=== PATIENT | male | born 1960 | race Caucasian/White ===

== ENCOUNTER → 2019-12-03 | Outpatient (CLI) | payer MEDICARE ==
--- NOTE | 2019-12-03 12:09 | NM ---
EXAMINATION TYPE: NM stress lexiscan cardiolite DATE OF EXAM: 12/03/2019 COMPARISON: None HISTORY: Chest pain TECHNIQUE: Patient received 9.8 and 26.3 mCi technetium 99m Cardiolite intravenously on protocol was 0.4 mg Lexiscan IV FINDINGS: Review of stress and rest SPECT images demonstrates decreased radio pharmaceutical uptake on stress a nd rest images along the inferolateral left ventricle extending to the cardiac apex. There is some d ecreased uptake along the lateral wall towards apex greater on stress images than on rest images, dec reased uptake along the portion of the apex greater on stress than on rest images. Gated analysis asya ws normal wall motion with an estimated left ventricular ejection fraction of 58 %. 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 A Yellow level critical message alert has been initiated for Cely Gillespie DO via the [employer] Critical Results System on 12/03/2019 12:06 PM. This message alert has been sent [facility] via the preferences provided by the clinician for the receipt of Radiology Critical Findings . Message ID [id number].
--- NOTE | 2019-12-03 14:21 | ECHOS ---
STRESS ECHOCARDIOGRAM LUMASON: VIAL: INDICATIONS: Chest pain. MEDICATIONS: BASELINE HEART RATE: 78 BASELINE BLOOD PRESSURE: 139/68 MAXIMUM HEART RATE: 113 MAXIMUM BLOOD PRESSURE: 144/92 85% MPHR: 139 100% MPHR: 163 METS: MAXIMUM STAGE REACHED: TOTAL EXERCISE TIME: CLINICAL INFORMATION: Baseline EKG revealed normal sinus rhythm without significant ST-T changes. There was an incomplete right bundle branch block pattern. With Lexiscan administration heart rate changed from 78 to 108 beats per minute and blood pressure changed from 139/68 to 134/91. EKG remained unremarkable and patient was asymptomatic. IMPRESSION: 1. By EKG criteria, this is an unremarkable Lexiscan stress test with minor resting EKG changes. 2. The nuclear scan results which are more pertinent will be reported by the radiologist. MMESTUARDO / IJN: [id number] /
== END | disposition home or self-care (01) ==
LOC: RADNMMAIN 08:15
PROVIDERS: ATTEND Family Medicine
DX: I25.2 Old myocardial infarction (principal)
CPT/HCPCS: 93017; 78452; A9500

== ENCOUNTER → 2019-12-14 | Outpatient (CLI) | payer MEDICARE ==
[2019-12-14 08:27] LABS: MCH 32.4 pg (25.0-35.0); MCHC 32.3 g/dL (31.0-37.0); MCV 100.4 fL (80.0-100.0); Mean Platelet Volume 6.5; Platelet Count 259 k/uL (150-450); RBC 5.56 m/uL (4.30-5.90); RDW 13.2 % (11.5-15.5); WBC 9.1 k/uL (3.8-10.6)
[2019-12-14 08:28] LABS: Potassium 4.5 mmol/L (3.5-5.1)
[2019-12-14 08:40] LABS: HCT 55.9 % (39.0-53.0)
== END | disposition home or self-care (01) ==
LOC: LABPAT 07:04
PROVIDERS: ATTEND Internal Medicine Cardiovascular Disease
DX: Z01.818 Encounter for other preprocedural examination (principal); R07.2 Precordial pain
CPT/HCPCS: 36415; 80051; 82565; 84520; 85027

== ENCOUNTER → 2019-12-17 | Day surgery (SDC) | payer MEDICARE ==
[2019-12-16 09:38] VITALS: BMI 38.2
[~2019-12-17] MED LIST: ALPRAZolam 0.25 MG TAB PO PRN; ALPRAZolam 0.5 MG TAB PO PRN; ASPIRIN 325 MG TAB PO ONE; ASPIRIN 81 MG PO SCH; ATORVASTATIN 80 MG TAB PO ONE; ATROPINE SULFATE 0.1 MG/ML 10ML SYRINGE IV PRN; CLOPIDOGREL 75 MG TAB ONE; CLOPIDOGREL 75 MG TAB PO ONE; CLOPIDOGREL 75 MG TAB PO SCH; HEPARIN SODIUM 1,000 UN/ML (10ML VL) IV ONE; HEPARIN SODIUM 1,000 UN/ML (10ML VL) ONE; IOPAMIDOL-370 100ML BTL INJ ONE; IOPAMIDOL-370 125ML BTL INJ ONE; LIDOCAINE 1% INJ 10MG/ML (20 ML MDV) ONE; LIDOCAINE 1% INJ 10MG/ML (20 ML MDV) SQ ONE; MAG HYDROX/AL HYDROX/SIMETH 30 ML CUP PO PRN; MIDAZOLAM 2 MG/2 ML VIAL IVP ONE; NITROGLYCERIN SL TABS 0.4 MG TAB SUBLINGUAL PRN; RX INFO: IV CONTRAST WAS GIVEN 1 EACH MISC MISCELLANE PRN; SODIUM CHLORIDE 0.9% 1,000 ML in EMPTY BAG 1 BAG IV ONE; ZOLPIDEM 5 MG TAB PO PRN; fentaNYL (PF) 50 MCG/ML 2 ML AMP IV ONE; fentaNYL (PF) 50 MCG/ML 2 ML AMP ONE
[2019-12-17 06:59] VITALS: RESP 18; TEMP 97.9
--- NOTE | 2019-12-17 08:59 | P.PRCINT ---
Percutaneous Coronary Int. - Percutaneous Coronary Intervention Percutaneous Coronary Intervention: PROCEDURES PERFORMED: Selective left coronary angiography, iFR of mid LAD, successful PCI of mid LAD with overlapping 3.0 x 15 mm and 2.75 x 8 mm Xience SHERINE. INDICATION: Abnormal stress test, angina HISTORY: Patient is a 59-year-old male with history of tobacco abuse, hypertension who has been having chest pain over the last few weeks. Patient had a stress test which showed inferior ischemia. Patient had a diagnostic catheterization performed by my partner and I was asked to evaluate for possible PCI. PROCEDURE: After the risks, benefits and alternatives of the above mentioned procedure explained in detail with the patient, informed consent was obtained. The decision was made to iFR the LAD given it was indeterminate and ischemia was in the inferior territory. A 6Fr sheath had been placed in the right femoral artery using modified Seldinger technique. A 6Fr CLS 3.5 guide catheter was used to engage the left main. A 0.014 pressure guidewire was placed distal to the mid LAD lesion and iFR was performed. iFR was positive at 0.85. A 0.014 BMW wire was advanced into the distal LAD and then a second BMW wire was placed in the diagonal branch. The lesion was predilated with a 2.75 x 12 mm balloon. Next, a 3.0 x 15 mm Xience SHERINE was deployed. There was a distal stent dissection and therefore this was covered with a 2.75 x 8 mm Xience SHERINE. Preintervention there was a 60-70 % stenosis and ERIC 3 flow and post intervention there was 0% residual stenosis and ERIC 3 flow without evidence of dissection. The wire was removed and final angiograms were taken. A right femoral angiogram was performed and showed adequate anatomy for closure. An Angio-Seal was placed. The patient tolerated the procedure well. Patient was transported back to the post catheterization holding area in stable condition. Conscious Sedation: Patient was monitored under the direct supervision of vision of myself for conscious sedation using Versed and fentanyl for a total duration of 45 minutes HEMODYNAMICS: Aorta: 132/72 SELECTIVE CORONARY ARTERIOGRAPHY: LEFT MAIN: The left main is a large caliber vessel which bifurcates into the LAD and circumflex. There is no significant stenosis. LEFT ANTERIOR DESCENDING CORONARY ARTERY: LAD is a large caliber vessel which wraps around to the apex. There is a mid LAD 60-70% stenosis just before a small to moderate caliber diagonal 2 branch without significant disease. LEFT CIRCUMFLEX CORONARY ARTERY: Left circumflex is a moderate caliber vessel without significant stenosis. RIGHT CORONARY ARTERY: Not imaged, see diagnostic report FINAL IMPRESSION: 1. Coronary artery disease as above with iFR positive mid LAD lesion at 0.85 2. Successful PCI of mid LAD with overlapping 3.0 x 15 mm and 2.75 x 8 mm Xience SHERINE. PLAN: 1. Aggressive risk factor modification per most recent ACC/AHA guidelines. 2. Follow-up in the office in 1-2 weeks. 3. Tobacco cessation 4. Dual antiplatelets for 12 months.
[2019-12-17 12:15] VITALS: PULSE 70
--- NOTE | 2019-12-17 13:26 | CC ---
CARDIAC CATHETERIZATION REPORT INDICATION: Chest pain with abnormal stress test. PROCEDURE NOTE: After obtaining informed consent, left heart catheterization and coronary angiogram are performed via the right femoral artery using standard Erich catheters. Patient tolerated the procedure well without any obvious immediate complications. The patient received moderate conscious sedation. Total sedation time was 15 minutes. FINDINGS: HEMODYNAMICS: Left ventricular end-diastolic pressure is 12-14 mm. There is no significant gradient across the aortic valve. LEFT VENTRICULOGRAM: Not performed. ANGIOGRAPHIC DATA: LEFT MAIN CORONARY ARTERY: Left main coronary artery is a normal-sized vessel and is free of stenosis. Divides into left anterior descending coronary artery and circumflex coronary artery. CIRCUMFLEX CORONARY ARTERY: Circumflex coronary artery is a nondominant vessel and is free of significant disease. LEFT ANTERIOR DESCENDING CORONARY ARTERY: Left anterior descending coronary artery shows a focal area of stenosis in the proximal part which seems to be a 50% to 70% stenosis. RIGHT CORONARY ARTERY: Right coronary artery is a large dominant vessel, shows mild atherosclerotic plaque in the proximal portion but there are no focal hemodynamically significant lesions. CONCLUSIONS: Moderate to severe area of stenosis in the proximal LAD. PLAN: I am going to ask Dr. Rai the on-call vp outcomes to evaluate the LAD and either do angioplasty of the vessels or at least perform an FFR. It does not correlate with the patient's stress test. The patient definitely had symptoms suggestive of angina. MMODL / IJN: [id number] /
[2019-12-17 14:17] VITALS: BP 125/73
== END ==
LOC: CATHCVL 06:23
PROVIDERS: ATTEND Internal Medicine Cardiovascular Disease
DX: I25.10 Atherosclerotic heart disease of native coronary artery without angina pectoris (principal); R94.39 Abnormal result of other cardiovascular function study; R07.89 Other chest pain; R07.2 Precordial pain; I45.10 Unspecified right bundle-branch block; E78.5 Hyperlipidemia, unspecified; F32.9 Major depressive disorder, single episode, unspecified; E78.2 Mixed hyperlipidemia; I10 Essential (primary) hypertension; F17.210 Nicotine dependence, cigarettes, uncomplicated; Z79.899 Other long term (current) drug therapy; Z79.890 Hormone replacement therapy; Z82.49 Family history of ischemic heart disease and other diseases of the circulatory system
CPT/HCPCS: 93571; 93458; 85347; C9600; C1769 ×3; C1760; C1887; C1725; C1894; C1874; J2250; J2001; J3010; J1644; Q9967 ×2

== ENCOUNTER 2021-06-25 11:47 | Inpatient (IN) | payer BC, MEDICARE, OTHER ==
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
[2021-06-25 12:42] LABS: Basophils # (A) 0.1 k/uL (0-0.2); Basophils % (A) 1 %; Eosinophils # (A) 0.2 k/uL (0-0.7); Eosinophils % (A) 2 %; HCT 54.6 % (39.0-53.0); HGB 17.7 gm/dL (13.0-17.5); Lymphocytes # (A) 1.8 k/uL (1.0-4.8); Lymphocytes % (A) 19 %; MCH 33.9 pg (25.0-35.0); MCHC 32.3 g/dL (31.0-37.0); MCV 104.9 fL (80.0-100.0); Macrocytosis Moderate; Monocytes # (A) 0.7 k/uL (0-1.0); Monocytes % (A) 8 %; Neutrophils # (A) 6.6 k/uL (1.3-7.7); Neutrophils % (A) 69 %; Platelet Count 214 k/uL (150-450); RBC 5.21 m/uL (4.30-5.90); WBC 9.6 k/uL (3.8-10.6)
[2021-06-25 12:53] LABS: ALT 24 U/L (4-49); AST 27 U/L (17-59); African American GFR (CKD) >90 (>60 ml/min/1.73 sqM); Alkaline Phosphatase 117 U/L (38-126); Anion Gap 5 mmol/L; Blood Urea Nitrogen 10 mg/dL (9-20); Calcium 8.6 mg/dL (8.4-10.2); Carbon Dioxide 34 mmol/L (22-30); Chloride 93 mmol/L (98-107); Glucose 103 mg/dL (74-99); Non-African American GFR(CKD) 90 (>60 ml/min/1.73 sqM); Potassium 4.3 mmol/L (3.5-5.1); Sodium 132 mmol/L (137-145); Total Bilirubin 0.8 mg/dL (0.2-1.3); Total Protein 6.9 g/dL (6.3-8.2)
--- NOTE | 2021-06-25 12:57 | XR ---
EXAMINATION TYPE: XR chest 2V DATE OF EXAM: 06/25/2021 COMPARISON: NONE TECHNIQUE: PA and lateral views submitted. HISTORY: Chest pain FINDINGS: Heart is prominent there is a coarsened interstitium with bibasilar infiltrate and tiny effusion. Art hropathy of the shoulders with biapical pleural thickening but no pneumothorax. IMPRESSION: 1. Correlate for mild CHF otherwise consider interstitial pneumonia or pneumonitis.
[2021-06-25 13:06] LABS: INR 1.1 (<1.2); Partial Thromboplastin Time 26.8 sec (22.0-30.0); Prothrombin Time 11.3 sec (9.0-12.0)
--- NOTE | 2021-06-25 14:38 | CT ---
EXAMINATION TYPE: CT angio chest DATE OF EXAM: 06/25/2021 COMPARISON: No previous CT scan is available for comparison. HISTORY: SHELL (difficulty breathing) CT DLP: 666 mGy.cm. Automated Exposure Control for Dose Reduction was Utilized. TECHNIQUE AND CONTRAST: CTA scan of the thorax is performed with IV Contrast, patient injected with 100 mL of Isovue 370, pul monary angiogram protocol. MIP Images are created on an independent workstation and reviewed. FINDINGS: Suboptimal CT scan with artifactual images and suboptimal enhancement of the pulmonary arteries. No d efinite filling defect within the pulmonary trunk, main pulmonary arteries, lobar and segmental branc hes to suggest pulmonary embolism. Subsegmental branches are suboptimally assessed. The pulmonary hector nk measures 3.4 cm, suggestive of pulmonary hypertension. Coronary and arterial atherosclerotic calci fications. No gross cardiomegaly. Scattered bilateral subsegmental pulmonary atelectasis with minimal infiltration in the posterior asp ect of the lung bases. Pulmonary edema can't be excluded. No gross lung lesion identified with the li mitation of the artifactual images. Expiratory exposure. Patent trachea and main bronchi. No pericard ial or pleural effusion. Questionable prominent right superior paratracheal lymph node versus cyst measuring 10 mm. 9.5 mm rig ht inferior paratracheal lymph node with 13 mm subcarinal lymph node. No other pathologically enlarge d lymph nodes in the chest by this CT angiographic study. Bulky liver with suspected hepatic steatosi s. Degenerative changes of the thoracic spine. IMPRESSION: With the limitation of the artifactual images, no major or central pulmonary embolism. Suspected pulm onary edema. Prominent lymph nodes as described above, for precautionary follow-up CT scan in 3 month s for reassessment. Other findings as described above.
[2021-06-25] MEDS ORDERED: NALOXONE 0.4 MG/ML 1 ML VIAL IV PRN (15:03)
[2021-06-25] MEDS ORDERED: ACETAMINOPHEN TAB 325 MG TAB PO PRN (15:03)
[2021-06-25] MEDS ORDERED: predniSONE 50 MG TAB PO STA (15:06)
[2021-06-25 15:07] LABS: VBG PH 7.29 (7.31-7.41)
[2021-06-25 15:15] LABS: Appearance,Urine Clear (Clear); Bilirubin,Urine Negative (Negative); Blood,Urine Negative (Negative); Color,Urine Yellow; Glucose,Urine (UA) Negative (Negative); Ketones,Urine Negative (Negative); Leukocyte Esterase,Urine Negative (Negative); Nitrite,Urine Negative (Negative); PH, Urine 6.5 (5.0-8.0); Protein,Urine Negative (Negative); Urobilinogen,Urine <2.0 mg/dL (<2.0)
[2021-06-25] MEDS: IPRATROPIUM-ALBUTEROL 3 ML NEB INHALATION SCH ×2 (15:21→19:55)
[2021-06-25 18:17] LABS: VBG PH 7.24 (7.31-7.41)
[2021-06-25] MEDS ORDERED: LORazepam 2 MG/ML INJ IV PRN (19:31)
[2021-06-25] MEDS ORDERED: THIAMINE 100 MG/ML 2 ML VIAL IM STA (19:31)
[2021-06-25] MEDS: OLANZapine 10 MG TAB PO SCH (20:23)
[2021-06-25] MEDS: lamoTRIgine 100 MG TAB PO SCH (20:23)
[2021-06-25] MEDS: ESCITALOPRAM 20 MG TAB PO SCH (20:23)
[2021-06-25] MEDS: THIAMINE 100 MG TAB PO SCH (20:25)
[2021-06-26] MEDS: LORazepam 2 MG/ML INJ IV PRN ×5 (04:48→22:59)
[2021-06-26] MEDS: LEVOTHYROXINE 25 MCG TAB PO SCH (05:36)
[2021-06-26] MEDS: THIAMINE 100 MG TAB PO SCH ×2 (05:36→16:50)
[2021-06-26] MEDS: ASPIRIN 81 MG PO SCH (08:22)
[2021-06-26] MEDS: ISOSORBIDE MONONITRATE ER 30 MG TAB.ER.24H PO SCH (08:22)
[2021-06-26] MEDS: MULTIVITAMINS, THERA 1 EACH TAB PO SCH (08:22)
[2021-06-26] MEDS: lamoTRIgine 100 MG TAB PO SCH ×2 (08:22→20:21)
[2021-06-26] MEDS ORDERED: FUROSEMIDE 10 MG/ML 4 ML VIAL IV STA (08:53)
[2021-06-26] MEDS ORDERED: predniSONE 50 MG TAB PO SCH (09:00)
[2021-06-26] MEDS: IPRATROPIUM-ALBUTEROL 3 ML NEB INHALATION SCH ×5 (09:09→19:14)
[2021-06-26] MEDS: methylPREDNISolone SOD SUCCI 40 MG/ML 1 ML VIAL IV SCH ×3 (09:27→23:01)
[2021-06-26 11:06] LABS: ABG Base Excess 15.6 mmol/L; ABG Oxygen Saturation 91.4 % (94-97); ABG PH 7.37 (7.35-7.45); ABG TCO2 43 mmol/L (19-24); Allen Test Performed? Yes
[2021-06-26 11:10] LABS: ABG PCO2 71 mmHg (35-45); ABG PO2 56 mmHg (83-108)
[2021-06-26 11:11] LABS: ABG HCO3 41 mmol/L (21-25)
[2021-06-26 11:35] LABS: African American GFR (CKD) >90 (>60 ml/min/1.73 sqM); Anion Gap 4 mmol/L; Blood Urea Nitrogen 11 mg/dL (9-20); Calcium 9.3 mg/dL (8.4-10.2); Chloride 96 mmol/L (98-107); Glucose 112 mg/dL (74-99); Non-African American GFR(CKD) 80 (>60 ml/min/1.73 sqM); Potassium 4.2 mmol/L (3.5-5.1); Sodium 140 mmol/L (137-145)
[2021-06-26 11:55] LABS: Carbon Dioxide 40 mmol/L (22-30)
--- NOTE | 2021-06-26 13:00 | ECHOF ---
Referral Reason:wilberto MEASUREMENTS -------- HEIGHT: 167.6 cm WEIGHT: 116.1 kg BP: IVSd: 1.3 cm (0.6 - 1.1) LVIDd: 3.2 cm (3.9 - 5.3) LVPWd: 1.5 cm (0.6 - 1.1) IVSs: 1.5 cm LVIDs: 1.5 cm LVPWs: 1.7 cm Ao Diam: 3.3 cm (2.0 - 3.7) LA Diam: 3.6 cm (2.7 - 3.8) RAP: 5.00 mmHg RVSP: 9.71 mmHg FINDINGS -------- This was a technically difficult study with suboptimal views. The left ventricular size is normal. There is moderate concentric left ventricular hypertrophy. O verall left ventricular systolic function is normal with, an EF between 55 - 60 %. The RV was not well visualized. The left atrial size is normal. The right atrium was not well visualized. Lumason used The aortic valve was not well visualized. The mitral valve was not well visualized. The tricuspid valve was not well visualized. The pulmonic valve was not well visualized. The aortic root size is normal. IVC Not well visulized. CONCLUSIONS -------- 1. The left ventricular size is normal. 2. There is moderate concentric left ventricular hypertrophy. 3. Overall left ventricular systolic function is normal with, an EF between 55 - 60 %. TALENT ACQUISITION ASSISTANT: Maddy Dia [facility]
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
[2021-06-26] MEDS: FUROSEMIDE 10 MG/ML 4 ML VIAL IV SCH ×2 (16:00→23:02)
[2021-06-26] MEDS: ENOXAPARIN 40 MG/0.4 ML SYRINGE SQ SCH (16:01)
[2021-06-26] MEDS: SYMBICORT 160-4.5 MCG INHALER INHALATION SCH (19:16)
[2021-06-26 20:13] LABS: Glucose,Whole Blood 177 mg/dL (75-99)
[2021-06-26] MEDS: ATORVASTATIN 40 MG TAB PO SCH (20:21)
[2021-06-26] MEDS: ESCITALOPRAM 20 MG TAB PO SCH (20:21)
[2021-06-26] MEDS: OLANZapine 10 MG TAB PO SCH (20:22)
[2021-06-26] MEDS: INSULIN ASPART (NovoLOG) 100 UNIT/ML VIAL SQ SCH (20:24)
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
[2021-06-27 06:04] LABS: Glucose,Whole Blood 116 mg/dL (75-99)
[2021-06-27] MEDS: LEVOTHYROXINE 25 MCG TAB PO SCH (06:04)
[2021-06-27] MEDS: INSULIN ASPART (NovoLOG) 100 UNIT/ML VIAL SQ SCH ×3 (06:04→17:08)
[2021-06-27] MEDS: PANTOPRAZOLE 40 MG TABLET PO SCH (06:05)
[2021-06-27] MEDS: THIAMINE 100 MG TAB PO SCH ×2 (06:05→15:12)
[2021-06-27] MEDS: SYMBICORT 160-4.5 MCG INHALER INHALATION SCH ×3 (07:31→19:34)
[2021-06-27] MEDS: IPRATROPIUM-ALBUTEROL 3 ML NEB INHALATION SCH ×4 (07:31→19:19)
[2021-06-27] MEDS: FUROSEMIDE 10 MG/ML 4 ML VIAL IV SCH (08:07)
[2021-06-27] MEDS: methylPREDNISolone SOD SUCCI 40 MG/ML 1 ML VIAL IV SCH ×2 (08:08→15:13)
[2021-06-27] MEDS: lamoTRIgine 100 MG TAB PO SCH ×2 (08:11→21:05)
[2021-06-27] MEDS: MULTIVITAMINS, THERA 1 EACH TAB PO SCH (08:12)
[2021-06-27] MEDS: ISOSORBIDE MONONITRATE ER 30 MG TAB.ER.24H PO SCH (08:12)
[2021-06-27] MEDS: ENOXAPARIN 40 MG/0.4 ML SYRINGE SQ SCH (08:12)
[2021-06-27] MEDS: ASPIRIN 81 MG PO SCH (08:12)
[2021-06-27] MEDS: LORazepam 2 MG/ML INJ IV PRN ×5 (08:13→23:33)
--- NOTE | 2021-06-27 08:34 | XR ---
EXAMINATION TYPE: XR chest 1V portable DATE OF EXAM: 06/27/2021 COMPARISON: 06/25/2021 HISTORY: Shortness of breath TECHNIQUE: Single frontal view of the chest is obtained. FINDINGS: Bilateral infiltrate and small left effusion with coarsened interstitium and mild cardiome ladan. No pneumothorax. Arthropathy of the shoulders. IMPRESSION: Correlate for mild CHF or interstitial pneumonitis. Superimposed left lower lobe infiltrate not exclu ded.
[2021-06-27 09:15] LABS: Basophils % (A) 0 %; Eosinophils % (A) 0 %; HGB 18.3 gm/dL (13.0-17.5); Hypochromasia Slight; Lymphocytes # (A) 1.9 k/uL (1.0-4.8); Lymphocytes % (A) 15 %; MCHC 32.2 g/dL (31.0-37.0); MCV 108.8 fL (80.0-100.0); Macrocytosis Marked; Mean Platelet Volume 7.1; Monocytes # (A) 0.7 k/uL (0-1.0); Monocytes % (A) 5 %; Neutrophils # (A) 9.7 k/uL (1.3-7.7); Neutrophils % (A) 77 %; Platelet Count 241 k/uL (150-450); RBC 5.22 m/uL (4.30-5.90); RDW 14.6 % (11.5-15.5); WBC 12.6 k/uL (3.8-10.6)
[2021-06-27 09:25] LABS: ALT 22 U/L (4-49); AST 22 U/L (17-59); African American GFR (CKD) >90 (>60 ml/min/1.73 sqM); Albumin 4.2 g/dL (3.5-5.0); Alkaline Phosphatase 111 U/L (38-126); Blood Urea Nitrogen 21 mg/dL (9-20); Calcium 9.5 mg/dL (8.4-10.2); Chloride 91 mmol/L (98-107); Glucose 139 mg/dL (74-99); Non-African American GFR(CKD) 82 (>60 ml/min/1.73 sqM); Potassium 3.7 mmol/L (3.5-5.1); Sodium 139 mmol/L (137-145); Total Bilirubin 0.9 mg/dL (0.2-1.3); Total Protein 7.2 g/dL (6.3-8.2)
[2021-06-27 09:28] LABS: HCT 56.7 % (39.0-53.0)
[2021-06-27 09:32] LABS: Anion Gap 11 mmol/L
[2021-06-27 09:40] LABS: Carbon Dioxide 37 mmol/L (22-30)
--- NOTE | 2021-06-27 11:03 | P.PN ---
Subjective Progress Note Date: 06/27/21 Principal diagnosis: Altered mental status, confusion, shortness of breath This is a 61-year-old white male with history of coronary artery disease, previous PCI of mid LAD done back in 2019, known history of COPD, patient is at least a [id number] smoker, history of degenerative joint disease, seizure disorder, patient presented to the ER with 2 weeks history of intermittent episodes of cough, wheezing, shortness of breath, and fatigue. Patient has been experiencing difficulty laying flat, and in spite of all of this, the patient continues to smoke on a daily basis. Workup in the ER showed relative hypoxemia, hypercapnia, and acute on chronic respiratory acidosis with metabolic compensation. His pCO2 was high as 84, and on BiPAP, ABG showed a pO2 of 56 pCO2 71 pH of 7.37 and this was on 55% FiO2 with IPAP of 12 and EPAP of 6. His bicarb was about 40. Troponin was relatively normal. Chest x-ray and CT of the chest consistent with congestive heart failure, and no evidence of pulmonary embolism, there was also some nonspecific prominence of the lymph nodes in the subcarinal area. However the size was anywhere between 10 mm up to 30 mm. At any rate patient was in moderate respiratory distress, admitted, placed on diuretics, bronchodilators, and I was asked to see him on consultation. Patient was quite short of breath, could not give me much history, however I was able to get most of the history from his at bedside. Patient had no fever, no ch ills, no hemoptysis and no chest pain. No nausea no vomiting no abdominal pain, no melena and no hematemesis. On 06/27/2021 patient seen in follow-up on selective care unit. Still remains on BiPAP with pressures of 12 and 6 and FiO2 of 35%, and his pulse ox is at 90- 91%. He is arousable, but still lethargic, he did receive a couple doses of Ativan through the night for restlessness per CIWA protocol. He is answering simple questions, he continues on Lasix 40 mg every 8 hours, he is in -1682 mL net fluid balance over the last 24 hours, still continues with a diffuse wheezing, and coughing, no phlegm production. Today's chest x-ray continues to show bilateral infiltrate and small pleural effusion with coarsened interstitium and mild cardiomegaly. Echocardiogram showed moderate concentric LVH, and EF of 55-60%. His labs have been reviewed, white blood cell count is 12.6, hemoglobin is 18.3, sodium is 139, potassium is 3.7, chloride is 91, CO2 37, BUN is 21 creatinine is 1. Procan SR level was negative, troponins were negative 3. Objective - Vital Signs Vital signs: Vital Signs Temp 97.6 F 06/27/21 07:23 Pulse 94 06/27/21 07:57 Resp 20 06/27/21 07:23 BP 137/81 06/27/21 07:23 Pulse Ox 91 L 06/27/21 07:36 Intake & Output 06/26/21 06/27/21 06/27/21 18:59 06:59 18:59 Intake Total 118 240 Output Total 1800 Balance -1682 240 Intake: Oral 118 240 Output: Urine 1800 Other: Voiding Method External Catheter External Catheter Urinal - Exam GENERAL EXAM: Arousable to voice, able to answer simple questions, 61-year-old white male on BiPAP support with pressures of 12 and 6 and FiO2 of 35% comfortable in no apparent distress. HEAD: Normocephalic/atraumatic. EYES: Normal reaction of pupils, equal size. Conjunctiva pink, sclera white. NOSE: Clear with pink turbinates. THROAT: No erythema or exudates. NECK: No masses, no JVD, no thyroid enlargement, no adenopathy. CHEST: No chest wall deformity. Symmetrical expansion. LUNGS: Equal air entry with diffuse wheezes CVS: Regular rate and rhythm, normal S1 and S2, no gallops, no murmurs, no rubs ABDOMEN: Soft, nontender. No hepatosplenomegaly, normal bowel sounds, no guarding or rigidity. EXTREMITIES: No clubbing, no edema, no cyanosis, 2+ pulses and upper and lower extremities. MUSCULOSKELETAL: Muscle strength and tone normal. SPINE: No scoliosis or deformity SKIN: No rashes CENTRAL NERVOUS SYSTEM: Lethargic but arousable. No focal deficits, tone is normal in all 4 extremities. - Labs CBC & Chem 7: 06/27/21 08:30 06/27/21 08:30 Labs: Abnormal Lab Results - Last 24 Hours (Table) 06/26/21 06/26/21 06/26/21 Range/Units 10:49 11:03 20:11 WBC (3.8-10.6) k/uL Hgb (13.0-17.5) gm/dL Hct (39.0-53.0) % MCV (80.0-100.0) fL Neutrophils # (1.3-7.7) k/uL Macrocytosis ABG pCO2 71 H* (35-45) mmHg ABG pO2 56 L* (83-108) mmHg ABG HCO3 41 H* (21-25) mmol/L ABG Total CO2 43 H (19-24) mmol/L ABG O2 Saturation 91.4 L (94-97) % Chloride 96 L (98-107) mmol/L Carbon Dioxide 40 H (22-30) mmol/L BUN (9-20) mg/dL Glucose 112 H (74-99) mg/dL POC Glucose (mg/dL) 177 H (75-99) mg/dL 06/27/21 06/27/21 06/27/21 Range/Units 06:01 08:30 08:30 WBC 12.6 H (3.8-10.6) k/uL Hgb 18.3 H (13.0-17.5) gm/dL Hct 56.7 H (39.0-53.0) % MCV 108.8 H (80.0-100.0) fL Neutrophils # 9.7 H (1.3-7.7) k/uL Macrocytosis Marked A ABG pCO2 (35-45) mmHg ABG pO2 (83-108) mmHg ABG HCO3 (21-25) mmol/L ABG Total CO2 (19-24) mmol/L ABG O2 Saturation (94-97) % Chloride 91 L (98-107) mmol/L Carbon Dioxide 37 H (22-30) mmol/L BUN 21 H (9-20) mg/dL Glucose 139 H (74-99) mg/dL POC Glucose (mg/dL) 116 H (75-99) mg/dL Assessment and Plan Plan: Assessment: #1. Acute exacerbation of diastolic CHF #2. Acute exacerbation of COPD #3. Acute on chronic hypoxic and hypercapnic respiratory failure related to the above #4. [id number] smoking history #5. History of coronary artery disease previous PCI and stenting #6. History of alcohol abuse, chronic and ongoing #7. Obstructive sleep apnea, not on CPAP, awaiting outpatient sleep study #8. Depression Plan: Continue current dose of steroids Continue nebulized bronchodilators and diuretics Patient remains on BiPAP, may trial him on nasal cannula GI and DVT prophylaxis Provide a rhic systems safety engineer at the bedside if the family is not at the bedside Cardiology recs Will continue to follow I have personally seen and examined the patient, performed the documentation and the assessment and plan as written. Number of minutes spent on the visit: [10] Time with Patient: Less than 30
[2021-06-27 11:59] LABS: Glucose,Whole Blood 124 mg/dL (75-99)
--- NOTE | 2021-06-27 12:00 | P.PN ---
Subjective This is a pleasant 61-year-old male past medical history significant for coronary artery disease status post PCI proximal LAD in 12/2019 in the setting of an abnormal stress test, dyslipidemia, chronic nicotine dependence (currently smokes 2PPD), alcohol abuse. He follows in the office with Dr. Perez. We have been asked to see in consultation for chest pain, shortness of breath. Patient presents to the emergency department with worsening shortness of breath and fatigue and edema. Shortness of breath occurs with activity and at rest. He did have an episode of non-radiating, non-exertional chest pain yesterday, which resolved. On admission patient found. Hypoxic 86% on room air and was started on BIPAP. DIAGNOSTICS Chest xray mild congestive heart failure. CTA- suboptimal with artifactual images. No definite filling defect to suggest pulmonary embolism, scattered bilateral subsegmental pulmonary have discussed with minimal infiltration. Pulmonary edema cannot be Excluded. Echocardiogram- difficult to visualize valves, EF 55-60% moderate concentric LVH Laboratory reviewed, troponin negative 3, sodium 132, proBNP 830, pH 7.37 pCO2 71, pO2 56, HCO3 41, UA negative, COVID-19 negative. 06/27/2021 Patient seen and examined at bedside. Continues to be in BIPAP. He is confused. Given currently being treated for alcohol withdrawal. Chest xray revealed bilateral infiltrate and small pleural effusion with coarsened interstitium and mild cardiomegaly. He continues to have cough and wheezing. He is maintained on IV Lasix, with -1682 fluid balance. PHYSICAL EXAMINATION Vitals reviewed CONSTITUTIONAL: Confused. HEENT:Neck Supple. No JVD. CHEST EXAMINATION: Lungs are diminished, decrease breath sounds bilaterally to auscultation, wheezing noted. No chest wall tenderness is noted on palpation or with deep breathing. HEART EXAMINATION: Regular rate and rhythm. S1, S2 heard. No murmurs, gallops or rub. ABDOMEN: Soft, nontender. Positive bowel sounds. EXTREMITIES: 2+ peripheral pulses, trace bilateral lower extremity edema and no calf tenderness. NEUROLOGIC EXAMINATION: Patient is awake, confused. ASSESSMENT Worsening shortness of breath, possibly multifactorial COPD exacerbation and acu te heart failure with preserved ejection fraction Coronary artery disease status post PCI proximal LAD in 12/2019 in the setting of an abnormal stress test Dyslipidemia Chronic nicotine dependence, currently smokes 2PPD History of alcohol abuse PLAN Decrease IV Lasix 20mg Q8hr Monitor renal function and electrolytes Monitor I/Os, daily weights Continue aspirin, statin Currently being given PRN ativan per [facility] protocol Patient not on beta marek or ACEI/ARB due to hypotension Further recommendations based on clinical course Nurse practitioner note has been reviewed by physician. Signing provider agrees with the documented findings, assessment, and plan of care. Objective - Vital Signs Vital signs: Vital Signs Temp 98.3 F 06/27/21 11:15 Pulse 89 06/27/21 11:38 Resp 21 06/27/21 11:15 BP 109/75 06/27/21 11:15 Pulse Ox 91 L 06/27/21 11:15 Intake & Output 06/26/21 06/27/21 06/27/21 18:59 06:59 18:59 Intake Total 118 240 Output Total 1800 Balance -1682 240 Intake: Oral 118 240 Output: Urine 1800 Other: Voiding Method External Catheter External Catheter Urinal - Labs CBC & Chem 7: 06/27/21 08:30 06/27/21 08:30 Labs: Abnormal Lab Results - Last 24 Hours (Table) 06/26/21 06/26/21 06/27/21 Range/Units 10:49 20:11 06:01 WBC (3.8-10.6) k/uL Hgb (13.0-17.5) gm/dL Hct (39.0-53.0) % MCV (80.0-100.0) fL Neutrophils # (1.3-7.7) k/uL Macrocytosis Chloride 96 L (98-107) mmol/L Carbon Dioxide 40 H (22-30) mmol/L BUN (9-20) mg/dL Glucose 112 H (74-99) mg/dL POC Glucose (mg/dL) 177 H 116 H (75-99) mg/dL 06/27/21 06/27/21 Range/Units 08:30 08:30 WBC 12.6 H (3.8-10.6) k/uL Hgb 18.3 H (13.0-17.5) gm/dL Hct 56.7 H (39.0-53.0) % MCV 108.8 H (80.0-100.0) fL Neutrophils # 9.7 H (1.3-7.7) k/uL Macrocytosis Marked A Chloride 91 L (98-107) mmol/L Carbon Dioxide 37 H (22-30) mmol/L BUN 21 H (9-20) mg/dL Glucose 139 H (74-99) mg/dL POC Glucose (mg/dL) (75-99) mg/dL
[2021-06-27] MEDS: FUROSEMIDE 10 MG/ML 2 ML VIAL IV SCH ×2 (15:16→21:05)
[2021-06-27 16:58] LABS: Glucose,Whole Blood 161 mg/dL (75-99)
[2021-06-27 20:01] LABS: Glucose,Whole Blood 142 mg/dL (75-99)
[2021-06-27] MEDS: OLANZapine 10 MG TAB PO SCH (21:04)
[2021-06-27] MEDS: ATORVASTATIN 40 MG TAB PO SCH (21:04)
[2021-06-27] MEDS: ESCITALOPRAM 20 MG TAB PO SCH (21:04)
--- NOTE | 2021-06-27 22:51 | P.PN ---
Subjective Progress Note Date: 06/27/21 He remains on BIPAP today, still lethargic but less short of breath and able to answer questions. His bicarb is improved today. He is getting ativan prn for CIWA protocol. Pt continues on IV lasix with net -1600 ml fluid balance. Objective - Vital Signs Vital signs: Vital Signs Temp 98.9 F 06/27/21 14:50 Pulse 90 06/27/21 19:38 Resp 20 06/27/21 14:50 BP 174/69 06/27/21 14:50 Pulse Ox 93 L 06/27/21 14:50 Intake & Output 06/27/21 06/27/21 06/28/21 06:59 18:59 06:59 Intake Total 720 Output Total 2500 Balance -1780 Intake: Oral 720 Output: Urine 2500 Other: Voiding Method External Catheter Urinal - Exam Gen: well developed male in no acute distress HEENT: on BIPAP CV: RRR, no murmur Lungs: No rhonchi, rales. Minimal wheezing Neuro: Alert. Oriented x3, slow to respond - Labs CBC & Chem 7: 06/27/21 08:30 06/27/21 08:30 Labs: Abnormal Lab Results - Last 24 Hours (Table) 06/27/21 06/27/21 06/27/21 Range/Units 06:01 08:30 08:30 WBC 12.6 H (3.8-10.6) k/uL Hgb 18.3 H (13.0-17.5) gm/dL Hct 56.7 H (39.0-53.0) % MCV 108.8 H (80.0-100.0) fL Neutrophils # 9.7 H (1.3-7.7) k/uL Macrocytosis Marked A Chloride 91 L (98-107) mmol/L Carbon Dioxide 37 H (22-30) mmol/L BUN 21 H (9-20) mg/dL Glucose 139 H (74-99) mg/dL POC Glucose (mg/dL) 116 H (75-99) mg/dL 06/27/21 06/27/21 06/27/21 Range/Units 11:47 16:56 19:59 WBC (3.8-10.6) k/uL Hgb (13.0-17.5) gm/dL Hct (39.0-53.0) % MCV (80.0-100.0) fL Neutrophils # (1.3-7.7) k/uL Macrocytosis Chloride (98-107) mmol/L Carbon Dioxide (22-30) mmol/L BUN (9-20) mg/dL Glucose (74-99) mg/dL POC Glucose (mg/dL) 124 H 161 H 142 H (75-99) mg/dL Assessment and Plan Plan: Continue with BIPAP support, IV steroids, duonebs. Continue lasix. Cardiology and Pulmonology following
[2021-06-28] MEDS: INSULIN ASPART (NovoLOG) 100 UNIT/ML VIAL SQ SCH ×5 (00:10→21:48)
[2021-06-28] MEDS: NICOTINE 21MG/24HR PATCH TRANSDERM SCH ×2 (00:10→08:46)
[2021-06-28] MEDS: LORazepam 2 MG/ML INJ IV PRN ×9 (02:50→21:20)
[2021-06-28] MEDS: methylPREDNISolone SOD SUCCI 40 MG/ML 1 ML VIAL IV SCH ×2 (03:10→08:45)
[2021-06-28] MEDS: PANTOPRAZOLE 40 MG TABLET PO SCH (06:03)
[2021-06-28] MEDS: THIAMINE 100 MG TAB PO SCH ×2 (06:03→16:47)
[2021-06-28] MEDS: LEVOTHYROXINE 25 MCG TAB PO SCH (06:03)
[2021-06-28 06:14] LABS: Glucose,Whole Blood 98 mg/dL (75-99)
[2021-06-28] MEDS: SYMBICORT 160-4.5 MCG INHALER INHALATION SCH ×2 (07:34→20:27)
[2021-06-28] MEDS: IPRATROPIUM-ALBUTEROL 3 ML NEB INHALATION SCH ×4 (07:35→20:27)
[2021-06-28] MEDS: FUROSEMIDE 10 MG/ML 2 ML VIAL IV SCH (08:44)
[2021-06-28] MEDS: ISOSORBIDE MONONITRATE ER 30 MG TAB.ER.24H PO SCH (08:45)
[2021-06-28] MEDS: ASPIRIN 81 MG PO SCH (08:45)
[2021-06-28] MEDS: ENOXAPARIN 40 MG/0.4 ML SYRINGE SQ SCH (08:45)
[2021-06-28] MEDS: MULTIVITAMINS, THERA 1 EACH TAB PO SCH (08:46)
[2021-06-28] MEDS: lamoTRIgine 100 MG TAB PO SCH ×2 (08:46→20:06)
[2021-06-28 09:51] LABS: African American GFR (CKD) >90 (>60 ml/min/1.73 sqM); Blood Urea Nitrogen 25 mg/dL (9-20); Calcium 9.6 mg/dL (8.4-10.2); Chloride 87 mmol/L (98-107); Glucose 99 mg/dL (74-99); Non-African American GFR(CKD) 78 (>60 ml/min/1.73 sqM); Potassium 3.5 mmol/L (3.5-5.1); Sodium 137 mmol/L (137-145)
[2021-06-28 09:59] LABS: Anion Gap 12 mmol/L
[2021-06-28 10:15] LABS: Carbon Dioxide 38 mmol/L (22-30)
[2021-06-28 11:19] LABS: Glucose,Whole Blood 136 mg/dL (75-99)
--- NOTE | 2021-06-28 11:52 | P.PN ---
Subjective Progress Note Date: 06/28/21 Principal diagnosis: Altered mental status, confusion, shortness of breath This is a 61-year-old white male with history of coronary artery disease, previous PCI of mid LAD done back in 2019, known history of COPD, patient is at least a [id number] smoker, history of degenerative joint disease, seizure disorder, patient presented to the ER with 2 weeks history of intermittent episodes of cough, wheezing, shortness of breath, and fatigue. Patient has been experiencing difficulty laying flat, and in spite of all of this, the patient continues to smoke on a daily basis. Workup in the ER showed relative hypoxemia, hypercapnia, and acute on chronic respiratory acidosis with metabolic compensation. His pCO2 was high as 84, and on BiPAP, ABG showed a pO2 of 56 pCO2 71 pH of 7.37 and this was on 55% FiO2 with IPAP of 12 and EPAP of 6. His bicarb was about 40. Troponin was relatively normal. Chest x-ray and CT of the chest consistent with congestive heart failure, and no evidence of pulmonary embolism, there was also some nonspecific prominence of the lymph nodes in the subcarinal area. However the size was anywhere between 10 mm up to 30 mm. At any rate patient was in moderate respiratory distress, admitted, placed on diuretics, bronchodilators, and I was asked to see him on consultation. Patient was quite short of breath, could not give me much history, however I was able to get most of the history from his at bedside. Patient had no fever, no ch ills, no hemoptysis and no chest pain. No nausea no vomiting no abdominal pain, no melena and no hematemesis. On 06/27/2021 patient seen in follow-up on selective care unit. Still remains on BiPAP with pressures of 12 and 6 and FiO2 of 35%, and his pulse ox is at 90- 91%. He is arousable, but still lethargic, he did receive a couple doses of Ativan through the night for restlessness per [facility] protocol. He is answering simple questions, he continues on Lasix 40 mg every 8 hours, he is in -1682 mL net fluid balance over the last 24 hours, still continues with a diffuse wheezing, and coughing, no phlegm production. Today's chest x-ray continues to show bilateral infiltrate and small pleural effusion with coarsened interstitium and mild cardiomegaly. Echocardiogram showed moderate concentric LVH, and EF of 55-60%. His labs have been reviewed, white blood cell count is 12.6, hemoglobin is 18.3, sodium is 139, potassium is 3.7, chloride is 91, CO2 37, BUN is 21 creatinine is 1. Procan SR level was negative, troponins were negative 3. On 06/28/2021 patient seen in follow-up on selective care unit, he is off the BiPAP support, currently on 4 L of oxygen, his pulse ox is 89-95%, breathing comfortably, he is much more awake on today's exam, doing better, he was assisted up to the recliner, tolerating activity well, he remains on Lasix 20 mg 3 tablets a day, IV Solu-Medrol, he is in -1780 mL net fluid balance over the last 24 hours, lower extremity edema is improving. Remains on nebulized bronchodilators, lung sounds reveal diminished breath sounds with some scattered crackles. He is intermittently confused, he is only oriented times to person and place. Did receive a couple doses of Ativan last night for increased restlessness and agitation. Remains on Ativan for COPD protocol. His labs have been reviewed sodium is 137, potassium is 3.5, chloride is 87, CO2 is 38, B1 is 25 creatinine is 1.05. Objective - Vital Signs Vital signs: Vital Signs Temp 98.3 F 06/28/21 08:00 Pulse 79 06/28/21 11:35 Resp 19 06/28/21 11:35 BP 123/78 06/28/21 11:35 Pulse Ox 91 L 06/28/21 08:00 Intake & Output 06/27/21 06/28/21 06/28/21 18:59 06:59 18:59 Intake Total 720 120 Output Total 2500 700 Balance -1780 -580 Intake: Oral 720 120 Output: Urine 2500 700 Other: Voiding Method Urinal Urinal Urinal - Exam GENERAL EXAM: Awake and alert and oriented 2, sitting up in the recliner, intermittently drowsy, but able to answer simple questions, 61-year-old white male on 4 L of oxygen pulse ox of 89-95%, comfortable in no apparent distress. HEAD: Normocephalic/atraumatic. EYES: Normal reaction of pupils, equal size. Conjunctiva pink, sclera white. NOSE: Clear with pink turbinates. THROAT: No erythema or exudates. NECK: No masses, no JVD, no thyroid enlargement, no adenopathy. CHEST: No chest wall deformity. Symmetrical expansion. LUNGS: Equal air entry with mild bibasilar crackles CVS: Regular rate and rhythm, normal S1 and S2, no gallops, no murmurs, no rubs ABDOMEN: Soft, nontender. No hepatosplenomegaly, normal bowel sounds, no guarding or rigidity. EXTREMITIES: No clubbing, no edema, no cyanosis, 2+ pulses and upper and lower extremities. MUSCULOSKELETAL: Muscle strength and tone normal. SPINE: No scoliosis or deformity SKIN: No rashes CENTRAL NERVOUS SYSTEM: Awake and alert oriented 2, but arousable. No focal deficits, tone is normal in all 4 extremities. - Labs CBC & Chem 7: 06/27/21 08:30 06/28/21 07:42 Labs: Abnormal Lab Results - Last 24 Hours (Table) 06/27/21 06/27/21 06/27/21 Range/Units 11:47 16:56 19:59 Chloride (98-107) mmol/L Carbon Dioxide (22-30) mmol/L BUN (9-20) mg/dL POC Glucose (mg/dL) 124 H 161 H 142 H (75-99) mg/dL 06/28/21 06/28/21 Range/Units 07:42 11:17 Chloride 87 L (98-107) mmol/L Carbon Dioxide 38 H (22-30) mmol/L BUN 25 H (9-20) mg/dL POC Glucose (mg/dL) 136 H (75-99) mg/dL Assessment and Plan Plan: Assessment: #1. Acute exacerbation of diastolic CHF #2. Acute exacerbation of COPD #3. Acute on chronic hypoxic and hypercapnic respiratory failure related to the above #4. [id number] smoking history #5. History of coronary artery disease previous PCI and stenting #6. History of alcohol abuse, chronic and ongoing #7. Obstructive sleep apnea, not on CPAP, awaiting outpatient sleep study #8. Depression Plan: Patient is doing better He is off BiPAP support, Still intermittently drowsy at times Blood breathing easier, Maintaining negative fluid balance Continue diuretics per cardiology recommendations May transition the patient to Medrol Dosepak Wean FiO2 to keep O2 sats 88% and above increase activity as tolerated safety precautions I have personally seen and examined the patient, performed the documentation and the assessment and plan as written. Number of minutes spent on the visit: [10] Time with Patient: Less than 30
[2021-06-28] MEDS: methylPREDNISolone 4 MG TAB TAPER PO SCH (12:59)
--- NOTE | 2021-06-28 15:21 | P.PN ---
Subjective This is a pleasant 61-year-old male past medical history significant for coronary artery disease status post PCI proximal LAD in 12/2019 in the setting of an abnormal stress test, dyslipidemia, chronic nicotine dependence (currently smokes 2PPD), alcohol abuse. He follows in the office with Dr. Perez. We have been asked to see in consultation for chest pain, shortness of breath. Patient presents to the emergency department with worsening shortness of breath and fatigue and edema. Shortness of breath occurs with activity and at rest. He did have an episode of non-radiating, non-exertional chest pain yesterday, which resolved. On admission patient found. Hypoxic 86% on room air and was started on BIPAP. DIAGNOSTICS Chest xray mild congestive heart failure. CTA- suboptimal with artifactual images. No definite filling defect to suggest pulmonary embolism, scattered bilateral subsegmental pulmonary have discussed with minimal infiltration. Pulmonary edema cannot be Excluded. Echocardiogram- difficult to visualize valves, EF 55-60% moderate concentric LVH Laboratory reviewed, troponin negative 3, sodium 132, proBNP 830, pH 7.37 pCO2 71, pO2 56, HCO3 41, UA negative, COVID-19 negative. 06/28/2021 Patient seen and examined at bedside. Is refusing to be BIPAP on this morning. He is on 4L nasal cannula. More relaxed this morning. More alert. There continues to be acutely confused. Given currently being treated for alcohol withdrawal. Serum creatinine 1.05, BUN 25. Blood pressure is improved. He is maintained on IV Lasix, with -1780 fluid balance. PHYSICAL EXAMINATION Vitals reviewed CONSTITUTIONAL: Confused. HEENT:Neck Supple. No JVD. CHEST EXAMINATION: Lungs are diminished, decrease breath sounds bilaterally to auscultation, wheezing noted. No chest wall tenderness is noted on palpation or with deep breathing. HEART EXAMINATION: Regular rate and rhythm. S1, S2 heard. No murmurs, gallops or rub. ABDOMEN: Soft, nontender. Positive bowel sounds. EXTREMITIES: 2+ peripheral pulses, trace bilateral lower extremity edema and no calf tenderness. NEUROLOGIC EXAMINATION: Patient is awake, confused. ASSESSMENT Worsening shortness of breath, possibly multifactorial COPD exacerbation and acute heart failure with preserved ejection fraction Coronary artery disease status post PCI proximal LAD in 12/2019 in the setting of an abnormal stress test Dyslipidemia Chronic nicotine dependence, currently smokes 2PPD History of alcohol abuse PLAN Transition to by mouth Lasix 40 mg daily and monitor response. Monitor renal function and electrolytes Monitor I/Os, daily weights Continue aspirin, statin Currently being given PRN ativan per [facility] protocol Patient not on beta marek or ACEI/ARB due to hypotension Further recommendations based on clinical course Nurse practitioner note has been reviewed by physician. Signing provider agrees with the documented findings, assessment, and plan of care. Objective - Vital Signs Vital signs: Vital Signs Temp 98.3 F 06/28/21 08:00 Pulse 79 06/28/21 11:35 Resp 19 06/28/21 11:35 BP 123/78 06/28/21 11:35 Pulse Ox 91 L 06/28/21 11:35 Intake & Output 06/27/21 06/28/21 06/28/21 18:59 06:59 18:59 Intake Total 720 240 Output Total 2500 700 Balance -1780 -460 Intake: Oral 720 240 Output: Urine 2500 700 Other: Voiding Method Urinal Urinal Urinal - Labs CBC & Chem 7: 06/27/21 08:30 06/28/21 07:42 Labs: Abnormal Lab Results - Last 24 Hours (Table) 06/27/21 06/27/21 06/28/21 Range/Units 16:56 19:59 07:42 Chloride 87 L (98-107) mmol/L Carbon Dioxide 38 H (22-30) mmol/L BUN 25 H (9-20) mg/dL POC Glucose (mg/dL) 161 H 142 H (75-99) mg/dL 06/28/21 Range/Units 11:17 Chloride (98-107) mmol/L Carbon Dioxide (22-30) mmol/L BUN (9-20) mg/dL POC Glucose (mg/dL) 136 H (75-99) mg/dL
[2021-06-28 16:25] LABS: Glucose,Whole Blood 158 mg/dL (75-99)
[2021-06-28] MEDS: OLANZapine 10 MG TAB PO SCH (20:05)
[2021-06-28] MEDS: ESCITALOPRAM 20 MG TAB PO SCH (20:06)
[2021-06-28] MEDS: ATORVASTATIN 40 MG TAB PO SCH (20:06)
[2021-06-28 20:23] LABS: Glucose,Whole Blood 113 mg/dL (75-99)
[2021-06-28] MEDS ORDERED: diphenhydrAMINE 50 MG/ML 1 ML VIAL IVP STA (20:48)
[2021-06-28] MEDS ORDERED: HALOPERIDOL LACTATE 5 MG/ML 1 ML VIAL IVP STA (20:48)
--- NOTE | 2021-06-28 23:23 | P.PN ---
Subjective Progress Note Date: 06/28/21 Pt is feeling better today, able to answer questions, up in chair on BIPAP. He is having confusion and agitation, requiring more ativan per [facility] protocol, wanting to take BIPAP off, restless. Solumedrol and lasix switched to PO formulation. Objective - Vital Signs Vital signs: Vital Signs Temp 99.5 F 06/28/21 20:00 Pulse 102 H 06/28/21 20:00 Resp 18 06/28/21 20:00 BP 148/82 06/28/21 20:00 Pulse Ox 90 L 06/28/21 20:00 Intake & Output 06/28/21 06/28/21 06/29/21 06:59 18:59 06:59 Intake Total 240 Output Total 700 Balance -460 Intake: Oral 240 Output: Urine 700 Other: Voiding Method Urinal External Catheter External Catheter - Exam Gen: well developed male in no acute distress HEENT: on BIPAP CV: RRR, no murmur Lungs: No rhonchi, rales. Minimal wheezing Neuro: Alert. Oriented x3, intermittently confused and agitated - Labs CBC & Chem 7: 06/27/21 08:30 06/28/21 07:42 Labs: Abnormal Lab Results - Last 24 Hours (Table) 06/28/21 06/28/21 06/28/21 Range/Units 07:42 11:17 16:24 Chloride 87 L (98-107) mmol/L Carbon Dioxide 38 H (22-30) mmol/L BUN 25 H (9-20) mg/dL POC Glucose (mg/dL) 136 H 158 H (75-99) mg/dL 06/28/21 Range/Units 20:22 Chloride (98-107) mmol/L Carbon Dioxide (22-30) mmol/L BUN (9-20) mg/dL POC Glucose (mg/dL) 113 H (75-99) mg/dL Assessment and Plan Plan: Continue with BIPAP, reduce steroids to PO medrol. Continue with home psych medications. 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 Neurology consult for worsened delerium. Continue [facility] protocol
[2021-06-29] MEDS: LORazepam 2 MG/ML INJ IV PRN ×4 (01:19→08:10)
[2021-06-29] MEDS: PANTOPRAZOLE 40 MG TABLET PO SCH (05:51)
[2021-06-29] MEDS: THIAMINE 100 MG TAB PO SCH ×2 (05:51→17:11)
[2021-06-29] MEDS: LEVOTHYROXINE 25 MCG TAB PO SCH (05:51)
[2021-06-29] MEDS: INSULIN ASPART (NovoLOG) 100 UNIT/ML VIAL SQ SCH ×4 (05:51→20:56)
[2021-06-29 05:59] LABS: Glucose,Whole Blood 96 mg/dL (75-99)
[2021-06-29] MEDS: IPRATROPIUM-ALBUTEROL 3 ML NEB INHALATION SCH ×4 (07:31→19:36)
[2021-06-29] MEDS: SYMBICORT 160-4.5 MCG INHALER INHALATION SCH ×3 (07:32→19:36)
[2021-06-29] MEDS: ISOSORBIDE MONONITRATE ER 30 MG TAB.ER.24H PO SCH (10:17)
[2021-06-29] MEDS: lamoTRIgine 100 MG TAB PO SCH ×2 (10:17→20:55)
[2021-06-29] MEDS: FUROSEMIDE 40 MG TAB PO SCH (10:18)
[2021-06-29] MEDS: ENOXAPARIN 40 MG/0.4 ML SYRINGE SQ SCH (10:18)
[2021-06-29] MEDS: MULTIVITAMINS, THERA 1 EACH TAB PO SCH (10:18)
[2021-06-29] MEDS: NICOTINE 21MG/24HR PATCH TRANSDERM SCH (10:18)
[2021-06-29] MEDS: METOPROLOL TARTRATE 12.5 MG TAB PO SCH ×2 (10:20→20:55)
[2021-06-29] MEDS: ASPIRIN 81 MG PO SCH (10:21)
[2021-06-29] MEDS: methylPREDNISolone 4 MG TAB TAPER PO SCH (10:21)
--- NOTE | 2021-06-29 10:25 | P.PN ---
Subjective This is a pleasant 61-year-old male past medical history significant for coronary artery disease status post PCI proximal LAD in 12/2019 in the setting of an abnormal stress test, dyslipidemia, chronic nicotine dependence (currently smokes 2PPD), alcohol abuse. He follows in the office with Dr. Perez. We have been asked to see in consultation for chest pain, shortness of breath. Patient presents to the emergency department with worsening shortness of breath and fatigue and edema. Shortness of breath occurs with activity and at rest. He did have an episode of non-radiating, non-exertional chest pain yesterday, which resolved. On admission patient found. Hypoxic 86% on room air and was started on BIPAP. DIAGNOSTICS Chest xray mild congestive heart failure. CTA- suboptimal with artifactual images. No definite filling defect to suggest pulmonary embolism, scattered bilateral subsegmental pulmonary have discussed with minimal infiltration. Pulmonary edema cannot be Excluded. Echocardiogram- difficult to visualize valves, EF 55-60% moderate concentric LVH Laboratory reviewed, troponin negative 3, sodium 132, proBNP 830, pH 7.37 pCO2 71, pO2 56, HCO3 41, UA negative, COVID-19 negative. 06/29/2021 Patient seen and examined at bedside. Patient is extremely agitated. Refusing assessment or questioning this morning. Currently being treated for alcohol withdrawal. Blood pressure is improved. He is maintained on PO Lasix, with -1160 fluid balance. Breathing has improved. PHYSICAL EXAMINATION Vitals reviewed CONSTITUTIONAL: Confused. Agitated. Unable to fully assess patient due to refusal, agitation. EXTREMITIES: No lower extremity edema NEUROLOGIC EXAMINATION: Patient is awake, confused. ASSESSMENT Worsening shortness of breath, possibly multifactorial COPD exacerbation and acute heart failure with preserved ejection fraction Coronary artery disease status post PCI proximal LAD in 12/2019 in the setting of an abnormal stress test Dyslipidemia Chronic nicotine dependence, currently smokes 2PPD History of alcohol abuse PLAN BP improved, start metoprolol tartrate 12.5mg BID Continue PO Lasix 40 mg daily Continue aspirin, statin Currently being given PRN ativan per [facility] protocol, Primary consulting psychiatry From a cardiology perspective, no further changes at this time. We will follow the patient as needed. Please reach out with any further questions or concerns. Nurse practitioner note has been reviewed by physician. Signing provider agrees with the documented findings, assessment, and plan of care. Objective - Vital Signs Vital signs: Vital Signs Temp 97.8 F 0415/22 03:26 Pulse 89 06/29/21 07:50 Resp 21 06/29/21 03:26 BP 148/91 06/29/21 03:26 Pulse Ox 92 L 06/29/21 03:26 Intake & Output 06/28/21 06/29/21 06/29/21 18:59 06:59 18:59 Intake Total 240 Output Total 700 700 Balance -460 -700 Intake: Oral 240 Output: Urine 700 700 Straight 700 Other: Voiding Method External Catheter External Catheter - Labs CBC & Chem 7: 06/27/21 08:30 06/28/21 07:42 Labs: Abnormal Lab Results - Last 24 Hours (Table) 06/28/21 06/28/21 06/28/21 Range/Units 07:42 11:17 16:24 Chloride 87 L (98-107) mmol/L Carbon Dioxide 38 H (22-30) mmol/L BUN 25 H (9-20) mg/dL POC Glucose (mg/dL) 136 H 158 H (75-99) mg/dL 06/28/21 Range/Units 20:22 Chloride (98-107) mmol/L Carbon Dioxide (22-30) mmol/L BUN (9-20) mg/dL POC Glucose (mg/dL) 113 H (75-99) mg/dL
[2021-06-29] MEDS ORDERED: HALOPERIDOL LACTATE 5 MG/ML 1 ML VIAL IVP PRN (11:07)
--- NOTE | 2021-06-29 11:07 | P.PN ---
Subjective Progress Note Date: 06/29/21 Principal diagnosis: Altered mental status, confusion, shortness of breath This is a 61-year-old white male with history of coronary artery disease, previous PCI of mid LAD done back in 2019, known history of COPD, patient is at least a [id number] smoker, history of degenerative joint disease, seizure disorder, patient presented to the ER with 2 weeks history of intermittent episodes of cough, wheezing, shortness of breath, and fatigue. Patient has been experiencing difficulty laying flat, and in spite of all of this, the patient continues to smoke on a daily basis. Workup in the ER showed relative hypoxemia, hypercapnia, and acute on chronic respiratory acidosis with metabolic compensation. His pCO2 was high as 84, and on BiPAP, ABG showed a pO2 of 56 pCO2 71 pH of 7.37 and this was on 55% FiO2 with IPAP of 12 and EPAP of 6. His bicarb was about 40. Troponin was relatively normal. Chest x-ray and CT of the chest consistent with congestive heart failure, and no evidence of pulmonary embolism, there was also some nonspecific prominence of the lymph nodes in the subcarinal area. However the size was anywhere between 10 mm up to 30 mm. At any rate patient was in moderate respiratory distress, admitted, placed on diuretics, bronchodilators, and I was asked to see him on consultation. Patient was quite short of breath, could not give me much history, however I was able to get most of the history from his at bedside. Patient had no fever, no ch ills, no hemoptysis and no chest pain. No nausea no vomiting no abdominal pain, no melena and no hematemesis. On 06/27/2021 patient seen in follow-up on selective care unit. Still remains on BiPAP with pressures of 12 and 6 and FiO2 of 35%, and his pulse ox is at 90- 91%. He is arousable, but still lethargic, he did receive a couple doses of Ativan through the night for restlessness per [facility] protocol. He is answering simple questions, he continues on Lasix 40 mg every 8 hours, he is in -1682 mL net fluid balance over the last 24 hours, still continues with a diffuse wheezing, and coughing, no phlegm production. Today's chest x-ray continues to show bilateral infiltrate and small pleural effusion with coarsened interstitium and mild cardiomegaly. Echocardiogram showed moderate concentric LVH, and EF of 55-60%. His labs have been reviewed, white blood cell count is 12.6, hemoglobin is 18.3, sodium is 139, potassium is 3.7, chloride is 91, CO2 37, BUN is 21 creatinine is 1. Procan SR level was negative, troponins were negative 3. On 06/28/2021 patient seen in follow-up on selective care unit, he is off the BiPAP support, currently on 4 L of oxygen, his pulse ox is 89-95%, breathing comfortably, he is much more awake on today's exam, doing better, he was assisted up to the recliner, tolerating activity well, he remains on Lasix 20 mg 3 tablets a day, IV Solu-Medrol, he is in -1780 mL net fluid balance over the last 24 hours, lower extremity edema is improving. Remains on nebulized bronchodilators, lung sounds reveal diminished breath sounds with some scattered crackles. He is intermittently confused, he is only oriented times to person and place. Did receive a couple doses of Ativan last night for increased restlessness and agitation. Remains on Ativan for COPD protocol. His labs have been reviewed sodium is 137, potassium is 3.5, chloride is 87, CO2 is 38, BUN is 25 creatinine is 1.05. On 06/29/2021 patient seen in follow-up on selective care unit. He is resting in bed, he is restrained by soft wrist restraints, he is confused, but appears to be in no respiratory distress. Is currently on 4 L of oxygen pulse ox is 90%, she did wear BiPAP intermittently last night, safety admin assistant is at the bedside to prevent the patient from getting up unassisted. 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 He is on [facility] protocol and receiving Ativan, and received a dose of it at midnight shift. Remains on Symbicort and DuoNeb, his IV Lasix has been transitioned to oral Lasix per cardiology, he is on GI and DVT prophylaxis, and his steroids have been converted to Medrol Dosepak. Objective - Vital Signs Vital signs: Vital Signs Temp 97.8 F 06/29/21 03:26 Pulse 89 06/29/21 07:50 Resp 21 06/29/21 03:26 BP 148/91 06/29/21 03:26 Pulse Ox 92 L 06/29/21 03:26 Intake & Output 06/28/21 06/29/21 06/29/21 18:59 06:59 18:59 Intake Total 240 Output Total 700 700 Balance -460 -700 Intake: Oral 240 Output: Urine 700 700 Straight 700 Other: Voiding Method External Catheter External Catheter - Exam GENERAL EXAM: Confused, restless, restrained with soft wrist restraints intermittently drowsy, but able to answer simple questions, 61-year-old white male on 4 L of oxygen pulse ox of 90%, comfortable in no apparent distress. safety admin assistant at the bedside HEAD: Normocephalic/atraumatic. EYES: Normal reaction of pupils, equal size. Conjunctiva pink, sclera white. NOSE: Clear with pink turbinates. THROAT: No erythema or exudates. NECK: No masses, no JVD, no thyroid enlargement, no adenopathy. CHEST: No chest wall deformity. Symmetrical expansion. LUNGS: Equal air entry with mild bibasilar crackles CVS: Regular rate and rhythm, normal S1 and S2, no gallops, no murmurs, no rubs ABDOMEN: Soft, nontender. No hepatosplenomegaly, normal bowel sounds, no guarding or rigidity. EXTREMITIES: No clubbing, no edema, no cyanosis, 2+ pulses and upper and lower extremities. MUSCULOSKELETAL: Muscle strength and tone normal. SPINE: No scoliosis or deformity SKIN: No rashes CENTRAL NERVOUS SYSTEM: lethargic but arousable, restless. No focal deficits, tone is normal in all 4 extremities. - Labs CBC & Chem 7: 06/27/21 08:30 06/28/21 07:42 Labs: Abnormal Lab Results - Last 24 Hours (Table) 06/28/21 06/28/21 06/28/21 Range/Units 11:17 16:24 20:22 POC Glucose (mg/dL) 136 H 158 H 113 H (75-99) mg/dL Assessment and Plan Plan: Assessment: #1. Acute exacerbation of diastolic CHF #2. Acute exacerbation of COPD #3. Acute on chronic hypoxic and hypercapnic respiratory failure related to the above #4. [id number] smoking history #5. History of coronary artery disease previous PCI and stenting #6. History of alcohol abuse, chronic and ongoing #7. Obstructive sleep apnea, not on CPAP, awaiting outpatient sleep study #8. Depression Plan: Continue breathing treatments Continue Medrol Dosepak Continue diuretics per cardiology Maintain safety precautions [facility] protocol pt sitter Maintain aspiration precautions GI and DVT prophylaxis I have personally seen and examined the patient, performed the documentation and the assessment and plan as written. Number of minutes spent on the visit: [10] Time with Patient: Less than 30
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
[2021-06-29 11:29] LABS: Calcium 9.5 mg/dL (8.4-10.2); Potassium 3.5 mmol/L (3.5-5.1)
[2021-06-29 11:32] LABS: Glucose,Whole Blood 102 mg/dL (75-99)
[2021-06-29 13:03] LABS: Glucose,Whole Blood 112 mg/dL (75-99)
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
[2021-06-29] MEDS: flUPHENAZine 2.5 MG/ML (MDV) 10 ML VIAL IM PRN ×2 (14:36→23:09)
[2021-06-29 16:37] LABS: Glucose,Whole Blood 112 mg/dL (75-99)
[2021-06-29 20:41] LABS: Glucose,Whole Blood 138 mg/dL (75-99)
[2021-06-29] MEDS: ATORVASTATIN 40 MG TAB PO SCH (20:55)
[2021-06-29] MEDS: ESCITALOPRAM 20 MG TAB PO SCH (20:55)
[2021-06-29] MEDS: OLANZapine 10 MG TAB PO SCH (20:55)
--- NOTE | 2021-06-29 22:21 | P.PN ---
Subjective Progress Note Date: 06/29/21 He was again confused and agitated overnight, pulling at BIPAP and requiring haldol and soft restraints. His BP is stable and he tolerated NC at 4 LPM today. Objective - Vital Signs Vital signs: Vital Signs Temp 98.1 F 06/29/21 20:00 Pulse 95 06/29/21 20:00 Resp 18 06/29/21 20:00 BP 159/92 06/29/21 20:00 Pulse Ox 96 06/29/21 20:00 Intake & Output 06/29/21 06/29/21 06/30/21 06:59 18:59 06:59 Intake Total 360 Output Total 700 1000 Balance -700 -640 Intake: Oral 360 Output: Urine 700 1000 Straight 700 Other: Voiding Method External Catheter External Catheter - Exam Gen: well developed male in no acute distress HEENT: on BIPAP CV: RRR, no murmur Lungs: No rhonchi, rales. Minimal wheezing Neuro: Alert. Oriented x3, intermittently confused and agitated - Labs CBC & Chem 7: 06/27/21 08:30 06/29/21 10:40 Labs: Abnormal Lab Results - Last 24 Hours (Table) 06/29/21 06/29/21 06/29/21 Range/Units 10:40 11:31 13:01 Sodium 136 L (137-145) mmol/L Chloride 90 L (98-107) mmol/L Carbon Dioxide 40 H (22-30) mmol/L BUN 28 H (9-20) mg/dL POC Glucose (mg/dL) 102 H 112 H (75-99) mg/dL 06/29/21 06/29/21 Range/Units 16:34 20:35 Sodium (137-145) mmol/L Chloride (98-107) mmol/L Carbon Dioxide (22-30) mmol/L BUN (9-20) mg/dL POC Glucose (mg/dL) 112 H 138 H (75-99) mg/dL Assessment and Plan Plan: Continue with BIPAP, Pulmonlogy following. Antipsychotic adjusted per psychiatry. Continue with CIWA, start librium. Encourage frequent redirection
[2021-06-30 02:11] LABS: Glucose,Whole Blood 107 mg/dL (75-99)
[2021-06-30 06:23] LABS: Glucose,Whole Blood 106 mg/dL (75-99)
[2021-06-30] MEDS: INSULIN ASPART (NovoLOG) 100 UNIT/ML VIAL SQ SCH ×4 (06:23→22:20)
[2021-06-30] MEDS: SYMBICORT 160-4.5 MCG INHALER INHALATION SCH ×2 (08:22→20:51)
[2021-06-30] MEDS: IPRATROPIUM-ALBUTEROL 3 ML NEB INHALATION SCH ×4 (08:22→20:51)
[2021-06-30] MEDS: flUPHENAZine 2.5 MG/ML (MDV) 10 ML VIAL IM PRN (09:08)
[2021-06-30] MEDS: ENOXAPARIN 40 MG/0.4 ML SYRINGE SQ SCH (09:08)
[2021-06-30] MEDS: NICOTINE 21MG/24HR PATCH TRANSDERM SCH (09:08)
[2021-06-30] MEDS: MULTIVITAMINS, THERA 1 EACH TAB PO SCH (09:12)
[2021-06-30] MEDS: lamoTRIgine 100 MG TAB PO SCH ×2 (09:12→22:28)
[2021-06-30] MEDS: FUROSEMIDE 40 MG TAB PO SCH (09:12)
[2021-06-30] MEDS: METOPROLOL TARTRATE 12.5 MG TAB PO SCH ×2 (09:12→22:28)
[2021-06-30] MEDS: methylPREDNISolone 4 MG TAB TAPER PO SCH (09:13)
[2021-06-30] MEDS: PANTOPRAZOLE 40 MG TABLET PO SCH (09:15)
[2021-06-30] MEDS: THIAMINE 100 MG TAB PO SCH ×2 (09:15→16:56)
[2021-06-30] MEDS: ISOSORBIDE MONONITRATE ER 30 MG TAB.ER.24H PO SCH (09:15)
[2021-06-30] MEDS: ASPIRIN 81 MG PO SCH (09:15)
[2021-06-30] MEDS: LEVOTHYROXINE 25 MCG TAB PO SCH (09:15)
--- NOTE | 2021-06-30 10:18 | P.PN ---
Subjective Progress Note Date: 06/30/21 The patient is seen at bedside and per nurse he was sleeping in the morning and is on BiPAP. No seizure-like activity noted. It seems that his notified yesterday's AM nurse that patient last drink was about 9 days that nurse notified me. CT and EEG could not be performed yesterday because of his cooperation per his nurse and forestry aid technician. I attempted to contact the patient's via phone but no response. Objective - Vital Signs Vital signs: Vital Signs Temp 97.9 F 06/30/21 03:47 Pulse 76 06/30/21 08:34 Resp 20 06/30/21 03:47 BP 144/82 06/30/21 03:47 Pulse Ox 95 06/30/21 03:47 Intake & Output 06/29/21 06/30/21 06/30/21 18:59 06:59 18:59 Intake Total 360 10 0 Output Total 1000 650 Balance -640 -640 0 Intake: IV 10 Invasive Line 2 10 Oral 360 0 Output: Urine 1000 650 Other: Voiding Method External Catheter Indwelling Catheter - Exam GENERAL: The patient is lying in bed and does not seem in acute distress. HENT: Supple neck. No nuchal rigidity. NEUROLOGICAL: Higher mental function: The patient is drowsy but is minimally awakeable to voice. Was stating "leave me a lone". Is not following commands. Cranial nerves: The pupils are round, equal, seems 2mm. No facial weakness. Re st of cranial nerves is hard to assess because of his condition. Motor: Gait is deferred. The strength is hard to assess individual muscles because of his condition but lifting all extremities above gravity. Normal tone and bulk. Cerebellum: Unable to assess. Sensation: Unable to assess. WORK-UP: Calcium 9.5 Ammonia <9 Serum Vitamin B12: 513 Folate: 17.80 TSH: 3.79 AST of 27 and ALT of 24. Urinalysis is negative for urinary tract infection Solorio virus PCR was not detected ABG pCO2 was 71, pH of 7.37, pO2 was 56, bicarb is 41. - Labs CBC & Chem 7: 06/27/21 08:30 06/29/21 10:40 Labs: Abnormal Lab Results - Last 24 Hours (Table) 06/29/21 06/29/21 06/29/21 Range/Units 10:40 11:31 13:01 Sodium 136 L (137-145) mmol/L Chloride 90 L (98-107) mmol/L Carbon Dioxide 40 H (22-30) mmol/L BUN 28 H (9-20) mg/dL POC Glucose (mg/dL) 102 H 112 H (75-99) mg/dL 06/29/21 06/29/21 06/30/21 Range/Units 16:34 20:35 01:59 Sodium (137-145) mmol/L Chloride (98-107) mmol/L Carbon Dioxide (22-30) mmol/L BUN (9-20) mg/dL POC Glucose (mg/dL) 112 H 138 H 107 H (75-99) mg/dL 06/30/21 Range/Units 05:58 Sodium (137-145) mmol/L Chloride (98-107) mmol/L Carbon Dioxide (22-30) mmol/L BUN (9-20) mg/dL POC Glucose (mg/dL) 106 H (75-99) mg/dL Assessment and Plan Assessment: Hypoxic and hypercapnic encephalopathy and due to medication use (steroid use). Delirium due to reported hypoxic respiratory failure, steroid use and possibly alcohol withdrawal Also patient has component of acute on chronic hypoxic and hypercapnic respiratory failure, exacerbation of COPD Acute on chronic hypoxic and hypercapnic respiratory failure Acute exacerbation of COPD Acute exacerbation of diastolic congestive heart failure Chronic ongoing alcohol use Chronic tobacco use Plan: Pending routine EEG (likely to be completed this Friday). I will not start the patient on antiepileptic drug unless there is epileptiform discharges or seizure on the EEG. Pending CT head to completed. Patient is on Lamictal 300 mg every morning and 200 mg daily at bedtime I presume this is used for his moods but also has antiepileptic effect as well. Currently the patient is on thiamine 100 mg 1 tablet twice a day Patient is on Ativan for CIWA protocol and defer management to his primary team. Psychiatry is on board. Patient is on Zyprexa 25mg qhs and Prolixin 5mg IM Q6H PRN. Pulmonary team is on board. We'll defer the rest of the medical management to the primary team The plan is discussed with the patient's nurse. Porfirio Lugo M.D. Neuro-Hospitalist Time with Patient: Less than 30
[2021-06-30 11:45] LABS: Glucose,Whole Blood 135 mg/dL (75-99)
--- NOTE | 2021-06-30 11:56 | P.PN ---
Subjective Progress Note Date: 06/30/21 This is a 61-year-old white male with history of coronary artery disease, previous PCI of mid LAD done back in 2019, known history of COPD, patient is at least a [id number] smoker, history of degenerative joint disease, seizure disorder, patient presented to the ER with 2 weeks history of intermittent e pisodes of cough, wheezing, shortness of breath, and fatigue. Patient has been experiencing difficulty laying flat, and in spite of all of this, the patient continues to smoke on a daily basis. Workup in the ER showed relative hypoxemia, hypercapnia, and acute on chronic respiratory acidosis with metabolic compensation. His pCO2 was high as 84, and on BiPAP, ABG showed a pO2 of 56 pCO2 71 pH of 7.37 and this was on 55% FiO2 with IPAP of 12 and EPAP of 6. His bicarb was about 40. Troponin was relatively normal. Chest x-ray and CT of the chest consistent with congestive heart failure, and no evidence of pulmonary embolism, there was also some nonspecific prominence of the lymph nodes in the subcarinal area. However the size was anywhere between 10 mm up to 30 mm. At any rate patient was in moderate respiratory distress, admitted, placed on diuretics, bronchodilators, and I was asked to see him on consultation. Patient was quite short of breath, could not give me much history, however I was able to get most of the history from his at bedside. Patient had no fever, no chil ls, no hemoptysis and no chest pain. No nausea no vomiting no abdominal pain, no melena and no hematemesis. On 06/27/2021 patient seen in follow-up on selective care unit. Still remains on BiPAP with pressures of 12 and 6 and FiO2 of 35%, and his pulse ox is at 90- 91%. He is arousable, but still lethargic, he did receive a couple doses of Ativan through the night for restlessness per CIWA protocol. He is answering simple questions, he continues on Lasix 40 mg every 8 hours, he is in -1682 mL net fluid balance over the last 24 hours, still continues with a diffuse wheezing, and coughing, no phlegm production. Today's chest x-ray continues to show bilateral infiltrate and small pleural effusion with coarsened interstitium and mild cardiomegaly. Echocardiogram showed moderate concentric LVH, and EF of 55-60%. His labs have been reviewed, white blood cell count is 12.6, hemoglobin is 18.3, sodium is 139, potassium is 3.7, chloride is 91, CO2 37, BUN is 21 creatinine is 1. Procan SR level was negative, troponins were negative 3. On 06/28/2021 patient seen in follow-up on selective care unit, he is off the BiPAP support, currently on 4 L of oxygen, his pulse ox is 89-95%, breathing comfortably, he is much more awake on today's exam, doing better, he was assisted up to the recliner, tolerating activity well, he remains on Lasix 20 mg 3 tablets a day, IV Solu-Medrol, he is in -1780 mL net fluid balance over the last 24 hours, lower extremity edema is improving. Remains on nebulized bronchodilators, lung sounds reveal diminished breath sounds with some scattered crackles. He is intermittently confused, he is only oriented times to person and place. Did receive a couple doses of Ativan last night for increased restlessness and agitation. Remains on Ativan for COPD protocol. His labs have been reviewed sodium is 137, potassium is 3.5, chloride is 87, CO2 is 38, BUN is 25 creatinine is 1.05. On 06/29/2021 patient seen in follow-up on selective care unit. He is resting in bed, he is restrained by soft wrist restraints, he is confused, but appears to be in no respiratory distress. Is currently on 4 L of oxygen pulse ox is 90%, she did wear BiPAP intermittently last night, health and safety consultant is at the bedside to prevent the patient from getting up unassisted. Reportedly patient had been agitated and aggressive during the hourly shift. He is on CIWA protocol and receiving Ativan, and received a dose of it at midnight shift. Remains on Symbicort and DuoNeb, his IV Lasix has been transitioned to oral Lasix per cardiology, he is on GI and DVT prophylaxis, and his steroids have been converted to Medrol Dosepak. The patient is seen today 07/30/2021 in follow-up on the selective care unit. He is currently resting comfortably in bed. Sleepy but arousable. Confused and angry at times. physician obstetrician remains at the bedside. He is currently on AVAPS with tidal volume of 400, respiratory rate of 20, EPAP of 6 with a high temperature 1.0 seconds. FiO2 is 40%. Minimum pressure of 10 and a maximum of 20. Oxygen saturations in the 90s. His been afebrile. Hemodynamically stable. The patient had pulled his mask off and only on 5 L nasal cannula his O2 saturation was 82%. Blood glucose 135. He is continued on CIWA protocol. Continue on Symbicort and DuoNeb inhalations, Medrol Dosepak. NicoDerm patch in place. Objective - Vital Signs Vital signs: Vital Signs Temp 98.0 F 06/30/21 08:00 Pulse 80 06/30/21 11:45 Resp 24 06/30/21 08:00 BP 142/83 06/30/21 08:00 Pulse Ox 94 L 06/30/21 08:00 Intake & Output 06/29/21 06/30/21 06/30/21 18:59 06:59 18:59 Intake Total 360 10 0 Output Total 1000 650 350 Balance -640 -640 -350 Intake: IV 10 Invasive Line 2 10 Oral 360 0 Output: Urine 1000 650 350 Other: Voiding Method External Catheter Indwelling Catheter Indwelling Catheter - Exam GENERAL EXAM: Sleepy, arousable, 61-year-old male patient, AVAPS with FiO2 45%, comfortable in no apparent distress. HEAD: Normocephalic. EYES: Normal reaction of pupils, equal size. NOSE: Clear with pink turbinates. THROAT: No erythema or exudates. NECK: No masses, no JVD. CHEST: No chest wall deformity. LUNGS: Equal air entry with faint crackles in the posterior bases CVS: S1 and S2 normal with no audible murmur, regular rhythm. ABDOMEN: No hepatosplenomegaly, normal bowel sounds, no guarding or rigidity. SPINE: No scoliosis or deformity SKIN: No rashes CENTRAL NERVOUS SYSTEM: No focal deficits, tone is normal in all 4 extremities. EXTREMITIES: There is no peripheral edema. No clubbing, no cyanosis. Peripheral pulses are intact. - Labs CBC & Chem 7: 06/27/21 08:30 06/29/21 10:40 Labs: Abnormal Lab Results - Last 24 Hours (Table) 06/29/21 06/29/21 06/29/21 Range/Units 13:01 16:34 20:35 POC Glucose (mg/dL) 112 H 112 H 138 H (75-99) mg/dL 06/30/21 06/30/21 06/30/21 Range/Units 01:59 05:58 11:43 POC Glucose (mg/dL) 107 H 106 H 135 H (75-99) mg/dL Assessment and Plan Assessment: 1 Acute exacerbation of diastolic CHF 2 Acute exacerbation of COPD 3 Acute on chronic hypoxic and hypercapnic respiratory failure related to the above 4 [id number] smoking history 5 History of coronary artery disease previous PCI and stenting 6 History of alcohol abuse, chronic and ongoing 7 Obstructive sleep apnea, not on CPAP, awaiting outpatient sleep study 8 Depression Plan: The patient was seen and evaluated Comfortable on AVAPS, FiO2 45% Continue current treatment plan physician obstetrician at the bedside We will continue to follow I have personally seen and examined the patient, performed the documentation and the assessment and plan as written. Number of minutes spent on the visit: 10.
--- NOTE | 2021-06-30 13:04 | P.PN ---
Progress Note - Text Interval History: Patient was seen in his room in bed sleeping. Per request from staff, science writer did not wake patient up. History was obtained by chart and with conversation from staff. Per staff, patient has been sleeping most of the day. When he woke up earlier in the morning, he was very agitated. He received Ativan 1 mg at 8:10 AM yesterday and Prolixin 5 mg at 9:08 AM this morning. MENTAL STATUS EXAM: General Appearance: Patient appears to be overweight. Patient appears to have poor hygiene and grooming wearing hospital gown. Sleeping in bed Behavior: unable to assess - pt sleeping Speech: unable to assess - pt sleeping Mood/Affect: unable to assess - pt sleeping Suicidality/Homicidality: unable to assess - pt sleeping Perceptions: unable to assess - pt sleeping Though content/process: unable to assess - pt sleeping Memory and concentration: unable to assess - pt sleeping Judgment and insight: unable to assess - pt sleeping IMPRESSIONS: Delirium, unknown etiology (likely etoh withdrawal vs. steroid induced) history of etoh abuse PLAN: -At this time patient DOES NOT meet criteria for inpatient psychiatric admission. -Delirium precautions recommended with patient including - avoiding use of narcotics and LEDGER CLERK sedatives, limit anticholinergic medications when possible, frequent re-orientation, minimize use of restraints, open window shades during the day and close them at night -Continue zyprexa to 25 mg qhs for insomnia/psychosis, Prolixin 5 mg q6hr prn for agitation, Please attempt to treat agitation with antipsychotic rather than ativan, continue librium 20 mg tid for etoh withdrawal (will taper tomorrow). lamictal and lexapro continue as perscribed. Please attempt to titrate down/off of steroids as this is most likely worsening his confusion/delirium. -CIWA protocol with PRN Ativan for alcohol withdrawal. Continue to monitor vital signs. Please attempt to limit the amount of ativan he receives as this may be causing the delirium to get worse -Continue 1:1 sitter for safety -Communicated plan to patient's nurse -Will continue to follow along -Please contact with any questions. []
[2021-06-30 16:29] LABS: Glucose,Whole Blood 125 mg/dL (75-99)
--- NOTE | 2021-06-30 19:28 | P.PN ---
Subjective Progress Note Date: 06/30/21 Principal diagnosis: Acute exacerbation diastolic CHF Acute exacerbation COPD Acute on chronic hypoxic/hypercapnic respiratory failure 61-year-old white male with history of coronary artery disease, previous PCI of mid LAD done back in 2019, known history of COPD, patient is at least a [id number] smoker, history of degenerative joint disease, seizure disorder, patient presented to the ER with 2 weeks history of intermittent episodes of cough, wheezing, shortness of breath, and fatigue. Patient has been experiencing difficulty laying flat, and in spite of all of this, the patient continues to smoke on a daily basis. Workup in the ER showed relative hypoxemia, hypercapnia, and acute on chronic respiratory acidosis with metabolic compensation. His pCO2 was high as 84, and on BiPAP, ABG showed a pO2 of 56 pCO2 71 pH of 7.37 and this was on 55% FiO2 with IPAP of 12 and EPAP of 6. His bicarb was about 40. Troponin was relatively normal. Chest x-ray and CT of the chest consistent with congestive heart failure, and no evidence of pulmonary embolism, there was also some nonspecific prominence of the lymph nodes in the subcarinal area. However the size was anywhere between 10 mm up to 30 mm. 06/30/2021 Patient is seen and evaluated in follow-up on the selective care unit. He is currently resting comfortably in bed; sleepy but arousable; remains confused and angry at times. nurse sitter remains at the bedside. He is currently on AVAPS; FiO2 is 40%. Vital signs are reviewed and reveal temperature of 98.0, pulse 80, respiration 24 and blood pressure of 142/83 He is continued on CIWA protocol. Continue on Symbicort and DuoNeb inhalations, Medrol Dosepak. NicoDerm patch in place. Objective - Vital Signs Vital signs: Vital Signs Temp 97.0 F L 06/30/21 12:00 Pulse 77 06/30/21 12:00 Resp 22 06/30/21 12:00 BP 117/72 06/30/21 12:00 Pulse Ox 97 06/30/21 12:00 Intake & Output 06/29/21 06/30/21 06/30/21 18:59 06:59 18:59 Intake Total 360 10 0 Output Total 1000 650 350 Balance -640 -640 -350 Intake: IV 10 Invasive Line 2 10 Oral 360 0 Output: Urine 1000 650 350 Other: Voiding Method External Catheter Indwelling Catheter Indwelling Catheter - Exam HEAD: Normocephalic. NECK: No masses, no JVD. CHEST: No chest wall deformity. LUNGS: Equal air entry with faint crackles in the posterior bases CVS: S1 and S2 normal with no audible murmur, regular rhythm. ABDOMEN: No hepatosplenomegaly, normal bowel sounds, no guarding or rigidity. SKIN: No rashes CENTRAL NERVOUS SYSTEM: No focal deficits, tone is normal in all 4 extremities. EXTREMITIES: There is no peripheral edema. No clubbing, no cyanosis. Peripheral pulses are intact. - Labs CBC & Chem 7: 06/27/21 08:30 06/29/21 10:40 Labs: Abnormal Lab Results - Last 24 Hours (Table) 06/29/21 06/29/21 06/30/21 Range/Units 16:34 20:35 01:59 POC Glucose (mg/dL) 112 H 138 H 107 H (75-99) mg/dL 06/30/21 06/30/21 Range/Units 05:58 11:43 POC Glucose (mg/dL) 106 H 135 H (75-99) mg/dL Assessment and Plan Assessment: 1. Acute on chronic hypoxic/hypercapnic respiratory failure; multifactorial - Related to acute exacerbation diastolic CHF/acute exacerbation COPD --Comfortable on AVAPS, FiO2 45% 2. Acute exacerbation diastolic CHF; patient is transitioned to Lasix 40 mg daily 3. Acute exacerbation COPD; DuoNeb nebulizer treatments 4 times a day and when necessary; patient remains on Medrol dosepak and Symbicort 4. History of coronary artery disease; patient has previous history of PCI and stenting 5. Alcohol abuse/tobacco abuse; CIWA protocol in place with Ativan; patient is currently on NicoDerm patch 6. Obstructive sleep apnea; patient awaits outpatient sleep study 7. Hyperlipidemia; Lipitor 40 mg by mouth daily at bedtime DVT prophylaxis SCDs/subcu Lovenox CODE STATUS; full code
[2021-06-30 20:40] LABS: Glucose,Whole Blood 110 mg/dL (75-99)
[2021-06-30] MEDS: ATORVASTATIN 40 MG TAB PO SCH (22:29)
[2021-06-30] MEDS: ESCITALOPRAM 20 MG TAB PO SCH (22:29)
[2021-06-30] MEDS: OLANZapine 10 MG TAB PO SCH (22:29)
[2021-07-01] MEDS: flUPHENAZine 2.5 MG/ML (MDV) 10 ML VIAL IM PRN (03:25)
[2021-07-01] MEDS: INSULIN ASPART (NovoLOG) 100 UNIT/ML VIAL SQ SCH ×4 (06:18→20:35)
[2021-07-01 06:33] LABS: Glucose,Whole Blood 94 mg/dL (75-99)
[2021-07-01] MEDS: IPRATROPIUM-ALBUTEROL 3 ML NEB INHALATION SCH ×4 (07:32→19:16)
[2021-07-01] MEDS: SYMBICORT 160-4.5 MCG INHALER INHALATION SCH ×2 (07:32→19:16)
[2021-07-01] MEDS: MULTIVITAMINS, THERA 1 EACH TAB PO SCH (09:16)
[2021-07-01] MEDS: LEVOTHYROXINE 25 MCG TAB PO SCH (09:16)
[2021-07-01] MEDS: ISOSORBIDE MONONITRATE ER 30 MG TAB.ER.24H PO SCH (09:16)
[2021-07-01] MEDS: METOPROLOL TARTRATE 12.5 MG TAB PO SCH ×2 (09:16→21:22)
[2021-07-01] MEDS: ASPIRIN 81 MG PO SCH (09:16)
[2021-07-01] MEDS: THIAMINE 100 MG TAB PO SCH ×2 (09:16→16:55)
[2021-07-01] MEDS: PANTOPRAZOLE 40 MG TABLET PO SCH (09:16)
[2021-07-01] MEDS: FUROSEMIDE 40 MG TAB PO SCH (09:16)
[2021-07-01] MEDS: NICOTINE 21MG/24HR PATCH TRANSDERM SCH (09:16)
[2021-07-01] MEDS: methylPREDNISolone 4 MG TAB TAPER PO SCH (09:16)
[2021-07-01] MEDS: lamoTRIgine 100 MG TAB PO SCH ×2 (09:16→21:22)
[2021-07-01] MEDS: ENOXAPARIN 40 MG/0.4 ML SYRINGE SQ SCH (09:16)
[2021-07-01 09:43] LABS: African American GFR (CKD) >90 (>60 ml/min/1.73 sqM); Blood Urea Nitrogen 30 mg/dL (9-20); Calcium 9.7 mg/dL (8.4-10.2); Chloride 89 mmol/L (98-107); Glucose 105 mg/dL (74-99); Non-African American GFR(CKD) 80 (>60 ml/min/1.73 sqM); Potassium 3.3 mmol/L (3.5-5.1); Sodium 138 mmol/L (137-145)
[2021-07-01 09:50] LABS: Anion Gap 10 mmol/L
[2021-07-01 09:51] LABS: Basophils # (A) 0.1 k/uL (0-0.2); Basophils % (A) 1 %; Eosinophils # (A) 0.2 k/uL (0-0.7); Eosinophils % (A) 2 %; HGB 18.9 gm/dL (13.0-17.5); Hypochromasia Slight; Lymphocytes # (A) 1.7 k/uL (1.0-4.8); Lymphocytes % (A) 17 %; MCH 33.4 pg (25.0-35.0); MCHC 31.1 g/dL (31.0-37.0); MCV 107.6 fL (80.0-100.0); Macrocytosis Moderate; Monocytes # (A) 0.7 k/uL (0-1.0); Monocytes % (A) 7 %; Neutrophils # (A) 7.3 k/uL (1.3-7.7); Neutrophils % (A) 72 %; Platelet Count 191 k/uL (150-450); RBC 5.65 m/uL (4.30-5.90); RDW 13.4 % (11.5-15.5); WBC 10.1 k/uL (3.8-10.6)
[2021-07-01 09:56] LABS: HCT 60.8 % (39.0-53.0)
[2021-07-01 09:57] LABS: Carbon Dioxide 39 mmol/L (22-30)
[2021-07-01 11:43] LABS: Glucose,Whole Blood 203 mg/dL (75-99)
--- NOTE | 2021-07-01 11:52 | P.PN ---
Subjective Progress Note Date: 07/01/21 Principal diagnosis: Acute on chronic hypoxic and hypercapnic respiratory failure, multifactorial. This is a 61-year-old white male with history of coronary artery disease, previous PCI of mid LAD done back in 2019, known history of COPD, patient is at least a [id number] smoker, history of degenerative joint disease, seizure disorder, patient presented to the ER with 2 weeks history of intermittent episodes of cough, wheezing, shortness of breath, and fatigue. Patient has been experiencing difficulty laying flat, and in spite of all of this, the patient continues to smoke on a daily basis. Workup in the ER showed relative hypoxemia, hypercapnia, and acute on chronic respiratory acidosis with metabolic compensation. His pCO2 was high as 84, and on BiPAP, ABG showed a pO2 of 56 pCO2 71 pH of 7.37 and this was on 55% FiO2 with IPAP of 12 and EPAP of 6. His bicarb was about 40. Troponin was relatively normal. Chest x-ray and CT of the chest consistent with congestive heart failure, and no evidence of pulmonary embolism, there was also some nonspecific prominence of the lymph nodes in the subcarinal area. However the size was anywhere between 10 mm up to 30 mm. At any rate patient was in moderate respiratory distress, admitted, placed on diuretics, bronchodilators, and I was asked to see him on consultation. Patient was quite short of breath, could not give me much history, however I was able to get most of the history from his at bedside. Patient had no fever, no chills, no hemoptysis and no chest pain. No nausea no vomiting no abdominal pa in, no melena and no hematemesis. On 06/27/2021 patient seen in follow-up on selective care unit. Still remains on BiPAP with pressures of 12 and 6 and FiO2 of 35%, and his pulse ox is at 90- 91%. He is arousable, but still lethargic, he did receive a couple doses of Ativan through the night for restlessness per CIWA protocol. He is answering simple questions, he continues on Lasix 40 mg every 8 hours, he is in -1682 mL net fluid balance over the last 24 hours, still continues with a diffuse wheezing, and coughing, no phlegm production. Today's chest x-ray continues to show bilateral infiltrate and small pleural effusion with coarsened interstitium and mild cardiomegaly. Echocardiogram showed moderate concentric LVH, and EF of 55-60%. His labs have been reviewed, white blood cell count is 12.6, hemoglobin is 18.3, sodium is 139, potassium is 3.7, chloride is 91, CO2 37, BUN is 21 c reatinine is 1. Procan SR level was negative, troponins were negative 3. On 06/28/2021 patient seen in follow-up on selective care unit, he is off the BiPAP support, currently on 4 L of oxygen, his pulse ox is 89-95%, breathing comfortably, he is much more awake on today's exam, doing better, he was assisted up to the recliner, tolerating activity well, he remains on Lasix 20 mg 3 tablets a day, IV Solu-Medrol, he is in -1780 mL net fluid balance over the last 24 hours, lower extremity edema is improving. Remains on nebulized bronchodilators, lung sounds reveal diminished breath sounds with some scattered crackles. He is intermittently confused, he is only oriented times to person and place. Did receive a couple doses of Ativan last night for increased restlessness and agitation. Remains on Ativan for COPD protocol. His labs have been reviewed sodium is 137, potassium is 3.5, chloride is 87, CO2 is 38, BUN is 25 creatinine is 1.05. On 06/29/2021 patient seen in follow-up on [facility] care unit. He is resting in bed, he is restrained by soft wrist restraints, he is confused, but appears to be in no respiratory distress. Is currently on 4 L of oxygen pulse ox is 90%, she did wear BiPAP intermittently last night, manager environmental health and safety is at the bedside to prevent the patient from getting up unassisted. Reportedly patient had been agitated and aggressive during the shiftman. He is on CIWA protocol and receiving Ativan, and received a dose of it at midnight shift. Remains on Symbicort and DuoNeb, his IV Lasix has been transitioned to oral Lasix per cardiology, he is on GI and DVT prophylaxis, and his steroids have been converted to Medrol Dosepak. The patient is seen today 06/30/2021 in follow-up on the selective care unit. He is currently resting comfortably in bed. Sleepy but arousable. Confused and angry at times. special needs babysitter remains at the bedside. He is currently on AVAPS with tidal volume of 400, respiratory rate of 20, EPAP of 6 with a high temper ature 1.0 seconds. FiO2 is 40%. Minimum pressure of 10 and a maximum of 20. Oxygen saturations in the 90s. His been afebrile. Hemodynamically stable. The patient had pulled his mask off and only on 5 L nasal cannula his O2 saturation was 82%. Blood glucose 135. He is continued on CIWA protocol. Continue on Symbicort and DuoNeb inhalations, Medrol Dosepak. NicoDerm patch in place. Patient was reevaluated today on 06/30/2021, patient was earlier on BiPAP, however he was transitioned to 4 L nasal cannula, and he seemed to be doing fairly well on 4 L. Continues to have intermittent cough and wheezing, however clinically I believe the patient had a significant improvement in his pulmonary and cardiac status since admission because when he presented initially, the patient had profound wheezing and severe respiratory distress along with abnormal chest x-ray showing evidence of pulmonary edema. This has significantly improved, clinically the patient is improving, his mental status remains a bit of an issue as intermittently the patient is confused, today he is oriented to place, he knew that he was at [facility], he knew the year but did not know the month, it was May according to him. He couldn't recall the name of the president, but when he was given a hint that his first time is Mohinder, patient realizes it was Mohinder cook. WBC count today is 10.1 hemoglobin is 18.9, obviously the patient hypoxia and chronic polycythemia. Bicarb is 39 electrolytes are normal renal profile is relatively normal last chest x-ray from 413 showed improvement in his interstitial edema, and I'm recommending a follow- up chest x-ray to be done in a.m. Objective - Vital Signs Vital signs: Vital Signs Temp 97.9 F 07/01/21 08:00 Pulse 76 07/01/21 08:00 Resp 20 07/01/21 08:00 BP 128/84 07/01/21 08:00 Pulse Ox 98 07/01/21 08:00 Intake & Output 06/30/21 07/01/21 07/01/21 18:59 06:59 18:59 Intake Total 0 20 Output Total 1075 120 Balance -1075 -100 Intake: IV 20 Invasive Line 2 20 Oral 0 Output: Urine 1075 120 Other: Voiding Method Indwelling Catheter Indwelling Catheter Indwelling Catheter - Exam GENERAL EXAM: 61-year-old white male in no distress, on 4 L nasal cannula. HEAD: Normocephalic. EYES: Normal reaction of pupils, equal size. NOSE: Clear with pink turbinates. THROAT: No erythema or exudates. NECK: No masses, no JVD. CHEST: No chest wall deformity. LUNGS: Diminished breath sound bilaterally, wheezing on forced expiratory maneuver noted. CVS: S1 and S2 normal with no audible murmur, regular rhythm. ABDOMEN: No hepatosplenomegaly, normal bowel sounds, no guarding or rigidity. SKIN: No rashes CENTRAL NERVOUS SYSTEM: Minimal confusion, but nonetheless the patient's mental status is improved significantly. EXTREMITIES: There is no peripheral edema. No clubbing, no cyanosis. Peripheral pulses are intact. - Labs CBC & Chem 7: 07/01/21 09:20 07/01/21 09:20 Labs: Abnormal Lab Results - Last 24 Hours (Table) 06/30/21 06/30/21 06/30/21 Range/Units 11:43 16:27 20:15 Hgb (13.0-17.5) gm/dL Hct (39.0-53.0) % MCV (80.0-100.0) fL Potassium (3.5-5.1) mmol/L Chloride (98-107) mmol/L Carbon Dioxide (22-30) mmol/L BUN (9-20) mg/dL Glucose (74-99) mg/dL POC Glucose (mg/dL) 135 H 125 H 110 H (75-99) mg/dL 07/01/21 07/01/21 07/01/21 Range/Units 09:20 09:20 11:42 Hgb 18.9 H (13.0-17.5) gm/dL Hct 60.8 H* (39.0-53.0) % MCV 107.6 H (80.0-100.0) fL Potassium 3.3 L (3.5-5.1) mmol/L Chloride 89 L (98-107) mmol/L Carbon Dioxide 39 H (22-30) mmol/L BUN 30 H (9-20) mg/dL Glucose 105 H (74-99) mg/dL POC Glucose (mg/dL) 203 H (75-99) mg/dL Assessment and Plan Assessment: Impression: Acute hypoxic and hypercapnic respiratory failure secondary to acute exacerbation of COPD and acute diastolic congestive heart failure. Acute exacerbation of COPD Acute diastolic congestive heart failure Suspect underlying obstructive sleep apnea syndrome History of seizure disorder Dyslipidemia History of underlying coronary artery disease and previous PCI in 2020. Tobacco dependence syndrome History of hypothyroidism History of depression Acute mental status changes secondary to alcohol withdrawal, and acute toxic metabolic encephalopathy. Recommendation: Continue present supportive care measures. Continue diuretics. Lasix 40 mg by mouth daily. Continue bronchodilators. DuoNeb updrafts and Symbicort. Continue Medrol Dosepak. Continue GI and DVT prophylaxis. Repeat chest x-ray in a.m. Continue CIWA protocol. Continue Zyprexa. Continue Lamictal. Continue Ativan when necessary. Use BiPAP as needed. We will continue to follow. Time with Patient: Less than 30
[2021-07-01] MEDS ORDERED: Potassium Replacement Protocol 1 EACH MISC MISCELLANE PRN (12:24)
--- NOTE | 2021-07-01 13:26 | P.PN ---
Progress Note - Text Interval History: Patient states that he is doing well. He does not know the date today, but knows his name and place. Denies irritability, agitation, withdrawal symptoms, suicidal thoughts, homicidal thoughts, hallucinations, medication side effects. Per nursing staff, patient has significantly improved. He received Prolixin IM 5 mg at 325 this morning MENTAL STATUS EXAM: General Appearance: Patient appears to be overweight. Patient appears to have poor hygiene and grooming wearing hospital gown. Sitting up on chair next to the bed Behavior: Cooperative, pleasant Speech: Normal rate and rhythm Mood/Affect: Euthymic, full range Suicidality/Homicidality: Denies Perceptions: No hallucinations, not responding to internal stimuli Though content/process: Goal-directed Memory and concentration: AO 2 Judgment and insight: Improving IMPRESSIONS: Delirium, unknown etiology (likely etoh withdrawal vs. steroid induced) - significant improvement today history of etoh abuse PLAN: -At this time patient DOES NOT meet criteria for inpatient psychiatric admission. -Delirium precautions recommended with patient including - avoiding use of narcotics and PONY TRIMMER sedatives, limit anticholinergic medications when possible, frequent re-orientation, minimize use of restraints, open window shades during the day and close them at night -Continue zyprexa to 25 mg qhs for insomnia/psychosis, Prolixin 5 mg q6hr prn for agitation, Please attempt to treat agitation with antipsychotic rather than ativan, taper librium to 10 mg tid for etoh withdrawal. lamictal and lexapro continue as perscribed. Please attempt to titrate down/off of steroids as this i s most likely worsening his confusion/delirium. -CIWA protocol with PRN Ativan for alcohol withdrawal. Continue to monitor vital signs. Please attempt to limit the amount of ativan he receives as this may be causing the delirium to get worse -DC 1:1 sitter as patient has significantly improved today - if behavior worsens, will restart sitter -Communicated plan to patient's nurse -Will continue to follow along -Please contact with any questions.
--- NOTE | 2021-07-01 13:58 | P.PN ---
Subjective Progress Note Date: 07/01/21 The patient is seen at bedside and feels he is doing much better today. He denies of any focal weakness or visual disturbance. Objective - Vital Signs Vital signs: Vital Signs Temp 97.9 F 07/01/21 08:00 Pulse 76 07/01/21 08:00 Resp 20 07/01/21 08:00 BP 128/84 07/01/21 08:00 Pulse Ox 98 07/01/21 08:00 Intake & Output 06/30/21 07/01/21 07/01/21 18:59 06:59 18:59 Intake Total 0 20 540 Output Total 1075 120 900 Balance -1075 -100 -360 Intake: IV 20 Invasive Line 2 20 Oral 0 540 Output: Urine 1075 120 900 Other: Voiding Method Indwelling Catheter Indwelling Catheter Indwelling Catheter - Exam GENERAL: The patient is lying in bed and in acute distress. NEUROLOGICAL: Higher mental function: The patient is awake, alert, oriented to self, place and time. He is following simple command. No aphasia. Cranial nerves: The pupils are round, equal, reactive to light. Visual field are full to confrontation. No facial weakness. No dysarthria. Motor: Gait is deferred. The strength is moving all extremities above gravity equally. Normal tone and bulk. WORK-UP: Calcium 9.5 Ammonia <9 Serum Vitamin B12: 513 Folate: 17.80 TSH: 3.79 AST of 27 and ALT of 24. Urinalysis is negative for urinary tract infection Solorio virus PCR was not detected ABG pCO2 was 71, pH of 7.37, pO2 was 56, bicarb is 41. - Labs CBC & Chem 7: 07/01/21 09:20 07/01/21 09:20 Labs: Abnormal Lab Results - Last 24 Hours (Table) 06/30/21 06/30/21 07/01/21 Range/Units 16:27 20:15 09:20 Hgb 18.9 H (13.0-17.5) gm/dL Hct 60.8 H* (39.0-53.0) % MCV 107.6 H (80.0-100.0) fL Potassium (3.5-5.1) mmol/L Chloride (98-107) mmol/L Carbon Dioxide (22-30) mmol/L BUN (9-20) mg/dL Glucose (74-99) mg/dL POC Glucose (mg/dL) 125 H 110 H (75-99) mg/dL 07/01/21 07/01/21 Range/Units 09:20 11:42 Hgb (13.0-17.5) gm/dL Hct (39.0-53.0) % MCV (80.0-100.0) fL Potassium 3.3 L (3.5-5.1) mmol/L Chloride 89 L (98-107) mmol/L Carbon Dioxide 39 H (22-30) mmol/L BUN 30 H (9-20) mg/dL Glucose 105 H (74-99) mg/dL POC Glucose (mg/dL) 203 H (75-99) mg/dL Assessment and Plan Assessment: Hypoxic and hypercapnic encephalopathy and due to medication use (steroid use) and possibly alcohol withdrawal---improving Also patient has component of acute on chronic hypoxic and hypercapnic respi ratory failure, exacerbation of COPD Acute on chronic hypoxic and hypercapnic respiratory failure Acute exacerbation of COPD Acute exacerbation of diastolic congestive heart failure Chronic ongoing alcohol use Chronic tobacco use Plan: Pending routine EEG (likely to be completed this Friday). I will not start the patient on antiepileptic drug unless there is epileptiform discharges or seizure on the EEG. Pending CT head to completed. Patient is on Lamictal 300 mg every morning and 200 mg daily at bedtime I presume this is used for his moods but also has antiepileptic effect as well. Currently the patient is on thiamine 100 mg 1 tablet twice a day Patient is on Ativan for CIWA protocol and defer management to his primary team. Psychiatry is on board. Patient is on Zyprexa 25mg qhs and Prolixin 5mg IM Q6H PRN. Pulmonary team is on board. We'll defer the rest of the medical management to the primary team The plan is discussed with the patient's nurse. Dr. Mora will start neurology service tomorrow AM. Porfirio Lugo M.D. Neuro-Hospitalist Time with Patient: Less than 30
--- NOTE | 2021-07-01 14:44 | CT ---
EXAMINATION TYPE: CT brain wo con DATE OF EXAM: 07/01/2021 COMPARISON: 12/08/2009 HISTORY: Altered mental status. CT DLP: 1230.4 mGycm Automated exposure control for dose reduction was used. Ventricles have normal size. There is no mass effect or midline shift. There is no sign of intracrani al hemorrhage. No evidence of cerebral edema. The calvarium is intact. There is normal aeration of th e mastoid sinuses. IMPRESSION: Normal unenhanced head CT scan. No change.
[2021-07-01] MEDS: POTASSIUM CHLORIDE ER 20 MEQ TAB.ER PO SCH ×2 (16:00→16:55)
[2021-07-01 16:20] LABS: Glucose,Whole Blood 120 mg/dL (75-99)
[2021-07-01 20:08] LABS: Glucose,Whole Blood 123 mg/dL (75-99)
[2021-07-01] MEDS: ATORVASTATIN 40 MG TAB PO SCH (21:22)
[2021-07-01] MEDS: ESCITALOPRAM 20 MG TAB PO SCH (21:22)
[2021-07-01] MEDS: OLANZapine 10 MG TAB PO SCH (21:22)
[2021-07-02 04:08] VITALS: RESP 18
[2021-07-02 06:21] LABS: Glucose,Whole Blood 195 mg/dL (75-99)
[2021-07-02] MEDS: LEVOTHYROXINE 25 MCG TAB PO SCH (06:32)
[2021-07-02] MEDS: INSULIN ASPART (NovoLOG) 100 UNIT/ML VIAL SQ SCH ×2 (06:32→12:17)
[2021-07-02] MEDS: PANTOPRAZOLE 40 MG TABLET PO SCH (06:32)
[2021-07-02] MEDS: THIAMINE 100 MG TAB PO SCH (06:32)
[2021-07-02] MEDS: MULTIVITAMINS, THERA 1 EACH TAB PO SCH (09:18)
[2021-07-02] MEDS: FUROSEMIDE 40 MG TAB PO SCH (09:19)
[2021-07-02] MEDS: NICOTINE 21MG/24HR PATCH TRANSDERM SCH (09:19)
[2021-07-02] MEDS: ASPIRIN 81 MG PO SCH (09:19)
[2021-07-02] MEDS: ENOXAPARIN 40 MG/0.4 ML SYRINGE SQ SCH (09:19)
[2021-07-02] MEDS: ISOSORBIDE MONONITRATE ER 30 MG TAB.ER.24H PO SCH (09:19)
[2021-07-02] MEDS: METOPROLOL TARTRATE 12.5 MG TAB PO SCH (09:19)
[2021-07-02] MEDS: methylPREDNISolone 4 MG TAB TAPER PO SCH (09:19)
[2021-07-02] MEDS: lamoTRIgine 100 MG TAB PO SCH (09:20)
[2021-07-02] MEDS: IPRATROPIUM-ALBUTEROL 3 ML NEB INHALATION SCH ×3 (09:38→16:47)
[2021-07-02] MEDS: SYMBICORT 160-4.5 MCG INHALER INHALATION SCH (09:38)
[2021-07-02 11:26] LABS: Basophils % (A) 0 %; Eosinophils # (A) 0.2 k/uL (0-0.7); Eosinophils % (A) 2 %; HGB 18.9 gm/dL (13.0-17.5); Hypochromasia Slight; Lymphocytes # (A) 2.1 k/uL (1.0-4.8); Lymphocytes % (A) 18 %; MCH 34.8 pg (25.0-35.0); MCHC 32.6 g/dL (31.0-37.0); MCV 106.8 fL (80.0-100.0); Macrocytosis Moderate; Mean Platelet Volume 6.9; Monocytes # (A) 0.8 k/uL (0-1.0); Monocytes % (A) 7 %; Neutrophils # (A) 8.1 k/uL (1.3-7.7); Neutrophils % (A) 70 %; Platelet Count 204 k/uL (150-450); RBC 5.42 m/uL (4.30-5.90); RDW 13.9 % (11.5-15.5); WBC 11.5 k/uL (3.8-10.6)
[2021-07-02 11:34] LABS: HCT 57.9 % (39.0-53.0)
[2021-07-02 11:39] LABS: ALT 33 U/L (4-49); AST 59 U/L (17-59); African American GFR (CKD) >90 (>60 ml/min/1.73 sqM); Alkaline Phosphatase 102 U/L (38-126); Blood Urea Nitrogen 20 mg/dL (9-20); Calcium 8.9 mg/dL (8.4-10.2); Chloride 91 mmol/L (98-107); Glucose 109 mg/dL (74-99); Magnesium 2.1 mg/dL (1.6-2.3); Non-African American GFR(CKD) 82 (>60 ml/min/1.73 sqM); Potassium 3.8 mmol/L (3.5-5.1); Sodium 136 mmol/L (137-145); Total Bilirubin 0.8 mg/dL (0.2-1.3); Total Protein 6.8 g/dL (6.3-8.2)
[2021-07-02 11:40] LABS: Glucose,Whole Blood 144 mg/dL (75-99)
[2021-07-02 11:45] LABS: Anion Gap 7 mmol/L
[2021-07-02 11:46] LABS: Carbon Dioxide 38 mmol/L (22-30)
--- NOTE | 2021-07-02 12:31 | XR ---
EXAMINATION TYPE: XR chest 1V portable DATE OF EXAM: 07/02/2021 COMPARISON: Chest x-ray 06/27/2021 HISTORY: Congestive heart failure TECHNIQUE: Single frontal view of the chest is obtained. FINDINGS: Cardiac mediastinal silhouette is stable. Interstitium is mildly increased. Abnormal densi ties present at the left lung base. No evident pneumothorax. There are overlying artifacts. IMPRESSION: Basilar atelectasis versus pneumonia, correlate, there may be some persistent interstiti al edema
--- NOTE | 2021-07-02 13:10 | P.PN ---
Progress Note - Text Progress Note Date: 07/02/21 Interval History: Patient was seen today sitting in his chair watching television. Patient just finished eating his lunch and was agreeable to speak to screenplay writer in the room today. He appeared to have a congruent affect and was fairly appropriately during conversation. His attention span was improved significantly. He had a bright affect. He states that he is doing "much better" and thanked screenplay writer for helping him. He states that "I was messed up a few days ago" referring to his delirium. He states that he is feeling much clearer now. He was able to identify objects in the room. He was alert and oriented 2 however did not know today's date and believed that it was "June 06". He knows who the current president is. Fair concentration. He is denying any depression or any anxiety today. He states that he is sleeping better at nighttime. He claims that he follows up with Dr. Gillespie as his psychiatrist. He is denying any auditory or visual hallucinations today. He is denying any suicidal or homicidal ideations intent or plan. MENTAL STATUS EXAM: General Appearance: Patient appears to be overweight. Patient appears to have improving hygiene and grooming wearing hospital gown. Sitting up on chair next to the bed Behavior: Cooperative, pleasant Speech: Normal rate and rhythm Mood/Affect: Euthymic, full range Suicidality/Homicidality: Denies Perceptions: No hallucinations, not responding to internal stimuli Though content/process: Goal-directed, logical, no delusions or paranoia. Memory and concentration: AO 2, does not know what his date is. Improved concentration. Judgment and insight: Improving IMPRESSIONS: Delirium, unknown etiology (likely etoh withdrawal vs. steroid induced) - significantly improved history of etoh abuse PLAN: -At this time patient DOES NOT meet criteria for inpatient psychiatric admission. -Delirium precautions recommended with patient including - avoiding use of narcotics and PRODUCTION OPERATIONS MANAGER sedatives, limit anticholinergic medications when possible, frequent re-orientation, minimize use of restraints, open window shades during the day and close them at night -Continue zyprexa to 25 mg qhs for insomnia/psychosis, Prolixin 5 mg q6hr prn for agitation, discontinued Librium. lamictal and lexapro continue as perscribed. Please attempt to continue to titrate down/off of steroids as this is most likely on of the causes of his delirium. -Patient follows up with Dr Gillespie as his psychiatrist -At this time psychiatry will sign off. -Please contact with any questions.
--- NOTE | 2021-07-02 14:37 | P.PN ---
Subjective Progress Note Date: 07/02/21 Principal diagnosis: Shortness of breath. On 06/28/2021 patient seen in follow-up on selective care unit, he is off the BiPAP support, currently on 4 L of oxygen, his pulse ox is 89-95%, breathing comfortably, he is much more awake on today's exam, doing better, he was assisted up to the recliner, tolerating activity well, he remains on Lasix 20 mg 3 tablets a day, IV Solu-Medrol, he is in -1780 mL net fluid balance over the last 24 hours, lower extremity edema is improving. Remains on nebulized bronchodilators, lung sounds reveal diminished breath sounds with some scattered crackles. He is intermittently confused, he is only oriented times to person and place. Did receive a couple doses of Ativan last night for increased restlessness and agitation. Remains on Ativan for COPD protocol. His labs have been reviewed sodium is 137, potassium is 3.5, chloride is 87, CO2 is 38, BUN is 25 creatinine is 1.05. On 06/29/2021 patient seen in follow-up on selective care unit. He is resting in bed, he is restrained by soft wrist restraints, he is confused, but appears to be in no respiratory distress. Is currently on 4 L of oxygen pulse ox is 90%, she did wear BiPAP intermittently last night, safety specialist is at the bedside to prevent the patient from getting up unassisted. Reportedly patient had been agitated and aggressive during the shiftman. He is on CIWA protocol and receiving Ativan, and received a dose of it at midnight shift. Remains on Symbicort and DuoNeb, his IV Lasix has been transitioned to oral Lasix per cardiology, he is on GI and DVT prophylaxis, and his steroids have been converted to Medrol Dosepak. The patient is seen today 06/30/2021 in follow-up on the selective care unit. He is currently resting comfortably in bed. Sleepy but arousable. Confused and angry at times. associate relations specialist remains at the bedside. He is currently on AVAPS with tidal volume of 400, respiratory rate of 20, EPAP of 6 with a high temperature 1.0 seconds. FiO2 is 40%. Minimum pressure of 10 and a maximum of 20. Oxygen saturations in the 90s. His been afebrile. Hemodynamically stable. The patient had pulled his mask off and only on 5 L nasal cannula his O2 saturation was 82%. Blood glucose 135. He is continued on CIWA protocol. Continue on Symbicort and DuoNeb inhalations, Medrol Dosepak. NicoDerm patch in place. Patient was reevaluated today on 06/30/2021, patient was earlier on BiPAP, however he was transitioned to 4 L nasal cannula, and he seemed to be doing fairly well on 4 L. Continues to have intermittent cough and wheezing, however clinically I believe the patient had a significant improvement in his pulmonary and cardiac status since admission because when he presented initially, the patient had profound wheezing and severe respiratory distress along with abnormal chest x-ray showing evidence of pulmonary edema. This has significantly improved, clinically the patient is improving, his mental status remains a bit of an issue as intermittently the patient is confused, today he is oriented to place, he knew that he was at [facility], he knew the year but did not know the month, it was May according to him. He couldn't recall the name of the president, but when he was given a hint that his first time is Mohinder, patient realizes it was Mohinder cook. WBC count today is 10.1 hemoglobin is 18.9, obviously the patient hypoxia and chronic polycythemia. Bicarb is 39 electrolytes are normal renal profile is relatively normal last chest x-ray from 413 showed improvement in his interstitial edema, and I'm recommending a follow- up chest x-ray to be done in a.m. Progress note dated 07/02/2021. The patient was seen today in room 355. He's on 2 L nasal cannula. The patient is not on any IV fluids. The patient was admitted with a COPD exacerbation. He was also thought to have obstructive sleep apnea syndrome. Labs today include a white count 11.5, hemoglobin 18.9, hematocrit 57.9, and a platelet count of 204,000. Sodium 136, potassium 3.8, chlorides 91, CO2 38, anion gap 7, BUN 20, and creatinine 1. The rest of the comprehensive metabolic profile appears to be relatively normal. Chest x-ray shows some basilar atelectasis and/or infiltrate. There may also be some mild interstitial edema. Objective - Vital Signs Vital signs: Vital Signs Temp 97.2 F L 07/02/21 12:00 Pulse 74 07/02/21 12:58 Resp 18 07/02/21 12:58 BP 126/78 07/02/21 12:00 Pulse Ox 93 L 07/02/21 12:10 Intake & Output 07/01/21 07/02/21 07/02/21 18:59 06:59 18:59 Intake Total 540 10 378 Output Total 900 Balance -360 10 378 Intake: IV 10 Invasive Line 2 10 Oral 540 378 Output: Urine 900 Other: Voiding Method Indwelling Catheter Toilet # Voids 1 - Exam No acute distress, oriented 3. Sitting up in bed. No conversational dyspnea or use of accessory muscles. HEENT examination is grossly unremarkable. Neck supple. Full range of motion. No adenopathy thyromegaly or neck vein distention. Cardiovascular examination reveals regular rhythm rate. S1-S2 normal. No S3 or S4. No discernible murmur noted. Heart rate 74 bpm. Lungs reveal scattered bilateral rhonchi. Breath sounds equal bilaterally but diminished throughout. Slight prolongation on forced maneuver. No crackles. Minimal expiratory wheezes. 2 L saturation is 94%. Abdomen soft bowel sounds are heard. No masses or tenderness. Extremities are intact. No cyanosis clubbing or edema. Skin is without rash or lesion. Neurologic examination is brief but nonfocal. - Labs CBC & Chem 7: 07/02/21 11:02 07/02/21 11:02 Labs: Abnormal Lab Results - Last 24 Hours (Table) 07/01/21 07/01/21 07/02/21 Range/Units 16:19 20:07 06:20 WBC (3.8-10.6) k/uL Hgb (13.0-17.5) gm/dL Hct (39.0-53.0) % MCV (80.0-100.0) fL Neutrophils # (1.3-7.7) k/uL Sodium (137-145) mmol/L Chloride (98-107) mmol/L Carbon Dioxide (22-30) mmol/L Glucose (74-99) mg/dL POC Glucose (mg/dL) 120 H 123 H 195 H (75-99) mg/dL 07/02/21 07/02/21 07/02/21 Range/Units 11:02 11:02 11:34 WBC 11.5 H (3.8-10.6) k/uL Hgb 18.9 H (13.0-17.5) gm/dL Hct 57.9 H* (39.0-53.0) % MCV 106.8 H (80.0-100.0) fL Neutrophils # 8.1 H (1.3-7.7) k/uL Sodium 136 L (137-145) mmol/L Chloride 91 L (98-107) mmol/L Carbon Dioxide 38 H (22-30) mmol/L Glucose 109 H (74-99) mg/dL POC Glucose (mg/dL) 144 H (75-99) mg/dL Assessment and Plan Assessment: Acute hypoxemic and hypercapnic respiratory failure secondary to severe COPD exacerbation, and also acute diastolic CHF. Diastolic CHF. Chronic obstructive pulmonary disease. Probable obstructive sleep apnea syndrome. History of seizure disorder. Hyperlipidemia. History of CAD with previous percutaneous coronary intervention, 2019. Tobacco dependence syndrome. History of hypothyroidism. His recent depression. Mental status changes, improved, secondary to alcohol withdrawal and metabolic encephalopathy. Plan: Plan dated 07/03/2019. The patient seemed be doing much better. His saturations are excellent on 2 L. The patient will need an outpatient sleep study. He will need to be assessed for home O2. He likely will need a. May need of both at rest and on exertion. Clinically, the patient's much improved. Labs, x-rays, and medications are all reviewed. The patient will continue on GI and DVT prophylaxis. We'll continue to follow. Additional recommendations and suggestions are forthcoming. Time with Patient: Less than 30
[2021-07-02 16:53] LABS: Glucose,Whole Blood 254 mg/dL (75-99)
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
[2021-07-02 20:22] VITALS: BP 128/79; PULSE 84; TEMP 98.2
--- NOTE | 2021-07-03 10:05 | P.PN ---
Subjective Progress Note Date: 07/02/21 Patient is a 61-year-old male with altered mental status due to hypoxic/hypercapnic and alcohol use. Patient's mentation is improving. Patient is sitting in the recliner, using nebulizer treatment. Offers no complaints. Patient admits to drinking 1 pint of gin been for last 1-1/2 years. He spelled to quit all tobacco and alcohol use. Denies any neurological symptoms. Objective - Vital Signs Vital signs: Vital Signs Temp 97.2 F L 07/02/21 12:00 Pulse 74 07/02/21 12:58 Resp 18 07/02/21 12:58 BP 126/78 07/02/21 12:00 Pulse Ox 93 L 07/02/21 12:10 Intake & Output 07/01/21 07/02/21 07/02/21 18:59 06:59 18:59 Intake Total 540 10 378 Output Total 900 Balance -360 10 378 Intake: IV 10 Invasive Line 2 10 Oral 540 378 Output: Urine 900 Other: Voiding Method Indwelling Catheter Toilet # Voids 1 - Exam Patient's mental status, speech and language functions are normal. Cranial nerves are normal. Visual ruano full, face is symmetric and tongue protrudes the midline. Muscle strength is normal. No ataxia. Tone and bulk of muscles normal. - Labs CBC & Chem 7: 07/02/21 11:02 07/02/21 11:02 Labs: Abnormal Lab Results - Last 24 Hours (Table) 07/01/21 07/01/21 07/02/21 Range/Units 16:19 20:07 06:20 WBC (3.8-10.6) k/uL Hgb (13.0-17.5) gm/dL Hct (39.0-53.0) % MCV (80.0-100.0) fL Neutrophils # (1.3-7.7) k/uL Sodium (137-145) mmol/L Chloride (98-107) mmol/L Carbon Dioxide (22-30) mmol/L Glucose (74-99) mg/dL POC Glucose (mg/dL) 120 H 123 H 195 H (75-99) mg/dL 07/02/21 07/02/21 07/02/21 Range/Units 11:02 11:02 11:34 WBC 11.5 H (3.8-10.6) k/uL Hgb 18.9 H (13.0-17.5) gm/dL Hct 57.9 H* (39.0-53.0) % MCV 106.8 H (80.0-100.0) fL Neutrophils # 8.1 H (1.3-7.7) k/uL Sodium 136 L (137-145) mmol/L Chloride 91 L (98-107) mmol/L Carbon Dioxide 38 H (22-30) mmol/L Glucose 109 H (74-99) mg/dL POC Glucose (mg/dL) 144 H (75-99) mg/dL Assessment and Plan Assessment: Hypoxic and hypercapnic encephalopathy and due to medication use (steroid use) and possibly alcohol withdrawal---improving Also patient has component of acute on chronic hypoxic and hypercapnic respiratory failure, exacerbation of COPD Acute on chronic hypoxic and hypercapnic respiratory failure Acute exacerbation of COPD Acute exacerbation of diastolic congestive heart failure Chronic ongoing alcohol use Chronic tobacco use Plan: EEG was performed today, which revealed mild background slowing, consistent with encephalopathy. No epileptiform activity was seen. No indication for antiepileptic drug at this time, as the EEG did not reveal any epileptiform activity. Repeat computed tomography scan head is normal. No change. I personally reviewed CT head and agree with the findings. Patient is on Lamictal 300 mg every morning and 200 mg daily at bedtime I presume this is used for his moods but also has antiepileptic effect as well. Currently the patient is on thiamine 100 mg 1 tablet twice a day Patient is on Ativan for CIWA protocol and defer management to his primary team. Psychiatry is on board. Patient is on Zyprexa 25mg qhs and Prolixin 5mg IM Q6H PRN. Pulmonary team is on board. We'll defer the rest of the medical management to the primary team Neurologically clear.
== END 2021-07-02 19:46 | disposition home or self-care (01) | DRG 291 ==
LOC: EC 11:47 → 3SCARD 15:03 → INTOOBSV 15:03 → 3SCARD 16:34 → OBSVTOIN 06-26 10:55
PROVIDERS: ADMIT Family Medicine; ATTEND Family Medicine
PROC: 5A09357 Assistance with Respiratory Ventilation, Less than 24 Consecutive Hours, Continuous Positive Airway Pressure (ICD-10-PCS; principal; 2021-06-25)
DX: I50.33 Acute on chronic diastolic (congestive) heart failure (principal); J96.21 Acute and chronic respiratory failure with hypoxia; J96.22 Acute and chronic respiratory failure with hypercapnia; G92.8 Other toxic encephalopathy; J44.1 Chronic obstructive pulmonary disease with (acute) exacerbation; E87.2 Acidosis; F10.239 Alcohol dependence with withdrawal, unspecified; F10.231 Alcohol dependence with withdrawal delirium; I25.10 Atherosclerotic heart disease of native coronary artery without angina pectoris; E03.9 Hypothyroidism, unspecified; E11.9 Type 2 diabetes mellitus without complications; F17.210 Nicotine dependence, cigarettes, uncomplicated; F32.9 Major depressive disorder, single episode, unspecified; G40.909 Epilepsy, unspecified, not intractable, without status epilepticus; Z20.822 Contact with and (suspected) exposure to COVID-19; E78.5 Hyperlipidemia, unspecified; F43.10 Post-traumatic stress disorder, unspecified; G47.33 Obstructive sleep apnea (adult) (pediatric); T38.0X5A Adverse effect of glucocorticoids and synthetic analogues, initial encounter; Z79.82 Long term (current) use of aspirin; Z79.899 Other long term (current) drug therapy; Z79.3 Long term (current) use of hormonal contraceptives; Z95.5 Presence of coronary angioplasty implant and graft; Z78.1 Physical restraint status; Z79.890 Hormone replacement therapy; Z91.51 Personal history of suicidal behavior; Z86.010 Personal history of colon polyps; Z80.1 Family history of malignant neoplasm of trachea, bronchus and lung; Z82.49 Family history of ischemic heart disease and other diseases of the circulatory system; Z83.3 Family history of diabetes mellitus; Z71.6 Tobacco abuse counseling
CPT/HCPCS: 36415; 36600; 70450; 71045; 71046; 71275; 80048; 80053; 81003; 82140; 82607; 82746; 82803; 82805; 83735; 83880; 84145; 84443; 84484; 85025; 85379; 85610; 85730; 87635; 93005; 93306; 94640; 94660; 94760; 95816; 99285

== ENCOUNTER 2021-07-30 14:01 | Inpatient (IN) | payer MEDICARE ==
--- NOTE | 2021-07-30 16:12 | XR ---
EXAMINATION TYPE: XR chest 2V DATE OF EXAM: 07/30/2021 COMPARISON: 07/13/2021, 06/25/2021 HISTORY: 61 year-old male shortness of breath TECHNIQUE: PA and lateral views FINDINGS: Heart is borderline enlarged. Hazy lower lung densities likely relating to overlying soft tissue. Pat whitney left basilar opacity. Interstitial prominence. No pleural effusion. IMPRESSION: Borderline heart size and interstitial prominence, correlate to exclude pulmonary vascular congestio n. Patchy left basilar atelectasis versus developing infiltrate.
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
[2021-07-30 17:33] LABS: INR 0.9 (<1.2); Prothrombin Time 10.3 sec (9.0-12.0)
[2021-07-30 17:40] LABS: Basophils # (A) 0.1 k/uL (0-0.2); Basophils % (A) 1 %; Eosinophils # (A) 0.2 k/uL (0-0.7); Eosinophils % (A) 2 %; HCT 51.8 % (39.0-53.0); HGB 16.7 gm/dL (13.0-17.5); Lymphocytes # (A) 2.4 k/uL (1.0-4.8); Lymphocytes % (A) 22 %; MCH 33.9 pg (25.0-35.0); MCHC 32.3 g/dL (31.0-37.0); Macrocytosis Moderate; Mean Platelet Volume 6.7; Monocytes # (A) 0.6 k/uL (0-1.0); Monocytes % (A) 5 %; Neutrophils # (A) 7.3 k/uL (1.3-7.7); Neutrophils % (A) 67 %; Platelet Count 256 k/uL (150-450); RBC 4.93 m/uL (4.30-5.90); RDW 14.4 % (11.5-15.5); WBC 10.9 k/uL (3.8-10.6)
[2021-07-30 17:41] LABS: Albumin 4.2 g/dL (3.5-5.0); Calcium 9.2 mg/dL (8.4-10.2); Magnesium 1.9 mg/dL (1.6-2.3); Potassium 3.9 mmol/L (3.5-5.1); Total Bilirubin 0.3 mg/dL (0.2-1.3)
[2021-07-30 18:42] LABS: ABG Base Excess 18.5 mmol/L; ABG Oxygen Saturation 88.9 % (94-97); ABG PH 7.37 (7.35-7.45); ABG TCO2 46 mmol/L (19-24)
[2021-07-30 18:44] LABS: ABG PCO2 77 mmHg (35-45); ABG PO2 55 mmHg (83-108)
[2021-07-30 18:45] LABS: ABG HCO3 44 mmol/L (21-25); Allen Test Performed? Yes
[2021-07-30] MEDS ORDERED: IPRATROPIUM-ALBUTEROL 3 ML NEB INHALATION STA (19:11)
[2021-07-30] MEDS ORDERED: methylPREDNISolone SOD SUCCI 125 MG/2 ML VIAL IV STA (19:12)
[2021-07-30] MEDS ORDERED: NALOXONE 0.4 MG/ML 1 ML VIAL IV PRN (19:45)
[2021-07-30] MEDS ORDERED: LORazepam 2 MG/ML INJ IV STA (19:54)
[2021-07-30] MEDS ORDERED: IPRATROPIUM-ALBUTEROL 3 ML NEB INHALATION PRN (19:56)
[2021-07-30] MEDS: methylPREDNISolone SOD SUCCI 40 MG/ML 1 ML VIAL IV SCH (22:11)
[2021-07-30] MEDS: ESCITALOPRAM 20 MG TAB PO SCH (23:44)
[2021-07-30] MEDS: ATORVASTATIN 40 MG TAB PO SCH (23:44)
[2021-07-30] MEDS: FUROSEMIDE 20 MG TAB PO SCH (23:44)
[2021-07-30] MEDS: lamoTRIgine 100 MG TAB PO SCH (23:46)
[2021-07-30] MEDS: OLANZapine 10 MG TAB PO SCH (23:47)
[2021-07-31] MEDS: SYMBICORT 80-4.5 MCG INHALER INHALATION SCH ×2 (07:43→20:06)
[2021-07-31] MEDS: LEVOTHYROXINE 25 MCG TAB PO SCH (08:45)
[2021-07-31] MEDS: ASPIRIN 81 MG PO SCH (08:45)
[2021-07-31] MEDS: ISOSORBIDE MONONITRATE ER 30 MG TAB.ER.24H PO SCH (08:46)
[2021-07-31] MEDS: lamoTRIgine 100 MG TAB PO SCH ×2 (08:46→20:53)
[2021-07-31] MEDS: methylPREDNISolone SOD SUCCI 40 MG/ML 1 ML VIAL IV SCH ×2 (08:47→20:52)
[2021-07-31] MEDS: METOPROLOL TARTRATE 12.5 MG TAB PO SCH ×2 (08:50→20:53)
[2021-07-31 08:55] LABS: Basophils % (A) 0 %; Eosinophils % (A) 0 %; HCT 54.6 % (39.0-53.0); HGB 17.1 gm/dL (13.0-17.5); Lymphocytes # (A) 1.6 k/uL (1.0-4.8); Lymphocytes % (A) 12 %; MCHC 31.2 g/dL (31.0-37.0); MCV 105.5 fL (80.0-100.0); Macrocytosis Moderate; Mean Platelet Volume 6.8; Monocytes # (A) 0.2 k/uL (0-1.0); Monocytes % (A) 2 %; Neutrophils # (A) 11.2 k/uL (1.3-7.7); Neutrophils % (A) 86 %; Platelet Count 264 k/uL (150-450); RBC 5.18 m/uL (4.30-5.90); RDW 13.7 % (11.5-15.5); WBC 13.1 k/uL (3.8-10.6)
[2021-07-31 09:12] LABS: African American GFR (CKD) >90 (>60 ml/min/1.73 sqM); Anion Gap 8 mmol/L; Blood Urea Nitrogen 23 mg/dL (9-20); Calcium 9.3 mg/dL (8.4-10.2); Carbon Dioxide 35 mmol/L (22-30); Chloride 94 mmol/L (98-107); Glucose 161 mg/dL (74-99); Non-African American GFR(CKD) >90 (>60 ml/min/1.73 sqM); Potassium 4.7 mmol/L (3.5-5.1); Sodium 137 mmol/L (137-145)
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
[2021-07-31] MEDS: IPRATROPIUM-ALBUTEROL 3 ML NEB INHALATION SCH ×4 (12:53→20:06)
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
[2021-07-31] MEDS: PANTOPRAZOLE 40 MG/10 ML VIAL IVP SCH (14:15)
[2021-07-31 16:29] LABS: Glucose,Whole Blood 272 mg/dL (75-99)
[2021-07-31] MEDS: OLANZapine 10 MG TAB PO SCH (20:52)
[2021-07-31] MEDS: ESCITALOPRAM 20 MG TAB PO SCH (20:53)
[2021-07-31] MEDS: ATORVASTATIN 40 MG TAB PO SCH (20:53)
[2021-07-31] MEDS: INSULIN ASPART (NovoLOG) 100 UNIT/ML VIAL SQ SCH (21:08)
[2021-07-31 21:09] LABS: Glucose,Whole Blood 173 mg/dL (75-99)
[2021-08-01] MEDS: INSULIN ASPART (NovoLOG) 100 UNIT/ML VIAL SQ SCH ×2 (05:40→11:47)
[2021-08-01] MEDS: LEVOTHYROXINE 25 MCG TAB PO SCH (05:44)
[2021-08-01 06:11] LABS: Glucose,Whole Blood 121 mg/dL (75-99)
[2021-08-01] MEDS: IPRATROPIUM-ALBUTEROL 3 ML NEB INHALATION SCH ×2 (07:01→11:11)
[2021-08-01] MEDS: SYMBICORT 80-4.5 MCG INHALER INHALATION SCH (07:01)
[2021-08-01] MEDS: METOPROLOL TARTRATE 12.5 MG TAB PO SCH (08:28)
[2021-08-01] MEDS: FUROSEMIDE 20 MG TAB PO SCH (08:28)
[2021-08-01] MEDS: ASPIRIN 81 MG PO SCH (08:28)
[2021-08-01] MEDS: lamoTRIgine 100 MG TAB PO SCH (08:28)
[2021-08-01] MEDS: methylPREDNISolone SOD SUCCI 40 MG/ML 1 ML VIAL IV SCH (08:28)
[2021-08-01] MEDS: ISOSORBIDE MONONITRATE ER 30 MG TAB.ER.24H PO SCH (08:28)
[2021-08-01] MEDS: PANTOPRAZOLE 40 MG/10 ML VIAL IVP SCH (08:29)
[2021-08-01 09:22] VITALS: RESP 19; TEMP 97.4
[2021-08-01 11:43] LABS: Glucose,Whole Blood 95 mg/dL (75-99)
[2021-08-01 12:07] VITALS: BP 127/78; PULSE 74
[2021-08-01 12:09] LABS: African American GFR (CKD) >90 (>60 ml/min/1.73 sqM); Anion Gap 5 mmol/L; Blood Urea Nitrogen 27 mg/dL (9-20); Calcium 8.8 mg/dL (8.4-10.2); Carbon Dioxide 38 mmol/L (22-30); Chloride 96 mmol/L (98-107); Glucose 98 mg/dL (74-99); Non-African American GFR(CKD) 81 (>60 ml/min/1.73 sqM); Potassium 4.1 mmol/L (3.5-5.1); Sodium 139 mmol/L (137-145)
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
[2021-08-01] MEDS ORDERED: predniSONE 10 MG TAB PO SCH (12:30)
--- NOTE | 2021-08-01 13:50 | P.DS ---
Providers Date of admission: 07/30/21 19:45 Expected date of discharge: 08/01/21 Attending physician: Shane Aden MD Consults: 07/30/21 19:52 Consult Physician Urgent Consulting Provider: Elizabeth Trujillo Consult Reason/Comments: acute NIVDRF, acute COPD exacerbation Do you want consulting provider notified?: Yes Primary care physician: Shane Aden MD Hospital Course: Final Diagnoses: Acute on chronic hypoxic, hypercapnic respiratory failure secondary to acute COPD exacerbation , required CPAP. Wears 2 L nasal cannula O2 at home. Obstructive sleep apnea, home sleep study pending Recently admitted with hypoxic and hypercapnic encephalopathy secondary to nicotine, alcohol DTs and steroids Nicotine dependence, reports decreased amount smoked daily to less than 4-5 cigarettes daily Ongoing alcohol abuse Hypertension Hyperlipidemia CAD Chronic CHF, diastolic Depression Diabetes mellitus type 2 Hypothyroidism Posttraumatic stress disorder Hospital course:Shilo Suazo is a 61 yo M with PMH of CAD, COPD, heavy tobacco abuse, seizure disorder, ongoing nicotine and alcohol dependence, suspected obstructive sleep apnea, who presented to the ED with confusion, hypoxia. reported he frequently takes off his oxygen, decreased his O2 sat with ambulation down to 64% with accompanying confusion. Normally maintains O2 sat of high 80s to low 90s on 2 L nasal cannula. Currently reports he continues to smoke but has decreased the amount of cigarettes to less than 4-5 per day. Patient currently sitting up in chair at the side of bed in the ER denies increased shortness of breath, denies chest pain, palpitations. EKG reported sinus rhythm, troponin negative 1 Denies cough, congestion, chills, lower extremity swelling. Denies nausea vomiting or diarrhea. Denies confusion. Chest x-ray reported borderline heart size, interstitial prominence, patchy left basilar atelectasis versus developing infiltrate ABG reported CO2 of 77, O2 of 55 with BiPAP initiated along with nebulized bronchodilators and steroids. Afebrile, WBC 10.1, 13.1, hemoglobin 17.1, MCV 105.5, platelets 264, sodium 137, potassium 4.7, BUN 23, creatinine 0.9, blood sugars 102 to 161. Maintain on BiPAP again last night, bicarb 38. Oxygen weaned down to 2 L nasal cannula( baseline) maintaining O2 sats of 93%. Significant clinical improvement. Denies sweats, no shakes. Denies chest pain, palpitations or increased shortness of breath. Denies lightheadedness, dizziness or focal deficits. Patient reports he has not consumed alcohol since his last admission. Alcohol cessation reinforced. Patient will be discharged home today in a stable condition with guarded prognosis pending final DC recommendations and clearance per pulmonary. Authorization for BiPAP machine in progress/home sleep study pending. The impression and plan of care has been dictated as directed. : I performed a history and examination of this patient, discussed the same with the dictator. I agree with the dictator's note ,documented as a scribe. Any additional findings or plans will be noted. Patient Condition at Discharge: Stable Plan - Discharge Summary Discharge Rx Participant: No New Discharge Prescriptions: New predniSONE 10 mg PO DIRECTED #30 tab Continue lamoTRIgine [LaMICtal] 200 mg PO HS Escitalopram [Lexapro] 20 mg PO HS OLANZapine [ZyPREXA] 20 mg PO HS Aspirin [Adult Low Dose Aspirin EC] 81 mg PO DAILY Atorvastatin [Lipitor] 40 mg PO HS Isosorbide Mononitrate ER [Imdur] 30 mg PO DAILY lamoTRIgine [LaMICtal] 300 mg PO DAILY Levothyroxine Sodium [Synthroid] 25 mcg PO DAILY Furosemide [Lasix] 20 mg PO MOWEFR Metoprolol Tartrate [Lopressor] 12.5 mg PO BID Ipratropium-Albuterol Nebulize [Duoneb 0.5 mg-3 mg/3 ml Soln] 3 ml INHALATION RT-TID Fluticasone Propion/Salmeterol [Fluticasone-Salmeterol 250-50] 1 puff INHAL ATION RT-BID Discharge Medication List lamoTRIgine [LaMICtal] 200 mg PO HS 12/14/15 [History] Escitalopram [Lexapro] 20 mg PO HS 02/21/16 [History] OLANZapine [ZyPREXA] 20 mg PO HS 02/21/16 [History] Aspirin [Adult Low Dose Aspirin EC] 81 mg PO DAILY 12/16/19 [History] Atorvastatin [Lipitor] 40 mg PO HS 12/16/19 [History] Isosorbide Mononitrate ER [Imdur] 30 mg PO DAILY 12/16/19 [History] lamoTRIgine [LaMICtal] 300 mg PO DAILY 10/01/20 [History] Levothyroxine Sodium [Synthroid] 25 mcg PO DAILY 06/25/21 [History] Fluticasone Propion/Salmeterol [Fluticasone-Salmeterol 250-50] 1 puff INHALATION RT-BID 07/30/21 [History] Furosemide [Lasix] 20 mg PO MOWEFR 07/30/21 [History] Ipratropium-Albuterol Nebulize [Duoneb 0.5 mg-3 mg/3 ml Soln] 3 ml INHALATION RT-TID 07/30/21 [History] Metoprolol Tartrate [Lopressor] 12.5 mg PO BID 07/30/21 [History] predniSONE 10 mg PO DIRECTED #30 tab 07/31/21 [Rx] Follow up Appointment(s)/Referral(s): Elizabeth Trujillo MD [STAFF PHYSICIAN] - 08/16/21 1:00 pm Shane Aden MD [Primary Care Provider] - 08/02/21 10:30 am ([place] [facility]. ) Patient Instructions/Handouts: COPD (Chronic Obstructive Pulmonary Disease) (DC) Discharge Disposition: HOME SELF-CARE
[2021-08-01] MEDS ORDERED: SYMBICORT 160-4.5 MCG INHALER INHALATION SCH (20:00)
== END 2021-08-01 13:40 | disposition home or self-care (01) | DRG 190 ==
LOC: EC 14:01 → 3SCARD 19:45
PROVIDERS: ADMIT Family Medicine; ATTEND Family Medicine
PROC: 5A09357 Assistance with Respiratory Ventilation, Less than 24 Consecutive Hours, Continuous Positive Airway Pressure (ICD-10-PCS; principal; 2021-07-30)
PROC: HZ2ZZZZ Detoxification Services for Substance Abuse Treatment (ICD-10-PCS; 2021-07-30)
DX: J44.1 Chronic obstructive pulmonary disease with (acute) exacerbation (principal); I50.33 Acute on chronic diastolic (congestive) heart failure; J96.21 Acute and chronic respiratory failure with hypoxia; J96.22 Acute and chronic respiratory failure with hypercapnia; G93.40 Encephalopathy, unspecified; E87.4 Mixed disorder of acid-base balance; J98.11 Atelectasis; Z68.41 Body mass index [BMI] 40.0-44.9, adult; Z20.822 Contact with and (suspected) exposure to COVID-19; E66.9 Obesity, unspecified; I11.0 Hypertensive heart disease with heart failure; I25.10 Atherosclerotic heart disease of native coronary artery without angina pectoris; G47.33 Obstructive sleep apnea (adult) (pediatric); R79.89 Other specified abnormal findings of blood chemistry; R41.0 Disorientation, unspecified; E03.9 Hypothyroidism, unspecified; G40.909 Epilepsy, unspecified, not intractable, without status epilepticus; J40 Bronchitis, not specified as acute or chronic; E11.9 Type 2 diabetes mellitus without complications; Z71.41 Alcohol abuse counseling and surveillance of alcoholic; Z71.6 Tobacco abuse counseling; E78.5 Hyperlipidemia, unspecified; F10.10 Alcohol abuse, uncomplicated; F17.210 Nicotine dependence, cigarettes, uncomplicated; F32.A Depression, unspecified; F43.12 Post-traumatic stress disorder, chronic; Z79.82 Long term (current) use of aspirin; Z79.890 Hormone replacement therapy; Z79.899 Other long term (current) drug therapy; Z80.1 Family history of malignant neoplasm of trachea, bronchus and lung; Z82.49 Family history of ischemic heart disease and other diseases of the circulatory system; Z83.3 Family history of diabetes mellitus; Z87.19 Personal history of other diseases of the digestive system; Z87.820 Personal history of traumatic brain injury; Z91.048 Other nonmedicinal substance allergy status; Z86.010 Personal history of colon polyps; Z87.828 Personal history of other (healed) physical injury and trauma
CPT/HCPCS: 36415; 36600; 71046; 80048; 80053; 82805; 83605; 83735; 83880; 84145; 84484; 85025; 85610; 85730; 87635; 93005; 94640; 94660; 94760; 96374; 96375; 96376; 99291

== ENCOUNTER → 2021-10-17 | Outpatient (CLI) | payer MEDICARE ==
[2021-10-17 10:38] LABS: ALT 23 U/L (10-49); AST 25 U/L (14-35); African American GFR (CKD) 80.3 (60.0-200.0); Albumin 4.4 g/dL (3.8-4.9); Albumin/Globulin Ratio 1.82 (1.60-3.17); Alkaline Phosphatase 123 U/L (41-126); BUN/Creat Ratio 11.04 Ratio (12.00-20.00); Blood Urea Nitrogen 12.7 mg/dL (9.0-27.0); Calcium 9.2 mg/dL (8.7-10.3); Carbon Dioxide 32.1 mmol/L (20.0-27.5); Chloride 99 mmol/L (96-109); Chol/HDL Ratio 4.06 Ratio; Creatine Kinase 80 U/L (35-257); Globulin 2.4 g/dL (1.6-3.3); Glucose 99 mg/dL (70-110); LDL Cholesterol,Calculated 76.3 mg/dL (0.0-131.0); Magnesium 2.3 mg/dL (1.5-2.4); Non-African American GFR(CKD) 69.3 (60.0-200.0); Potassium 4.6 mmol/L (3.5-5.5); Sodium 140 mmol/L (135-145); Total Protein 6.8 g/dL (6.2-8.2)
[2021-10-17 12:44] LABS: HCT 59.3 % (39.6-50.0); HGB 18.2 g/dL (13.0-17.0); MCH 31.8 pg (27.0-32.0); MCHC 30.7 g/dL (32.0-37.0); MCV 103.7 fL (80.0-97.0); Mean Platelet Volume 9.3 fL (9.5-12.2); NRBC Per 100 WBC 0 /100 WBCS (0.0-0.0); Platelet Count 225 X 10*3/uL (140-440); RBC 5.72 X 10*6/uL (4.40-5.60); RDW 16.2 % (11.5-14.5); WBC 9.66 X 10*3/uL (4.50-10.00)
== END | disposition home or self-care (01) ==
LOC: LABWHC1 07:10
PROVIDERS: ATTEND Family Medicine
DX: E66.01 Morbid (severe) obesity due to excess calories (principal); F10.11 Alcohol abuse, in remission; J44.9 Chronic obstructive pulmonary disease, unspecified; R53.82 Chronic fatigue, unspecified
CPT/HCPCS: 36415; 80053; 80061; 82140; 82550; 83735; 85027

== ENCOUNTER 2021-12-31 12:12 | Inpatient (IN) | payer MEDICARE ==
[2021-12-31] MEDS ORDERED: FUROSEMIDE 10 MG/ML 4 ML VIAL IV STA (13:34)
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
--- NOTE | 2021-12-31 14:00 | XR ---
EXAMINATION TYPE: XR chest 2V DATE OF EXAM: 12/31/2021 COMPARISON: Chest x-ray July 30, 2021 HISTORY: Difficulty in breathing. TECHNIQUE: Frontal and lateral views of the chest are obtained. FINDINGS: There is increased bilateral multifocal increased opacities in a somewhat low lung volumes . No pleural effusion or pneumothorax seen bilaterally. The cardiac silhouette size is stable and up per limits of normal. The osseous structures are intact. IMPRESSION: New bilateral multifocal increased opacities consistent with acute infiltrates and/or ed med. Correlate to exclude covid-19 infection advised.
[2021-12-31 14:28] LABS: Basophils % (A) 0 %; Eosinophils % (A) 0 %; HGB 17.7 gm/dL (13.0-17.5); Hypochromasia Marked; Lymphocytes # (A) 0.8 k/uL (1.0-4.8); Lymphocytes % (A) 9 %; MCH 30.4 pg (25.0-35.0); MCHC 31.5 g/dL (31.0-37.0); MCV 96.4 fL (80.0-100.0); Mean Platelet Volume 7.7; Monocytes # (A) 0.4 k/uL (0-1.0); Monocytes % (A) 5 %; Neutrophils # (A) 6.8 k/uL (1.3-7.7); Neutrophils % (A) 84 %; Platelet Count 236 k/uL (150-450); RBC 5.81 m/uL (4.30-5.90); RDW 14.9 % (11.5-15.5); WBC 8.1 k/uL (3.8-10.6)
[2021-12-31 14:37] LABS: HCT 56.1 % (39.0-53.0)
[2021-12-31 14:38] LABS: INR 1.2 (<1.2); Partial Thromboplastin Time 26.1 sec (22.0-30.0); Prothrombin Time 12.3 sec (9.0-12.0)
[2021-12-31 14:39] LABS: ABG Base Excess 15.5 mmol/L; ABG Oxygen Saturation 92.8 % (94-97); ABG PH 7.32 (7.35-7.45); ABG PO2 68 mmHg (83-108); ABG TCO2 44 mmol/L (19-24); Allen Test Performed? Yes
[2021-12-31 14:48] LABS: ALT 40 U/L (4-49); AST 27 U/L (17-59); African American GFR (CKD) >90 (>60 ml/min/1.73 sqM); Albumin 4.1 g/dL (3.5-5.0); Alkaline Phosphatase 122 U/L (38-126); Anion Gap 8 mmol/L; Blood Urea Nitrogen 20 mg/dL (9-20); Calcium 8.5 mg/dL (8.4-10.2); Carbon Dioxide 35 mmol/L (22-30); Chloride 92 mmol/L (98-107); Glucose 121 mg/dL (74-99); Non-African American GFR(CKD) 88 (>60 ml/min/1.73 sqM); Potassium 4.8 mmol/L (3.5-5.1); Sodium 135 mmol/L (137-145); Total Bilirubin 0.7 mg/dL (0.2-1.3); Total Protein 6.4 g/dL (6.3-8.2)
[2021-12-31 14:53] LABS: ABG HCO3 42 mmol/L (21-25); ABG PCO2 81 mmHg (35-45)
[2021-12-31] MEDS: FUROSEMIDE 10 MG/ML 4 ML VIAL IV SCH ×2 (15:43→23:06)
[2021-12-31] MEDS: NITROGLYCERIN OINT 1 INCH/GM PACKET TOPICAL SCH ×2 (17:21→21:53)
[2021-12-31] MEDS: ATORVASTATIN 40 MG TAB PO SCH (23:06)
[2021-12-31] MEDS: ESCITALOPRAM 20 MG TAB PO SCH (23:06)
[2021-12-31] MEDS: lamoTRIgine 100 MG TAB PO SCH (23:06)
[2022-01-01] MEDS: OLANZapine 10 MG TAB PO SCH ×2 (03:07→21:30)
[2022-01-01] MEDS: FUROSEMIDE 10 MG/ML 4 ML VIAL IV SCH ×2 (06:39→21:29)
[2022-01-01] MEDS: LEVOTHYROXINE 25 MCG TAB PO SCH (06:39)
[2022-01-01] MEDS: lamoTRIgine 100 MG TAB PO SCH ×2 (09:18→21:30)
[2022-01-01] MEDS: ASPIRIN 81 MG PO SCH (09:18)
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
[2022-01-01] MEDS: ISOSORBIDE MONONITRATE ER 30 MG TAB.ER.24H PO SCH (12:42)
--- NOTE | 2022-01-01 13:05 | CA ---
Transthoracic Echo Report Name: Shilo Suazo Age: 61 Gender: M : 1960 Exam Date: 01/01/2022 09:44 Exam Location: [facility] Ht (in): 66 Wt (lb): 244 Ordering Physician: Tiara Mendoza Attending/Referring Phys: [id number], [employer]ji [employer] Procedure CPT: Indications: LV function Cardiac Hx: Technical Quality: Very technically difficult study Contrast 1: Lumason Total Dose (mL): 4 Contrast 2: Total Dose (mL): MEASUREMENTS (Male / Female) Normal Values 2D ECHO LV Diastolic Diameter PLAX 4.2 cm 4.2 - 5.9 / 3.9 - 5.3 cm LV Systolic Diameter PLAX 2.9 cm IVS Diastolic Thickness 1.2 cm 0.6 - 1.0 / 0.6 - 0.9 cm LVPW Diastolic Thickness 1.1 cm 0.6 - 1.0 / 0.6 - 0.9 cm LV Relative Wall Thickness 0.5 RV Internal Dim ED PLAX 4.5 cm M-MODE Aortic Root Diameter MM 3.4 cm LA Systolic Diameter MM 3.7 cm LA Ao Ratio MM 1.1 AV Cusp Separation MM 2.0 cm FINDINGS Left Ventricle Mildly increased left ventricular wall thickness. Normal left ventricular systolic function with no obvious regional wall motion abnormalities. Left ventricular ejection fraction is estimated at 55 %. Right Ventricle Mild to moderate right ventricular dilatation. Right Atrium Right atrium not well visualized. Left Atrium Normal left atrial size. Mitral Valve Mitral valve not well visualized. Aortic Valve Aortic valve not well visualized. Tricuspid Valve Tricuspid valve not well visualized. Pulmonic Valve Pulmonic valve not well visualized. Pericardium No pericardial effusion. Aorta Aortic root and proximal ascending aorta not well visualized. CONCLUSIONS Technically difficult study Left ventricular ejection fraction 55% Mild to moderate right ventricular dilation no pericardial effusion Previewed by: Dr. Julio César Rai DO (Electronically Signed) Final Date: 01 January 2022 13:04
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
[2022-01-01] MEDS: methylPREDNISolone SOD SUCCI 40 MG/ML 1 ML VIAL IV SCH ×2 (17:11→23:27)
[2022-01-01] MEDS: IPRATROPIUM-ALBUTEROL 3 ML NEB INHALATION PRN (20:08)
[2022-01-01] MEDS: SYMBICORT 160-4.5 MCG INHALER INHALATION SCH (20:08)
[2022-01-01] MEDS: ESCITALOPRAM 20 MG TAB PO SCH (21:30)
[2022-01-01] MEDS: DOXYCYCLINE 100 MG CAP PO SCH (21:30)
[2022-01-01] MEDS: ATORVASTATIN 40 MG TAB PO SCH (21:30)
[2022-01-02] MEDS: LEVOTHYROXINE 25 MCG TAB PO SCH (06:36)
[2022-01-02 06:51] LABS: Glucose,Whole Blood 136 mg/dL (70-110)
[2022-01-02 07:33] LABS: ABG Base Excess 25.4 mmol/L; ABG Oxygen Saturation 91.2 % (94-97); ABG PH 7.37 (7.35-7.45); ABG PO2 66 mmHg (83-108); ABG TCO2 53 mmol/L (19-24); Allen Test Performed? Yes
[2022-01-02 07:41] LABS: ABG HCO3 51 mmol/L (21-25); ABG PCO2 88 mmHg (35-45)
[2022-01-02] MEDS: SYMBICORT 160-4.5 MCG INHALER INHALATION SCH ×2 (07:59→20:06)
[2022-01-02] MEDS: IPRATROPIUM-ALBUTEROL 3 ML NEB INHALATION PRN ×4 (07:59→20:06)
[2022-01-02] MEDS: ISOSORBIDE MONONITRATE ER 30 MG TAB.ER.24H PO SCH (08:24)
[2022-01-02] MEDS: FUROSEMIDE 10 MG/ML 4 ML VIAL IV SCH ×2 (08:24→21:21)
[2022-01-02] MEDS: lamoTRIgine 100 MG TAB PO SCH ×2 (08:24→21:20)
[2022-01-02] MEDS: DOXYCYCLINE 100 MG CAP PO SCH ×2 (08:25→21:20)
[2022-01-02] MEDS: methylPREDNISolone SOD SUCCI 40 MG/ML 1 ML VIAL IV SCH ×3 (08:25→23:59)
[2022-01-02] MEDS: METOPROLOL SUCCINATE (ER) 25 MG TAB.ER.24H PO SCH (08:25)
[2022-01-02] MEDS: ASPIRIN 81 MG PO SCH (08:26)
[2022-01-02 08:28] LABS: African American GFR (CKD) >90 (>60 ml/min/1.73 sqM); Blood Urea Nitrogen 25 mg/dL (9-20); Calcium 8.8 mg/dL (8.4-10.2); Chloride 83 mmol/L (98-107); Glucose 137 mg/dL (74-99); Non-African American GFR(CKD) 89 (>60 ml/min/1.73 sqM); Potassium 4.1 mmol/L (3.5-5.1); Sodium 137 mmol/L (137-145)
[2022-01-02 08:36] LABS: Anion Gap 8 mmol/L
[2022-01-02 08:40] LABS: Carbon Dioxide 46 mmol/L (22-30)
--- NOTE | 2022-01-02 09:59 | P.PN ---
Subjective Progress Note Date: 01/02/22 HISTORY OF PRESENT ILLNESS: This is a 61-year-old male with a past medical history significant for coronary artery disease with previous stenting of the LAD, hyperlipidemia, COPD with home oxygen use, congestive heart failure, and chronic nicotine dependence. Patient follows in the office with Dr. Perez. We have been asked to see the patient in consultation for CHF. Patient examined at the bedside. Patient was brought to the hospital secondary to shortness of breath. According to the ER records, the patients pulse ox at home was in the 70s. The patient is currently on a bipap this morning. He is somewhat lethargic. He denies chest pain or pressure. He reports improvement in his breathing this morning. Vital signs are stable. * EKG reveals sinus mechanism with no signs of acute ischemia. * Chest xray new bilateral multifocal increased opacities consistent with acute infiltrates and/or edema.. * Laboratory data: WBC 8.1. Hemoglobin 17.7. Platelet count 236. Sodium 135. Potassium 4.8. BUN 20. Creatinine 0.95. Lactic acid 0.9. Troponin negative 1. ProBNP 1450. * Current home cardiac medications include aspirin 81 mg daily, Lasix 20 mg Friday, Imdur 30 mg daily, and atorvastatin 20 mg at night * Most recent echocardiogram obtained in June 2021 revealed ejection fraction 55-60%. * Cardiac catheterization history: December 2019 with stenting to the LAD 01/02/2022 Patient examined this morning at the bedside. Patient denies chest pain or pressure. He currently denies SOB. He remains on Bipap. Co2 this morning 88. He remains on IV lasix. Vital signs are stable. Echo reveals Ef 55%. Creatinine stable at 0.94 PHYSICAL EXAM: VITAL SIGNS: Reviewed. GENERAL: Well-developed in no acute distress. HEENT: Head is normocephalic. Pupils are equal, round. Sclerae anicteric. Mucous membranes of the mouth are moist. Neck supple. No JVD or thyromegaly LUNGS: Respirations even and unlabored. Lungs diminished with rhonchi throughout. HEART: Regular rate and rhythm. S1 and S2 heard. ABDOMEN: Soft. Nondistended. Nontender. EXTREMITIES: Normal range of motion. No clubbing or cyanosis. Peripheral pulse s intact. Trace lower extremity edema NEUROLOGIC: Lethargic. Awakens to verbal stimuli. ASSESSMENT: Shortness of breath Acute on chronic hypoxic and hypercapnic respiratory failure COPD Acute on chronic heart failure with preserved ejection fraction Coronary artery disease with previous PCI to LAD Hyperlipidemia Chronic nicotine dependence PLAN: Continue current cardiac medications Continue IV lasix for additional 24 hours Daily weights, accurate I&O, and monitoring of kidney function Pulmonary following Further recommendations pending patient course Nurse practitioner note has been reviewed by physician. Signing provider agrees with the documented findings, assessment, and plan of care. Objective - Vital Signs Vital signs: Vital Signs Temp 98.1 F 01/02/22 08:00 Pulse 88 01/02/22 08:17 Resp 16 01/02/22 08:00 BP 130/86 01/02/22 08:00 Pulse Ox 95 01/02/22 08:00 FiO2 35 01/02/22 08:00 Intake & Output 01/01/22 01/02/22 01/02/22 18:59 06:59 18:59 Intake Total 240 888 Output Total 1250 Balance 240 -362 Weight 108.7 kg Intake: Oral 240 888 Output: Urine 1250 Other: # Voids 3 2 - Labs CBC & Chem 7: 12/31/21 14:18 01/02/22 07:22 Labs: Abnormal Lab Results - Last 24 Hours (Table) 01/02/22 01/02/22 01/02/22 Range/Units 06:49 07:22 07:29 ABG pCO2 88 H* (35-45) mmHg ABG pO2 66 L (83-108) mmHg ABG HCO3 51 H* (21-25) mmol/L ABG Total CO2 53 H (19-24) mmol/L ABG O2 Saturation 91.2 L (94-97) % Chloride 83 L (98-107) mmol/L Carbon Dioxide 46 H* (22-30) mmol/L BUN 25 H (9-20) mg/dL Glucose 137 H (74-99) mg/dL POC Glucose (mg/dL) 136 H (70-110) mg/dL
[2022-01-02 12:10] VITALS: BMI 38.7
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
[2022-01-02] MEDS: NICOTINE 21MG/24HR PATCH TRANSDERM SCH (14:01)
[2022-01-02] MEDS: ESCITALOPRAM 20 MG TAB PO SCH (21:20)
[2022-01-02] MEDS: ATORVASTATIN 40 MG TAB PO SCH (21:20)
[2022-01-02] MEDS: OLANZapine 10 MG TAB PO SCH (21:20)
--- NOTE | 2022-01-02 23:29 | P.PN ---
Subjective Progress Note Date: 01/02/22 Pt remains lethargic this morning, ABG repeated and CO2 88, bicarb 51. He states he has been compliant with the BIPAP overnight. He denies shortness of breath. Objective - Vital Signs Vital signs: Vital Signs Temp 98.6 F 01/02/22 20:00 Pulse 85 01/02/22 20:21 Resp 16 01/02/22 20:00 BP 144/81 01/02/22 20:00 Pulse Ox 93 L 01/02/22 20:00 FiO2 35 01/02/22 20:06 Intake & Output 01/02/22 01/02/22 01/03/22 06:59 18:59 06:59 Intake Total 888 240 240 Output Total 1250 1100 Balance -362 240 -860 Weight 108.7 kg 108.7 kg Intake: Oral 888 240 240 Output: Urine 1250 1100 Other: # Voids 2 1 - Exam Gen: elderly male on BIPAP CV: RRR, no murmur Lungs: Coarse breath sounds, wheezing and rhonchi Abd: soft, nontender Skin: warm and dry - Labs CBC & Chem 7: 12/31/21 14:18 01/02/22 07:22 Labs: Abnormal Lab Results - Last 24 Hours (Table) 01/02/22 01/02/22 01/02/22 Range/Units 06:49 07:22 07:29 ABG pCO2 88 H* (35-45) mmHg ABG pO2 66 L (83-108) mmHg ABG HCO3 51 H* (21-25) mmol/L ABG Total CO2 53 H (19-24) mmol/L ABG O2 Saturation 91.2 L (94-97) % Chloride 83 L (98-107) mmol/L Carbon Dioxide 46 H* (22-30) mmol/L BUN 25 H (9-20) mg/dL Glucose 137 H (74-99) mg/dL POC Glucose (mg/dL) 136 H (70-110) mg/dL Assessment and Plan Plan: Continue with solumedrol, lasix, encourage BIPAP. Continue with doxycycline and duonebs
[2022-01-02 23:59] VITALS: RESP 18
[2022-01-03 06:03] LABS: Glucose,Whole Blood 148 mg/dL (70-110)
[2022-01-03] MEDS: LEVOTHYROXINE 25 MCG TAB PO SCH (06:31)
[2022-01-03] MEDS: IPRATROPIUM-ALBUTEROL 3 ML NEB INHALATION PRN ×2 (07:35→10:59)
[2022-01-03] MEDS: SYMBICORT 160-4.5 MCG INHALER INHALATION SCH (07:35)
[2022-01-03 08:14] LABS: African American GFR (CKD) >90 (>60 ml/min/1.73 sqM); Blood Urea Nitrogen 32 mg/dL (9-20); Calcium 9.6 mg/dL (8.4-10.2); Chloride 80 mmol/L (98-107); Glucose 136 mg/dL (74-99); Non-African American GFR(CKD) 87 (>60 ml/min/1.73 sqM); Potassium 4.4 mmol/L (3.5-5.1); Sodium 138 mmol/L (137-145)
[2022-01-03 08:21] LABS: Anion Gap 11 mmol/L
[2022-01-03 08:23] LABS: Carbon Dioxide 47 mmol/L (22-30)
[2022-01-03] MEDS ORDERED: FUROSEMIDE 20 MG TAB PO SCH (09:00)
[2022-01-03] MEDS: ISOSORBIDE MONONITRATE ER 30 MG TAB.ER.24H PO SCH (10:30)
[2022-01-03] MEDS: DOXYCYCLINE 100 MG CAP PO SCH (10:30)
[2022-01-03] MEDS: ASPIRIN 81 MG PO SCH (10:30)
[2022-01-03] MEDS: NICOTINE 21MG/24HR PATCH TRANSDERM SCH (10:30)
[2022-01-03] MEDS: lamoTRIgine 100 MG TAB PO SCH (10:31)
[2022-01-03] MEDS: METOPROLOL SUCCINATE (ER) 25 MG TAB.ER.24H PO SCH (10:31)
[2022-01-03] MEDS: methylPREDNISolone SOD SUCCI 40 MG/ML 1 ML VIAL IV SCH (10:33)
--- NOTE | 2022-01-03 10:33 | P.PN ---
Subjective Progress Note Date: 01/03/22 HISTORY OF PRESENT ILLNESS: This is a 61-year-old male with a past medical history significant for coronary artery disease with previous stenting of the LAD, hyperlipidemia, COPD with home oxygen use, congestive heart failure, and chronic nicotine dependence. Patient follows in the office with Dr. Perez. We have been asked to see the patient in consultation for CHF. Patient examined at the bedside. Patient was brought to the hospital secondary to shortness of breath. According to the ER records, the patients pulse ox at home was in the 70s. The patient is currently on a bipap this morning. He is somewhat lethargic. He denies chest pain or pressure. He reports improvement in his breathing this morning. Vital signs are stable. * EKG reveals sinus mechanism with no signs of acute ischemia. * Chest xray new bilateral multifocal increased opacities consistent with acute infiltrates and/or edema.. * Laboratory data: WBC 8.1. Hemoglobin 17.7. Platelet count 236. Sodium 135. Potassium 4.8. BUN 20. Creatinine 0.95. Lactic acid 0.9. Troponin negative 1. ProBNP 1450. * Current home cardiac medications include aspirin 81 mg daily, Lasix 20 mg Friday, Imdur 30 mg daily, and atorvastatin 20 mg at night * Most recent echocardiogram obtained in June 2021 revealed ejection fraction 55-60%. * Cardiac catheterization history: December 2019 with stenting to the LAD 01/02/2022 Patient examined this morning at the bedside. Patient denies chest pain or pressure. He currently denies SOB. He remains on Bipap. Co2 this morning 88. He remains on IV lasix. Vital signs are stable. Echo reveals Ef 55%. Creatinine stable at 0.94 01/03/2022 Patient examined this morning at the bedside. Patient is sitting on the side of the bed. He has been transitioned from BiPAP to nasal cannula. He denies any shortness of breath. Denies any chest pain or pressure. He remains on IV Lasix. Vital signs are stable. PHYSICAL EXAM: VITAL SIGNS: Reviewed. GENERAL: Well-developed in no acute distress. HEENT: Head is normocephalic. Pupils are equal, round. Sclerae anicteric. Mucous membranes of the mouth are moist. Neck supple. No JVD or thyromegaly LUNGS: Respirations even and unlabored. Lungs diminished with rhonchi thr oughout. HEART: Regular rate and rhythm. S1 and S2 heard. EXTREMITIES: Normal range of motion. No clubbing or cyanosis. Peripheral pulses intact. Trace lower extremity edema ASSESSMENT: Shortness of breath Acute on chronic hypoxic and hypercapnic respiratory failure COPD Acute on chronic heart failure with preserved ejection fraction Coronary artery disease with previous PCI to LAD Hyperlipidemia Chronic nicotine dependence PLAN: Continue current cardiac medications Discontinue IV Lasix. Begin oral Lasix 20 mg daily Patient is anxious to be discharged home today. Agreeable to discharge home today from a cardiac stable point Patient to follow up outpatient with Dr. Perez Nurse practitioner note has been reviewed by physician. Signing provider agrees with the documented findings, assessment, and plan of care. Objective - Vital Signs Vital signs: Vital Signs Temp 97.8 F 01/03/22 04:00 Pulse 76 01/03/22 07:50 Resp 18 01/03/22 04:00 BP 133/84 01/03/22 04:00 Pulse Ox 93 L 01/03/22 04:00 FiO2 35 01/03/22 04:00 Intake & Output 01/02/22 01/03/22 01/03/22 18:59 06:59 18:59 Intake Total 240 240 238 Output Total 1725 1000 Balance 240 -6939 -152 Weight 108.7 kg 107.6 kg Intake: Oral 240 240 238 Output: Urine 1725 1000 Other: # Voids 1 - Labs CBC & Chem 7: 12/31/21 14:18 01/03/22 07:18 Labs: Abnormal Lab Results - Last 24 Hours (Table) 01/03/22 01/03/22 Range/Units 05:56 07:18 Chloride 80 L (98-107) mmol/L Carbon Dioxide 47 H* (22-30) mmol/L BUN 32 H (9-20) mg/dL Glucose 136 H (74-99) mg/dL POC Glucose (mg/dL) 148 H (70-110) mg/dL
[2022-01-03 11:37] LABS: Glucose,Whole Blood 102 mg/dL (70-110)
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
[2022-01-03] MEDS ORDERED: predniSONE 10 MG TAB PO SCH (12:45)
[2022-01-03 14:59] VITALS: TEMP 97.6
[2022-01-03 15:00] VITALS: BP 121/71; PULSE 83
[2022-01-03 16:56] LABS: Glucose,Whole Blood 170 mg/dL (70-110)
--- NOTE | 2022-01-17 11:45 | P.DS ---
Providers Date of admission: 12/31/21 15:18 Expected date of discharge: 01/03/22 Attending physician: Shane Aden MD Consults: 12/31/21 15:18 Consult Physician Routine Consulting Provider: [facility] Consult Reason/Comments: Acute pulmonary edema Do you want consulting provider notified?: Yes Consult Physician Routine Consulting Provider: Elizabeth Trujillo Reason/Comments: Hypercarbia Do you want consulting provider notified?: Yes Primary care physician: Shane Aden MD Hospital Course: Shilo Suazo is a 61 yo M with PMH of CAD, COPD, heavy tobacco abuse, seizure disorder, ongoing nicotine and alcohol dependence, suspected obstructive sleep apnea, who presented to the ED with confusion, hypoxia. Reports he continues to smoke .Patient states not compliant with wearing BiPAP nightly. Denies sore throat or headache. informed ER that O2 sat was in the 70s .ABGs reported CO2 of 81 on admission, pO2 68 on 35% FiO2. Aroused from acute sleep, set up at bedside, conversed appropriately, denies chest pain, palpitations, breathing improving. EKG reporting sinus with incomplete right bundle branch block, troponin negative 1, Echo from June 2021 reporting EF 55-60%, chest x-ray reporting new bilateral multifocal increased opacities consistent with acute infiltrates and or edema. Coronavirus not detected. Afebrile, normal WBC, hemoglobin 17.7, platelets 236, INR 1.2. Sodium 135, potassium 4.8, BUN 20, creatinine 0.95, lactic acid 0.9, glucose 120, magnesium 2, proBNP 1450. BiPAP applied with Lasix IV push initiated in the ER. Pt admitted to medicine, seen by Cardiology and Pulmonology. He was treated with IV steroids and lasix with improvement in his breathing and mentation. His Bicarb remained elevated throughout his hospitalization. Smoking cessation counseling and pt demonstrated understanding and desire to quit. 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 Plan - Discharge Summary Discharge Rx Participant: No New Discharge Prescriptions: New Budesonide-Formot 160-4.5 Mcg [Symbicort 160-4.5 Mcg Inhaler] 2 puff INHALATION RT-BID #1 each Furosemide [Lasix] 20 mg PO DAILY #90 tab predniSONE 10 mg PO DIRECTED #30 tab Metoprolol Succinate (ER) [Toprol XL] 12.5 mg PO DAILY #30 tab Doxycycline [Vibramycin] 100 mg PO BID #14 cap Continue Escitalopram [Lexapro] 20 mg PO HS OLANZapine [ZyPREXA] 20 mg PO HS Aspirin [Adult Low Dose Aspirin EC] 81 mg PO DAILY Atorvastatin [Lipitor] 40 mg PO HS Isosorbide Mononitrate ER [Imdur] 30 mg PO DAILY lamoTRIgine [LaMICtal] 200 mg PO BID Levothyroxine Sodium [Synthroid] 25 mcg PO DAILY Ipratropium-Albuterol Nebulize [Duoneb 0.5 mg-3 mg/3 ml Soln] 3 ml INHALATION RT-TID Fluticasone Propion/Salmeterol [Fluticasone-Salmeterol 250-50] 1 puff INHALATION RT-BID Discontinued Furosemide [Lasix] 20 mg PO MOWEFR predniSONE See Taper PO DIRECTED Doxycycline Hyclate 100 mg PO BID Discharge Medication List Escitalopram [Lexapro] 20 mg PO HS 02/21/16 [History] OLANZapine [ZyPREXA] 20 mg PO HS 02/21/16 [History] Aspirin [Adult Low Dose Aspirin EC] 81 mg PO DAILY 12/16/19 [History] Atorvastatin [Lipitor] 40 mg PO HS 12/16/19 [History] Isosorbide Mononitrate ER [Imdur] 30 mg PO DAILY 12/16/19 [History] lamoTRIgine [LaMICtal] 200 mg PO BID 12/16/19 [History] Levothyroxine Sodium [Synthroid] 25 mcg PO DAILY 06/25/21 [History] Fluticasone Propion/Salmeterol [Fluticasone-Salmeterol 250-50] 1 puff INHALATION RT-BID 07/30/21 [History] Ipratropium-Albuterol Nebulize [Duoneb 0.5 mg-3 mg/3 ml Soln] 3 ml INHALATION RT-TID 07/30/21 [History] Budesonide-Formot 160-4.5 Mcg [Symbicort 160-4.5 Mcg Inhaler] 2 puff INHALATION RT-BID #1 each 01/03/22 [Rx] Doxycycline [Vibramycin] 100 mg PO BID #14 cap 01/03/22 [Rx] Furosemide [Lasix] 20 mg PO DAILY #90 tab 01/03/22 [Rx] Metoprolol Succinate (ER) [Toprol XL] 12.5 mg PO DAILY #30 tab 01/03/22 [Rx] predniSONE 10 mg PO DIRECTED #30 tab 01/03/22 [Rx] Follow up Appointment(s)/Referral(s): Shane Aden MD [Primary Care Provider] - 01/08/22 2:30 pm Man Perez MD [STAFF PHYSICIAN] - 01/14/22 4:15 pm Patient Instructions/Handouts: Pulmonary Edema (ED), Sleep Apnea (GEN), How to Stop Smoking (ED), COPD (Chronic Obstructive Pulmonary Disease) (ED), Alcohol Intoxication (ED), Abuse of Alcohol (ED), At-Risk Alcohol Use (ED), Polysubstance Abuse (ED), CPAP (GEN), BiPAP (GEN), How Your Lungs Work (ED), Shortness of Breath (ED), Sleep Study (GEN) Activity/Diet/Wound Care/Special Instructions: Follow up with the sleep center- Dr. Freedman- [place] for SLEEP STUDY TITRATION- FridayJanuary 20, 0815PM at sleep center in [place] If you need more information please call office. [phone] Discharge Disposition: HOME SELF-CARE
== END 2022-01-03 17:54 | disposition home or self-care (01) | DRG 291 ==
LOC: EC 12:12 → 3SCARD 15:18
PROVIDERS: ADMIT Family Medicine; ATTEND Family Medicine
PROC: 5A09357 Assistance with Respiratory Ventilation, Less than 24 Consecutive Hours, Continuous Positive Airway Pressure (ICD-10-PCS; principal; 2021-12-31)
DX: I11.0 Hypertensive heart disease with heart failure (principal); I50.33 Acute on chronic diastolic (congestive) heart failure; J18.9 Pneumonia, unspecified organism; J96.21 Acute and chronic respiratory failure with hypoxia; J96.22 Acute and chronic respiratory failure with hypercapnia; J44.1 Chronic obstructive pulmonary disease with (acute) exacerbation; J44.0 Chronic obstructive pulmonary disease with (acute) lower respiratory infection; F32.A Depression, unspecified; F10.10 Alcohol abuse, uncomplicated; E11.9 Type 2 diabetes mellitus without complications; E03.9 Hypothyroidism, unspecified; I25.10 Atherosclerotic heart disease of native coronary artery without angina pectoris; F17.210 Nicotine dependence, cigarettes, uncomplicated; I49.1 Atrial premature depolarization; E78.5 Hyperlipidemia, unspecified; F43.10 Post-traumatic stress disorder, unspecified; G47.33 Obstructive sleep apnea (adult) (pediatric); I45.10 Unspecified right bundle-branch block; Z20.822 Contact with and (suspected) exposure to COVID-19; Z99.81 Dependence on supplemental oxygen; Z95.5 Presence of coronary angioplasty implant and graft; Z79.82 Long term (current) use of aspirin; Z79.890 Hormone replacement therapy; Z79.899 Other long term (current) drug therapy; Z79.51 Long term (current) use of inhaled steroids; Z91.048 Other nonmedicinal substance allergy status; Z28.311 Partially vaccinated for COVID-19; Z87.820 Personal history of traumatic brain injury; Z91.51 Personal history of suicidal behavior; Z91.199 Patient's noncompliance with other medical treatment and regimen due to unspecified reason
CPT/HCPCS: 36415; 36600; 71046; 80048; 80053; 82805; 83605; 83735; 83880; 84484; 85025; 85610; 85730; 87635; 93005; 93306; 94640; 94660; 94760; 96374; 99291

== ENCOUNTER 2022-12-26 21:30 | Observation (INO) | payer MEDICARE, OTHER ==
[2022-12-26] MEDS ORDERED: SODIUM CHLORIDE 0.9% 500 ML 500 ML IV STA ×2 (22:15→23:59)
[2022-12-26] MEDS ORDERED: IPRATROPIUM-ALBUTEROL 3 ML NEB INHALATION STA (22:16)
[2022-12-26 22:45] LABS: Basophils # (A) 0.1 k/uL (0-0.2); Basophils % (A) 1 %; Eosinophils # (A) 0.3 k/uL (0-0.7); Eosinophils % (A) 2 %; Lymphocytes # (A) 3.1 k/uL (1.0-4.8); Lymphocytes % (A) 28 %; MCH 34.6 pg (25.0-35.0); MCHC 34.1 g/dL (31.0-37.0); MCV 101.3 fL (80.0-100.0); Macrocytosis Slight; Mean Platelet Volume 7.2; Monocytes # (A) 0.7 k/uL (0-1.0); Monocytes % (A) 7 %; Neutrophils # (A) 6.9 k/uL (1.3-7.7); Neutrophils % (A) 61 %; Platelet Count 236 k/uL (150-450); RBC 5.64 m/uL (4.30-5.90); RDW 13.7 % (11.5-15.5); WBC 11.3 k/uL (3.8-10.6)
[2022-12-26 22:46] LABS: Partial Thromboplastin Time 26.3 sec (22.0-30.0); Prothrombin Time 10.3 sec (9.0-12.0)
[2022-12-26 22:47] LABS: ALT 20 U/L (4-49); AST 23 U/L (17-59); African American GFR (CKD) >90 (>60 ml/min/1.73 sqM); Albumin 3.9 g/dL (3.5-5.0); Alkaline Phosphatase 117 U/L (38-126); Anion Gap 9 mmol/L; Blood Urea Nitrogen 14 mg/dL (9-20); Carbon Dioxide 25 mmol/L (22-30); Chloride 98 mmol/L (98-107); Glucose 97 mg/dL (74-99); Magnesium 1.9 mg/dL (1.6-2.3); Non-African American GFR(CKD) 87 (>60 ml/min/1.73 sqM); Sodium 132 mmol/L (137-145); Total Bilirubin 0.9 mg/dL (0.2-1.3); Total Protein 6.5 g/dL (6.3-8.2)
[2022-12-26 22:52] LABS: HCT 57.1 % (39.0-53.0); HGB 19.5 gm/dL (13.0-17.5)
[2022-12-26 22:56] LABS: NT-Pro-B-Type Natriuretic Pept 41 pg/mL
[2022-12-26 23:10] LABS: Potassium 4.5 mmol/L (3.5-5.1)
--- NOTE | 2022-12-26 23:19 | XR ---
EXAM: XR Chest, 2 Views CLINICAL HISTORY: ITS.REASON XR Reason: syncope TECHNIQUE: Frontal and lateral views of the chest. COMPARISON: No relevant prior studies available. FINDINGS: Lungs: Unremarkable. No consolidation. Pleural space: Unremarkable. No pneumothorax. Heart: Cardiomegaly. Mediastinum: Unremarkable. Bones/joints: Unremarkable. IMPRESSION: No acute findings in the chest.
--- NOTE | 2022-12-26 23:28 | CT ---
EXAM: CT Head Without Intravenous Contrast CLINICAL HISTORY: ITS.REASON CT Reason: syncope TECHNIQUE: Axial computed tomography images of the head/brain without intravenous contrast. CTDI is 49.1 mGy and DLP is 1189.4 mGy-cm. This CT exam was performed using one or more of the following dose reduction techniques: automated exposure control, adjustment of the mA and/or kV according to patient size, and/or use of iterative reconstruction technique. COMPARISON: No relevant prior studies available. FINDINGS: No acute intracranial hemorrhage. No midline shift or mass effect. The territorial vance-white matter differentiation is maintained throughout. Age-related cerebral volume loss. Periventricular and subcortical white matter hypoattenuation, consistent with chronic microangiopathy. The visualized orbits appear grossly unremarkable. The calvarium is intact. The visualized paranasal sinuses and mastoid air cells are grossly clear. IMPRESSION: No acute intracranial hemorrhage, midline shift, or mass effect.
[2022-12-26 23:36] LABS: Basophils # (A) 0.1 k/uL (0-0.2); Basophils % (A) 1 %; Eosinophils # (A) 0.3 k/uL (0-0.7); Eosinophils % (A) 2 %; Lymphocytes # (A) 3.9 k/uL (1.0-4.8); Lymphocytes % (A) 29 %; MCH 34.3 pg (25.0-35.0); MCHC 33.7 g/dL (31.0-37.0); MCV 101.8 fL (80.0-100.0); Macrocytosis Slight; Mean Platelet Volume 7.1; Monocytes # (A) 0.8 k/uL (0-1.0); Monocytes % (A) 6 %; Neutrophils # (A) 8.4 k/uL (1.3-7.7); Neutrophils % (A) 61 %; Platelet Count 234 k/uL (150-450); RBC 5.54 m/uL (4.30-5.90); RDW 13.7 % (11.5-15.5); WBC 13.7 k/uL (3.8-10.6)
[2022-12-26 23:43] LABS: Appearance,Urine Clear (Clear); Bilirubin,Urine Negative (Negative); Blood,Urine Negative (Negative); Color,Urine Yellow; Glucose,Urine (UA) Negative (Negative); Ketones,Urine Negative (Negative); Leukocyte Esterase,Urine Negative (Negative); Nitrite,Urine Negative (Negative); Protein,Urine Negative (Negative); Specific Gravity,Urine 1.016 (1.001-1.035)
[2022-12-27] MEDS ORDERED: SODIUM CHLORIDE 0.9% 1,000 ML IV STA ×2 (00:02→01:41)
[2022-12-27 00:13] LABS: HCT 56.4 % (39.0-53.0)
[2022-12-27] MEDS ORDERED: IPRATROPIUM-ALBUTEROL 3 ML NEB INHALATION STA (01:41)
[2022-12-27] MEDS ORDERED: ACETAMINOPHEN TAB 325 MG TAB PO PRN (01:42)
[2022-12-27] MEDS ORDERED: NALOXONE 0.4 MG/ML 1 ML VIAL IV PRN (01:42)
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
[2022-12-27] MEDS ORDERED: SYMBICORT 160-4.5 MCG INHALER INHALATION SCH (08:00)
[2022-12-27] MEDS: IPRATROPIUM-ALBUTEROL 3 ML NEB INHALATION SCH ×3 (08:15→19:28)
[2022-12-27] MEDS: HEPARIN SODIUM,PORCINE 5,000 UNIT/ML 1 ML VIAL SQ SCH ×3 (08:32→22:04)
[2022-12-27] MEDS: NICOTINE 21MG/24HR PATCH TRANSDERM SCH (15:41)
[2022-12-27] MEDS ORDERED: DEXTROSE 50% SYRINGE 50 ML IVP PRN ×2 (16:14)
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
[2022-12-27] MEDS ORDERED: LORazepam 2 MG/ML INJ IV PRN ×3 (16:38)
[2022-12-27] MEDS ORDERED: THIAMINE 100 MG/ML 2 ML VIAL IM STA (16:38)
[2022-12-27 17:09] LABS: Glucose,Whole Blood 116 mg/dL (70-110)
[2022-12-27] MEDS: THIAMINE 100 MG TAB PO SCH ×3 (17:18→17:50)
[2022-12-27] MEDS: FOLIC ACID 1 MG TAB PO SCH (17:49)
[2022-12-27] MEDS: INSULIN ASPART (NovoLOG) 100 UNIT/ML VIAL SQ SCH ×2 (17:50→21:50)
[2022-12-27] MEDS: PANTOPRAZOLE 40 MG/10 ML VIAL IVP SCH (19:19)
[2022-12-27] MEDS: BUDESONIDE 0.5 MG/2 ML NEBU INHALATION SCH (19:28)
[2022-12-27 21:32] LABS: Glucose,Whole Blood 91 mg/dL (70-110)
[2022-12-27] MEDS: OLANZapine 10 MG TAB PO SCH (22:03)
[2022-12-27] MEDS: ESCITALOPRAM 20 MG TAB PO SCH (22:03)
[2022-12-27] MEDS: lamoTRIgine 100 MG TAB PO SCH (22:03)
[2022-12-28 06:15] LABS: Glucose,Whole Blood 94 mg/dL (70-110)
[2022-12-28] MEDS: INSULIN ASPART (NovoLOG) 100 UNIT/ML VIAL SQ SCH ×4 (06:19→21:08)
[2022-12-28] MEDS: LEVOTHYROXINE 50 MCG TAB PO SCH (06:48)
[2022-12-28] MEDS: PANTOPRAZOLE 40 MG/10 ML VIAL IVP SCH (08:57)
[2022-12-28] MEDS: HEPARIN SODIUM,PORCINE 5,000 UNIT/ML 1 ML VIAL SQ SCH ×3 (08:57→21:31)
[2022-12-28] MEDS: FOLIC ACID 1 MG TAB PO SCH (08:58)
[2022-12-28] MEDS: METOPROLOL SUCCINATE (ER) 25 MG TAB.ER.24H PO SCH (08:58)
[2022-12-28] MEDS: lamoTRIgine 100 MG TAB PO SCH ×2 (08:58→21:31)
[2022-12-28] MEDS: NICOTINE 21MG/24HR PATCH TRANSDERM SCH (08:59)
[2022-12-28] MEDS: BUDESONIDE 0.5 MG/2 ML NEBU INHALATION SCH ×2 (09:19→19:34)
[2022-12-28] MEDS: IPRATROPIUM-ALBUTEROL 3 ML NEB INHALATION SCH ×3 (09:19→19:34)
[2022-12-28 09:44] LABS: Blood Urea Nitrogen 7.1 mg/dL (9.0-27.0); Calcium 9.7 mg/dL (8.7-10.3); Carbon Dioxide 30.6 mmol/L (21.6-31.8); Chloride 103 mmol/L (96-109); Glucose 87 mg/dL (70-110); Magnesium 2.2 mg/dL (1.5-2.4); Potassium 4.5 mmol/L (3.5-5.5); Sodium 143 mmol/L (135-145)
[2022-12-28 10:26] LABS: Basophils # (A) 0.08 X 10*3/uL (0.00-0.10); Basophils % (A) 0.7 %; Eosinophils # (A) 0.23 X 10*3/uL (0.04-0.35); Eosinophils % (A) 2.1 %; HCT 57.6 % (39.6-50.0); HGB 19.4 d/dL (13.0-17.0); Lymphocytes # (A) 2.25 X 10*3/uL (0.90-5.00); Lymphocytes % (A) 20.5 %; MCH 34.5 pg (27.0-32.0); MCHC 33.7 d/dL (32.0-37.0); MCV 102.5 FL (80.0-97.0); Macrocytosis (M) 2+; Mean Platelet Volume 8.7 FL (9.5-12.2); Monocytes # (A) 0.82 X 10*3/uL (0.20-1.00); Monocytes % (A) 7.5 %; NRBC Per 100 WBC 0 X 10*3/uL (0.00-0.01); Neutrophils # (A) 7.58 X 10*3/uL (1.80-7.70); Neutrophils % (A) 68.8 %; Platelet Count 210 X 10*3/uL (140-440); RBC 5.62 X 10*6/uL (4.40-5.60); RDW 13.6 % (11.5-14.5)
[2022-12-28 11:43] LABS: Glucose,Whole Blood 182 mg/dL (70-110)
[2022-12-28] MEDS: ATORVASTATIN 80 MG TAB PO SCH (13:05)
[2022-12-28] MEDS: ASPIRIN 81 MG PO SCH (13:05)
--- NOTE | 2022-12-28 14:22 | CA ---
Transthoracic Echo Report Name: Shilo Suazo Age: 62 Gender: M : 1960 Exam Date: 12/28/2022 11:52 Exam Location: [facility] Ht (in): 66 Wt (lb): 235 Ordering Physician: Fran Mays MD ([id number]) Attending/Referring Phys: Machine Sprayer Najma Villa [facility] Procedure CPT: Indications: Syncope Cardiac Hx: Technical Quality: Technically difficult study Contrast 1: Lumason Total Dose (mL): 5 Contrast 2: Total Dose (mL): MEASUREMENTS (Male / Female) Normal Values 2D ECHO LV Diastolic Diameter PLAX 4.0 cm 4.2 - 5.9 / 3.9 - 5.3 cm LV Systolic Diameter PLAX 2.7 cm IVS Diastolic Thickness 1.2 cm 0.6 - 1.0 / 0.6 - 0.9 cm LVPW Diastolic Thickness 0.8 cm 0.6 - 1.0 / 0.6 - 0.9 cm LV Relative Wall Thickness 0.5 LVOT Diameter 2.0 cm Ascending Aorta Diameter 3.6 cm M-MODE Aortic Root Diameter MM 3.0 cm LA Systolic Diameter MM 3.9 cm LA Ao Ratio MM 1.3 AV Cusp Separation MM 2.0 cm DOPPLER AV Peak Velocity 150.7 cm/s AV Peak Gradient 9.1 mmHg AV Mean Velocity 108.7 cm/s AV Mean Gradient 5.4 mmHg AV Velocity Time Integral 29.6 cm LVOT Peak Velocity 130.1 cm/s LVOT Peak Gradient 6.8 mmHg LVOT Velocity Time Integral 24.6 cm LVOT Stroke Volume 80.9 cm??? LVOT Stroke Volume Index 37.8 ml/m??? LVOT Cardiac Index 2773.0 cm???/min???m??? AV Area Cont Eq vti 2.7 cm??? AV Area Cont Eq pk 2.8 cm??? Mitral E Point Velocity 69.4 cm/s Mitral A Point Velocity 91.7 cm/s Mitral E to A Ratio 0.8 MV Deceleration Time 200.0 ms LV E' Lateral Velocity 9.3 cm/s Mitral E to LV E' Lateral Ratio 7.5 LV E' Septal Velocity 10.2 cm/s Mitral E to LV E' Septal Ratio 6.8 TR Peak Velocity 258.6 cm/s TR Peak Gradient 26.8 mmHg Right Atrial Pressure 15.0 mmHg Pulmonary Artery Systolic Pressu 41.8 mmHg Right Ventricular Systolic Press 41.8 mmHg FINDINGS Left Ventricle Mildly increased septal wall thickness. Left ventricular cavity size normal. Normal left ventricular systolic function with no obvious regional wall motion abnormalities. Left ventricular ejection fraction is estimated at 55-60%. Right Ventricle mild right ventricular dilatation. Moderate pulmonary hypertension. Right Atrium Severe right atrial dilatation. Left Atrium Left atrium not well visualized. Mitral Valve Mitral valve not well visualized. Mild thickening/calcification of the posterior mitral valve leaflet. No mitral regurgitation. Aortic Valve Trileaflet aortic valve. No aortic valve stenosis or regurgitation. Tricuspid Valve Tricuspid valve not well visualized. Trace tricuspid regurgitation. Pulmonic Valve Pulmonic valve not well visualized. Pericardium Minimal pericardial effusion (normal variant). Aorta Normal size aortic root and proximal ascending aorta. CONCLUSIONS Left ventricular ejection fraction is estimated at 55-60%. no obvious regional wall motion abnormalities. Mild right ventricular dilatation. Moderate pulmonary hypertension. RVSP 41 mmHg No mitral regurgitation. Previewed by: Dr Fran Mays (Electronically Signed) Final Date: 28 December 2022 14:21
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
[2022-12-28 17:16] LABS: Glucose,Whole Blood 111 mg/dL (70-110)
[2022-12-28 20:02] LABS: Glucose,Whole Blood 104 mg/dL (70-110)
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
[2022-12-28] MEDS: OLANZapine 10 MG TAB PO SCH (21:31)
[2022-12-28] MEDS: ESCITALOPRAM 20 MG TAB PO SCH (21:31)
[2022-12-29] MEDS: INSULIN ASPART (NovoLOG) 100 UNIT/ML VIAL SQ SCH ×4 (06:21→21:08)
[2022-12-29 06:32] LABS: Glucose,Whole Blood 131 mg/dL (70-110)
[2022-12-29] MEDS: LEVOTHYROXINE 50 MCG TAB PO SCH (06:34)
[2022-12-29] MEDS: BUDESONIDE 0.5 MG/2 ML NEBU INHALATION SCH ×2 (08:36→20:42)
[2022-12-29] MEDS: IPRATROPIUM-ALBUTEROL 3 ML NEB INHALATION SCH ×3 (08:36→20:42)
[2022-12-29] MEDS: ASPIRIN 81 MG PO SCH (09:22)
[2022-12-29] MEDS: lamoTRIgine 100 MG TAB PO SCH ×2 (09:22→21:52)
[2022-12-29] MEDS: ATORVASTATIN 80 MG TAB PO SCH (09:22)
[2022-12-29] MEDS: HEPARIN SODIUM,PORCINE 5,000 UNIT/ML 1 ML VIAL SQ SCH ×3 (09:22→21:52)
[2022-12-29] MEDS: FOLIC ACID 1 MG TAB PO SCH (09:22)
[2022-12-29] MEDS: METOPROLOL SUCCINATE (ER) 25 MG TAB.ER.24H PO SCH (09:22)
[2022-12-29] MEDS: NICOTINE 21MG/24HR PATCH TRANSDERM SCH (09:23)
[2022-12-29] MEDS: PANTOPRAZOLE 40 MG/10 ML VIAL IVP SCH (09:23)
[2022-12-29 12:21] LABS: Basophils # (A) 0.1 k/uL (0-0.2); Basophils % (A) 1 %; Eosinophils # (A) 0.2 k/uL (0-0.7); Eosinophils % (A) 2 %; Lymphocytes # (A) 2.5 k/uL (1.0-4.8); Lymphocytes % (A) 24 %; MCH 34.3 pg (25.0-35.0); MCHC 33.1 g/dL (31.0-37.0); MCV 103.6 fL (80.0-100.0); Macrocytosis Slight; Mean Platelet Volume 7.2; Monocytes # (A) 0.7 k/uL (0-1.0); Monocytes % (A) 7 %; Neutrophils # (A) 6.8 k/uL (1.3-7.7); Neutrophils % (A) 66 %; Platelet Count 221 k/uL (150-450); RDW 13.2 % (11.5-15.5); WBC 10.4 k/uL (3.8-10.6)
[2022-12-29 12:28] LABS: African American GFR (CKD) >90 (>60 ml/min/1.73 sqM); Anion Gap 7 mmol/L; Blood Urea Nitrogen 13 mg/dL (9-20); Calcium 9.6 mg/dL (8.4-10.2); Carbon Dioxide 30 mmol/L (22-30); Chloride 102 mmol/L (98-107); Glucose 112 mg/dL (74-99); Non-African American GFR(CKD) 87 (>60 ml/min/1.73 sqM); Potassium 4.3 mmol/L (3.5-5.1); Sodium 139 mmol/L (137-145)
[2022-12-29 12:34] LABS: HCT 59.1 % (39.0-53.0); HGB 19.5 gm/dL (13.0-17.5)
[2022-12-29] MEDS: SODIUM CHLORIDE 0.9% 1,000 ML IV SCH ×2 (13:29→23:34)
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
[2022-12-29 17:05] LABS: Glucose,Whole Blood 105 mg/dL (70-110)
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
[2022-12-29 20:41] LABS: Glucose,Whole Blood 88 mg/dL (70-110)
[2022-12-29] MEDS: ESCITALOPRAM 20 MG TAB PO SCH (21:52)
[2022-12-29] MEDS: OLANZapine 10 MG TAB PO SCH (21:52)
[2022-12-30 05:40] LABS: Glucose,Whole Blood 117 mg/dL (70-110)
[2022-12-30] MEDS: INSULIN ASPART (NovoLOG) 100 UNIT/ML VIAL SQ SCH (05:40)
[2022-12-30] MEDS: LEVOTHYROXINE 50 MCG TAB PO SCH (06:01)
--- NOTE | 2022-12-30 09:10 | P.PN ---
Subjective Patient is doing well from a cardiac standpoint. No chest discomfort dizziness or lightheadedness He presented with an episode of dizziness and presyncope. The patient stated the did not think he passed out completely, but he does not remember much He has known coronary disease status post coronary stenting to the mid LAD. He is back He is on 40 mg of atorvastatin at home Here in the hospital he was treated with atorvastatin 80 mg daily and aspirin His cardiac enzyme was normal He was orthostatic by blood pressure Plan Stop Imdur completely Continue metoprolol Continue atorvastatin 80 mg daily along with aspirin His 2-D echo and Doppler study showed normal LV systolic function with a mildly enlarged right ventricle Patient is an increased BMI of 38 From a cardiac standpoint he may go home and follow-up with Dr. Mejia who is his primary combiner Atorvastatin 80 mg daily Aspirin 81 mg by mouth daily Continue metoprolol Discontinue Imdur Objective - Vital Signs Vital signs: Vital Signs Temp 97.8 F 12/30/22 02:16 Pulse 61 12/30/22 02:26 Resp 15 12/30/22 02:26 BP 127/68 12/30/22 02:16 Pulse Ox 97 12/30/22 02:16 FiO2 28 12/27/22 08:16 Intake & Output 12/29/22 12/30/22 12/30/22 18:59 06:59 18:59 Intake Total 716 Balance 716 Intake: Oral 716 Other: Voiding Method Toilet Toilet # Voids 3 2 - Labs CBC & Chem 7: 12/29/22 11:27 12/29/22 11:27 Labs: Abnormal Lab Results - Last 24 Hours (Table) 12/29/22 12/29/22 12/30/22 Range/Units 11:27 11:27 05:36 Hgb 19.5 H* (13.0-17.5) gm/dL Hct 59.1 H* (39.0-53.0) % MCV 103.6 H (80.0-100.0) fL Glucose 112 H (74-99) mg/dL POC Glucose (mg/dL) 117 H (70-110) mg/dL
[2022-12-30] MEDS: IPRATROPIUM-ALBUTEROL 3 ML NEB INHALATION SCH ×2 (09:25→12:21)
[2022-12-30] MEDS: BUDESONIDE 0.5 MG/2 ML NEBU INHALATION SCH (09:25)
[2022-12-30] MEDS: NICOTINE 21MG/24HR PATCH TRANSDERM SCH ×2 (09:26→09:31)
[2022-12-30] MEDS: METOPROLOL SUCCINATE (ER) 25 MG TAB.ER.24H PO SCH (09:26)
[2022-12-30] MEDS: THIAMINE 100 MG TAB PO SCH (09:26)
[2022-12-30] MEDS: FOLIC ACID 1 MG TAB PO SCH (09:26)
[2022-12-30] MEDS: HEPARIN SODIUM,PORCINE 5,000 UNIT/ML 1 ML VIAL SQ SCH ×2 (09:26→09:32)
[2022-12-30] MEDS: ASPIRIN 81 MG PO SCH (09:27)
[2022-12-30] MEDS: ATORVASTATIN 80 MG TAB PO SCH (09:27)
[2022-12-30] MEDS: SODIUM CHLORIDE 0.9% 1,000 ML IV SCH (09:27)
[2022-12-30] MEDS: lamoTRIgine 100 MG TAB PO SCH (09:27)
[2022-12-30] MEDS: PANTOPRAZOLE 40 MG/10 ML VIAL IVP SCH (09:27)
[2022-12-30 11:29] LABS: Glucose,Whole Blood 114 mg/dL (70-110)
[2022-12-30 11:33] LABS: Blood Urea Nitrogen 10.8 mg/dL (9.0-27.0); Calcium 9.5 mg/dL (8.7-10.3); Carbon Dioxide 28.9 mmol/L (21.6-31.8); Chloride 100 mmol/L (96-109); Glucose 92 mg/dL (70-110); Potassium 4.2 mmol/L (3.5-5.5); Sodium 140 mmol/L (135-145)
[2022-12-30 12:05] LABS: Basophils # (A) 0.08 X 10*3/uL (0.00-0.10); Basophils % (A) 0.9 %; Eosinophils # (A) 0.27 X 10*3/uL (0.04-0.35); Eosinophils % (A) 2.9 %; HCT 57.2 % (39.6-50.0); HGB 18.9 d/dL (13.0-17.0); Lymphocytes # (A) 2.69 X 10*3/uL (0.90-5.00); Lymphocytes % (A) 29.2 %; MCV 102.9 FL (80.0-97.0); Mean Platelet Volume 8.8 FL (9.5-12.2); Monocytes # (A) 0.78 X 10*3/uL (0.20-1.00); Monocytes % (A) 8.5 %; NRBC Per 100 WBC 0 X 10*3/uL (0.00-0.01); Neutrophils # (A) 5.36 X 10*3/uL (1.80-7.70); Neutrophils % (A) 58.2 %; Platelet Count 234 X 10*3/uL (140-440); RBC 5.56 X 10*6/uL (4.40-5.60); RDW 13.6 % (11.5-14.5); WBC 9.21 X 10*3/uL (4.50-10.00)
[2022-12-30 15:04] VITALS: BP 124/81; PULSE 71; RESP 16; TEMP 98.1
== END 2022-12-30 15:06 | disposition home or self-care (01) ==
LOC: EC 21:30 → 6NMEDSUR 12-27 01:43
PROVIDERS: ADMIT Family Medicine; ATTEND Family Medicine
DX: I95.1 Orthostatic hypotension (principal); E86.0 Dehydration; J44.1 Chronic obstructive pulmonary disease with (acute) exacerbation; J96.11 Chronic respiratory failure with hypoxia; J96.12 Chronic respiratory failure with hypercapnia; I11.0 Hypertensive heart disease with heart failure; I50.32 Chronic diastolic (congestive) heart failure; D75.1 Secondary polycythemia; F10.20 Alcohol dependence, uncomplicated; E11.9 Type 2 diabetes mellitus without complications; E03.9 Hypothyroidism, unspecified; E78.5 Hyperlipidemia, unspecified; I25.10 Atherosclerotic heart disease of native coronary artery without angina pectoris; F32.A Depression, unspecified; F43.10 Post-traumatic stress disorder, unspecified; I27.20 Pulmonary hypertension, unspecified; G40.909 Epilepsy, unspecified, not intractable, without status epilepticus; G47.33 Obstructive sleep apnea (adult) (pediatric); F17.200 Nicotine dependence, unspecified, uncomplicated; Z20.822 Contact with and (suspected) exposure to COVID-19; Z87.820 Personal history of traumatic brain injury; Z95.5 Presence of coronary angioplasty implant and graft; Z99.81 Dependence on supplemental oxygen; Z79.51 Long term (current) use of inhaled steroids; Z79.82 Long term (current) use of aspirin; Z79.890 Hormone replacement therapy; Z79.899 Other long term (current) drug therapy
CPT/HCPCS: 96376 ×2; 96361 ×2; 96372 ×5; 96374; 99285; 36415; 94660; 94640 ×8; 94760; 93005; 83880; 80053; 80048 ×3; 83735 ×2; 84484; 85025 ×4; 85610; 85730; 81003; 83036; 87636; 71046; 70450; G0378 ×4; C8929; S4990; J1644 ×4; C9113 ×3; Q9950; 93306

== ENCOUNTER 2023-10-28 10:01 | Emergency (ER) | payer MEDICARE ==
[2023-10-28] MEDS ORDERED: FAMOTIDINE 20 MG/2 ML VIAL ONE (10:29)
[2023-10-28] MEDS ORDERED: SODIUM CHLORIDE 0.9% 1,000 ML BAG ONE (10:58)
--- NOTE | 2023-11-27 10:09 | CT ---
Patient Shilo Suazo ID [id number] Order # EXAMINATION TYPE: CT ChestAbdPelvis w con DATE OF EXAM: 10/31/2023 INDICATION: Chest and abdomen pain COMPARISON: No comparison available on downtime PACS. CT DLP: 1514 mGycm CONTRAST: 100 mL Isovue-300 during no oral contrast. TECHNIQUE: Axial images at 5 mm thick sections. Reconstructed images in the coronal plane. Delayed images through the kidneys. FINDINGS: CT CHEST: Portion of the thyroid visualized is normal. No suspicious lung nodules or focal infiltrates are present. No enlarged mediastinal or hilar adenopathy is evident. Small lymph nodes are present. The ascending aorta diameter at the level of the main pulmonary artery is 3.6 cm. The main pulmonary artery diameter at the bifurcation is 2.7 cm. Coronary artery calcification is present. CT ABDOMEN: Liver: Normal Spleen: Normal Pancreas: Normal Adrenal glands: The adrenal glands are normal. Gallbladder: Normal Kidneys: No masses are evident. No hydronephrosis is present. No cysts are present. Delayed images were obtained through the kidneys, which remain unremarkable. Aorta: Vascular calcification is within the aorta. Inferior vena cava: Normal. CT PELVIS: Loops of bowel within the abdomen and pelvis are normal. This study is without oral contrast limi ting bowel evaluation. Appendix: Not identified. No dilated tubular structure or inflammatory changes evident. Urinary bladder: Normal. Genitourinary structures: Somewhat prominent prostate with calcification Osseous structures: No suspicious lytic or sclerotic lesions. IMPRESSION: 1. No suspicious abnormality to account for acute chest and abdomen pain 2. Coronary artery calcification. 3. Mildly prominent prostate.
--- NOTE | 2023-11-27 10:10 | CT ---
Patient Shilo Suazo ID [id number] Order # EXAMINATION TYPE: CT brain wo con CT DLP: 1145 mGycm, Automated exposure control for dose reduction was used. DATE OF EXAM: 10/28/2023 12:15 PM COMPARISON: THIS EXAM WAS READ DURING PACS DOWNTIME, NO PRIORS AVAILABLE.. CLINICAL INDICATION: AMS. TECHNIQUE: Brain: Axial CT images of the brain were obtained with coronal and sagittal reformats created and rev iewed. Contrast used: None. Oral contrast used: None. FINDINGS: Brain: Extra-axial spaces: No abnormal extra-axial fluid collections. Ventricular system: Within normal limits Cerebral parenchyma: No acute intraparenchymal hemorrhage or mass effect. The vance-white junction is well differentiated. Cerebellum: Unremarkable. Mass effect: No evidence of midline shift. Intracranial vasculature: unremarkable Soft tissues: Normal. Calvarium/osseous structures: No depressed skull fracture. Paranasal sinuses and mastoid air cells: Mild scattered paranasal sinus disease. Visualized orbits: Bilateral aphakia IMPRESSION: No acute intracranial process.
== END 2023-10-28 16:35 | disposition left against medical advice (07) ==
LOC: EC 10:01
DX: R07.89 Other chest pain (principal)
CPT/HCPCS: 70450; 71260; 74177; 93005; 96374; 99285

== ENCOUNTER 2023-12-01 22:25 | Emergency (ER) | payer MEDICARE ==
[2023-12-01 22:35] VITALS: BP 108/72; PULSE 72; RESP 18; TEMP 98.2
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
[2023-12-01 23:04] LABS: Basophils # (A) 0.1 k/uL (0-0.2); Basophils % (A) 1 %; Eosinophils # (A) 0.5 k/uL (0-0.7); Eosinophils % (A) 4 %; HCT 49.5 % (39.0-53.0); HGB 16.3 gm/dL (13.0-17.5); Lymphocytes % (A) 38 %; MCH 31.8 pg (25.0-35.0); MCHC 32.8 g/dL (31.0-37.0); MCV 96.7 fL (80.0-100.0); Mean Platelet Volume 6.6; Monocytes # (A) 0.6 k/uL (0-1.0); Monocytes % (A) 5 %; Neutrophils # (A) 5.1 k/uL (1.3-7.7); Neutrophils % (A) 49 %; Platelet Count 270 k/uL (150-450); RBC 5.12 m/uL (4.30-5.90); RDW 12.2 % (11.5-15.5); WBC 10.4 k/uL (3.8-10.6)
[2023-12-01 23:14] LABS: Partial Thromboplastin Time 28.6 sec (22.0-30.0); Prothrombin Time 10.5 sec (10.0-12.5)
[2023-12-01] MEDS: SODIUM CHLORIDE 0.9% 1,000 ML IV STA (23:21)
[2023-12-01 23:26] LABS: ALT 28 U/L (4-49); African American GFR (CKD) >90 (>60 ml/min/1.73 sqM); Albumin 4.3 g/dL (3.5-5.0); Anion Gap 9 mmol/L; Blood Urea Nitrogen 14 mg/dL (9-20); Carbon Dioxide 29 mmol/L (22-30); Chloride 94 mmol/L (98-107); Glucose 93 mg/dL (74-99); Lipase 154 U/L (23-300); Non-African American GFR(CKD) >90 (>60 ml/min/1.73 sqM); Sodium 132 mmol/L (137-145); Total Bilirubin 0.6 mg/dL (0.2-1.3); Total Protein 6.7 g/dL (6.3-8.2)
[2023-12-01 23:38] LABS: Appearance,Urine Clear (Clear); Bilirubin,Urine Negative (Negative); Blood,Urine Negative (Negative); Color,Urine Colorless; Glucose,Urine (UA) Negative (Negative); Ketones,Urine Negative (Negative); Leukocyte Esterase,Urine Negative (Negative); Nitrite,Urine Negative (Negative); PH, Urine 5.5 (5.0-8.0); Protein,Urine Negative (Negative); Specific Gravity,Urine 1.003 (1.001-1.035); Urobilinogen,Urine <2.0 mg/dL (<2.0)
[2023-12-01 23:43] LABS: Alcohol 179 mg/dL; Potassium 3.9 mmol/L (3.5-5.1)
[2023-12-01 23:44] LABS: AST 29 U/L (17-59); Alkaline Phosphatase 95 U/L (38-126); Phosphorus 3.9 mg/dL (2.5-4.5)
[2023-12-02] MEDS: DEXAMETHASONE SOD PHOSPHATE 10 MG/ML 1 ML VIAL IVP STA (00:06)
[2023-12-02] MEDS: IPRATROPIUM-ALBUTEROL 3 ML NEB INHALATION STA (00:06)
== END 2023-12-02 00:06 | disposition home or self-care (01) ==
LOC: EC 22:25
CPT/HCPCS: 36415; 80053; 80320; 81003; 83605; 83690; 83735; 84100; 84484; 85025; 85610; 85730; 93005; 99284

== ENCOUNTER → 2024-03-03 | Outpatient (CLI) | payer MEDICARE ==
--- NOTE | 2024-03-03 11:30 | CT ---
EXAMINATION TYPE: CT chest w con CT DLP: 780 mGycm, Automated exposure control for dose reduction was used. DATE OF EXAM: 03/03/2024 11:23 AM COMPARISON: CT chest abdomen and pelvis 11/21/2023, CTA chest 06/25/2021 CLINICAL INDICATION:Male, 64 years old with history of R91.1 Solitary pulmonary nodule; PHH, Solitary pulmonary nodule TECHNIQUE: Multiple axial images were obtained through the chest following the administration of 100 cc of Isovue 300. . Coronal and sagittal reformats reviewed. FINDINGS: LUNGS/ PLEURA: No pleural effusion, pneumothorax, or focal consolidation. Linear atelectasis within t he lingula. No suspicious pulmonary nodule or mass. AIRWAY: Patent and unremarkable.. HEART: Size within normal limits.No pericardial effusion. Moderate coronary arterial calcification mo st prominent along the LAD. MEDIASTINUM: No evidence of adenopathy. VASCULATURE: No aortic aneurysm. MUSCULOSKELETAL: Mild disc degeneration changes are present throughout the thoracolumbar spine. No ac adolph osseous abnormality. Prominent Schmorl's node involving the superior endplate of the T11 vertebra l body. SOFT TISSUES/LYMPH NODES: Minimal bilateral gynecomastia right greater than left. LOWER NECK: No significant findings. UPPER ABDOMEN: No significant findings. IMPRESSION: No acute thoracic process. No suspicious pulmonary nodules or masses. [facility], , 03/03/2024 11:28 AM
== END | disposition home or self-care (01) ==
LOC: RADCTMAIN 10:23
PROVIDERS: ATTEND Family Medicine
DX: R91.1 Solitary pulmonary nodule (principal); N62 Hypertrophy of breast
CPT/HCPCS: 71260; Q9967